=== PATIENT | male | born 1950 | race Caucasian/White ===

== ENCOUNTER → 2016-11-13 | Outpatient (CLI) | payer MEDICARE ==
--- NOTE | 2016-11-13 10:33 | XR ---
EXAMINATION TYPE: XR chest 2V DATE OF EXAM: 11/13/2016 COMPARISON: Chest x-ray 10/30/2015 HISTORY: Hodgkin's lymphoma TECHNIQUE: Frontal and lateral views of the chest are obtained. FINDINGS: There is no focal air space opacity, pleural effusion, or pneumothorax seen. The cardiac silhouette size is within normal limits. The patient is rotated. The osseous structures are intact. IMPRESSION: No acute cardiopulmonary process.
== END | disposition home or self-care (01) ==
LOC: RADXRMAIN 09:42
PROVIDERS: ATTEND Family Medicine
DX: Z08 Encounter for follow-up examination after completed treatment for malignant neoplasm (principal); Z85.71 Personal history of Hodgkin lymphoma
CPT/HCPCS: 71020

== ENCOUNTER → 2017-11-18 | Outpatient (CLI) | payer MEDICARE ==
--- NOTE | 2017-11-18 13:32 | XR ---
EXAMINATION TYPE: XR chest 2V DATE OF EXAM: 11/18/2017 COMPARISON: Prior chest 11/13/2016 HISTORY: Lymphoma TECHNIQUE: Frontal and lateral views of the chest are obtained. FINDINGS: There is no focal air space opacity, pleural effusion, or pneumothorax seen. The cardiac silhouette size is stable. Biapical pleural thickening is stable. The osseous structures are intact. IMPRESSION: No acute cardiopulmonary process.
== END ==
LOC: RADXRMAIN 11:53
PROVIDERS: ATTEND Family Medicine
DX: Z08 Encounter for follow-up examination after completed treatment for malignant neoplasm (principal); Z85.71 Personal history of Hodgkin lymphoma
CPT/HCPCS: 71046

== ENCOUNTER → 2018-02-10 | Outpatient (CLI) | payer MEDICARE ==
--- NOTE | 2018-02-10 12:43 | XR ---
EXAMINATION TYPE: XR cervical spine limited DATE OF EXAM: 02/10/2018 COMPARISON: NONE HISTORY: Pain TECHNIQUE: Three views are submitted. FINDINGS: The odontoid is intact. There are no compression deformities. The prevertebral soft tissue structur es are within normal limits. There is extensive calcification the soft tissue the neck likely relate d atherosclerotic change of the carotid arteries. There is facet arthropathy at all levels with degenerative disc particularly noted at C5-6 and C6-7. Hypertrophic spurring noted. There is a slight anterolisthesis of C3 on C4 and C4 on C5. Lung apices are clear with atherosclerotic change aorta. IMPRESSION: 1. Multilevel degenerative disc disease with anterolisthesis of C3 on 4 and C4 on C5. Consider MRI fo llow-up. 2. Extensive atherosclerotic changes of the carotid arteries correlate clinically.
== END | disposition home or self-care (01) ==
LOC: RADXRMAIN 12:07
PROVIDERS: ATTEND Family Medicine
DX: M50.322 Other cervical disc degeneration at C5-C6 level (principal); M43.12 Spondylolisthesis, cervical region
CPT/HCPCS: 72040

== ENCOUNTER → 2018-10-19 | Outpatient (CLI) | payer MEDICARE ==
--- NOTE | 2018-10-19 11:33 | XR ---
EXAMINATION TYPE: XR chest 2V DATE OF EXAM: 10/19/2018 COMPARISON: 11/18/2017 HISTORY: 68 year-old male history of Hodgkin's lymphoma TECHNIQUE: Frontal and lateral views FINDINGS: Heart normal size. Atherosclerotic arch calcifications. Mild interstitial prominence has a chronic ap pearance. No consolidation or pleural effusion. IMPRESSION: Chronic changes without acute cardiopulmonary process.
== END | disposition home or self-care (01) ==
LOC: RADXRMAIN 09:44
PROVIDERS: ATTEND Family Medicine
DX: Z08 Encounter for follow-up examination after completed treatment for malignant neoplasm (principal); R91.8 Other nonspecific abnormal finding of lung field; Z85.71 Personal history of Hodgkin lymphoma
CPT/HCPCS: 71046

== ENCOUNTER → 2019-11-18 | Outpatient (CLI) | payer MEDICARE ==
--- NOTE | 2019-11-18 11:36 | XR ---
EXAMINATION TYPE: XR chest 2V DATE OF EXAM: 11/18/2019 COMPARISON: Prior chest 10/19/2018 HISTORY: Hodgkin's lymphoma TECHNIQUE: Frontal and lateral views of the chest are obtained. FINDINGS: There is no focal air space opacity, pleural effusion, or pneumothorax seen. Interstitium is increased in the left lung base which appears stable. The cardiac silhouette size is within torie l limits. The aorta is dense. The osseous structures are intact. IMPRESSION: No acute cardiopulmonary process. There may be some underlying interstitial lung disease .
== END | disposition home or self-care (01) ==
LOC: RADXRMAIN 08:10
PROVIDERS: ATTEND Family Medicine
DX: Z85.71 Personal history of Hodgkin lymphoma (principal)
CPT/HCPCS: 71046

== ENCOUNTER → 2020-05-01 | Outpatient (CLI) | payer MEDICARE | END | disposition home or self-care (01) | LOC: LABWHC1 12:51 | PROVIDERS: ATTEND Psychiatry & Neurology Neurology | DX: R53.1 Weakness (principal) | CPT/HCPCS: 36415; 82550; 82607 ==

== ENCOUNTER → 2020-05-09 | Outpatient (CLI) | payer MEDICARE ==
[2020-05-09 13:13] LABS: HCT 46.2 % (39.0-53.0); HGB 15.7 gm/dL (13.0-17.5); MCH 31.7 pg (25.0-35.0); MCHC 33.9 g/dL (31.0-37.0); MCV 93.7 fL (80.0-100.0); Mean Platelet Volume 7.8; Platelet Count 313 k/uL (150-450); RBC 4.94 m/uL (4.30-5.90); RDW 14.2 % (11.5-15.5); WBC 11.5 k/uL (3.8-10.6)
[2020-05-09 13:17] LABS: Potassium 4.9 mmol/L (3.5-5.1)
== END | disposition home or self-care (01) ==
LOC: LABPAT 11:51
PROVIDERS: ATTEND Internal Medicine Interventional Cardiology
DX: Z01.818 Encounter for other preprocedural examination (principal); R94.39 Abnormal result of other cardiovascular function study
CPT/HCPCS: 36415; 80051; 82565; 84520; 85027

== ENCOUNTER 2020-05-11 06:28 | Day surgery (SDC) | payer MEDICARE ==
[2020-05-09 10:22] VITALS: BMI 30.8
[~2020-05-11 06:28] MED LIST: ALPRAZolam 0.25 MG TAB PO PRN; ALPRAZolam 0.5 MG TAB PO PRN; ASPIRIN 325 MG TAB PO STA; ATORVASTATIN 80 MG TAB PO STA; NITROGLYCERIN SL TABS 0.4 MG TAB SUBLINGUAL PRN; SODIUM CHLORIDE 0.9% 1,000 ML in EMPTY BAG 1 BAG IV ONE
[2020-05-11] MEDS ORDERED: SODIUM CHLORIDE 0.9% 1,000 ML IV ONE (07:05)
[2020-05-11 07:11] VITALS: RESP 16; TEMP 98.7
[2020-05-11 07:21] LABS: Basophils # (A) 0.2 k/uL (0-0.2); Basophils % (A) 1 %; Eosinophils # (A) 0.4 k/uL (0-0.7); Eosinophils % (A) 3 %; HGB 15.2 gm/dL (13.0-17.5); Lymphocytes # (A) 2.4 k/uL (1.0-4.8); Lymphocytes % (A) 18 %; MCH 31.9 pg (25.0-35.0); MCHC 34.6 g/dL (31.0-37.0); Monocytes # (A) 1.4 k/uL (0-1.0); Monocytes % (A) 11 %; Neutrophils # (A) 8.8 k/uL (1.3-7.7); Neutrophils % (A) 65 %; Platelet Count 298 k/uL (150-450); RBC 4.79 m/uL (4.30-5.90); RDW 14.1 % (11.5-15.5); WBC 13.6 k/uL (3.8-10.6)
[2020-05-11 07:32] LABS: Calcium 8.8 mg/dL (8.4-10.2)
[2020-05-11 07:37] LABS: Potassium 4.4 mmol/L (3.5-5.1)
[2020-05-11] MEDS ORDERED: VERAPAMIL 2.5 MG/ML 2 ML AMP ONE (08:56)
[2020-05-11] MEDS ORDERED: HEPARIN SODIUM 1,000 UN/ML (10ML VL) ONE (08:56)
[2020-05-11] MEDS ORDERED: LIDOCAINE 1% INJ 10MG/ML (20 ML MDV) ONE (08:56)
[2020-05-11] MEDS ORDERED: LIDOCAINE 1% INJ 10MG/ML (20 ML MDV) SQ ONE (09:13)
[2020-05-11] MEDS ORDERED: MIDAZOLAM 2 MG/2 ML VIAL IVP ONE (09:13)
[2020-05-11] MEDS ORDERED: VERAPAMIL SYRINGE (5 MG/10 ML) INTRAARTER ONE (09:17)
[2020-05-11] MEDS ORDERED: HEPARIN SODIUM 1,000 UN/ML (10ML VL) IV ONE (09:19)
[2020-05-11] MEDS ORDERED: IOPAMIDOL-370 125ML BTL INJ ONE (09:25)
[2020-05-11] MEDS ORDERED: RX INFO: IV CONTRAST WAS GIVEN 1 EACH MISC MISCELLANE PRN (09:31)
[2020-05-11] MEDS ORDERED: SODIUM CHLORIDE 0.9% 1,000 ML IV SCH (09:45)
--- NOTE | 2020-05-11 09:59 | CC ---
CARDIAC CATHETERIZATION REPORT DATE OF SERVICE: 05/11/2020 PERFORMING PHYSICIAN: Ayaz Sherman MD. PROCEDURE PERFORMED: 1. Selective right and left coronary angiogram. 2. Left heart catheterization. 3. Gradient measurement across the right subclavian. 4. Right subclavian angiogram. INDICATION: This is a 70-year-old gentleman with paroxysmal atrial fibrillation as well as hypertension and dyslipidemia, was experiencing symptoms of shortness of breath with exertion and underwent myocardial perfusion imaging stress test and that revealed reversible inferior defect. Because of that, he was brought today to undergo an intervention. APPROACH: Right radial artery. COMPLICATION: None. LEVEL OF SEDATION: Moderate with sedation length of 13 minutes. PROCEDURE DESCRIPTION: After obtaining AN informed consent, the patient was brought to the cardiac laboratory engineer. The right radial artery was cannulated using micropuncture technique, the micropuncture wire passed easily, then I placed a 6-Scottish sheath at the right radial artery. After that, I advanced a 0.035 wire, but the wire stuck in the distal right subclavian. I was able to cross that using a glidewire. After that, I did selective right and left coronary angiogram with JR4 and JL3.5 catheters. Left heart catheterization was performed using the JR4 catheter which crossed the aortic valve, then I did pullback across the valve. The procedure was completed without any complication. SELECTIVE CORONARY ANGIOGRAM: 1. The right coronary artery is a large caliber vessel, it is a dominant vessel. The RCA has mild disease only. Distally bifurcates into PDA and PLV branches, both appeared to be angiographically. 2. The left main is angiographically normal, it bifurcates into LCX and LAD. 3. The LCX is a large caliber vessel, it is a nondominant vessel. The LCX is angiographically normal in the midportion, gives rise into a large OM branch which appeared to be angiographically normal and the circumflex continues after that as a small-caliber vessel in the AV groove. 4. The LAD is a large caliber vessel and appeared to be angiographically normal in the midportion, gives rise into a large diagonal branch which seems to be angiographically normal. 5. HEMODYNAMICS: The LVEDP was 12 mmHg without significant gradient across the aortic valve. 6. Gradient across the right subclavian. The gradient across the right subclavian was measured using JR4 catheter. The gradient was non-significant. Then a right subclavian angiogram was performed and that revealed mild to moderate lesion in the right subclavian, appeared to be calcified. CONCLUSION: 1. Mild nonobstructive coronary artery disease. 2. Intermediate lesion involving the right subclavian artery. POSTPROCEDURE MANAGEMENT: 1. Medical treatment. 2. Aggressive cholesterol control. 3. Follow up with the patient. MMKEITH / NICHON: [id number] /
[2020-05-11 11:08] VITALS: BP 104/62; PULSE 81
== END 2020-05-11 12:37 | disposition home or self-care (01) ==
LOC: CATHCVL 06:28
PROVIDERS: ATTEND Internal Medicine Interventional Cardiology
DX: I25.110 Atherosclerotic heart disease of native coronary artery with unstable angina pectoris (principal); I77.89 Other specified disorders of arteries and arterioles; R06.02 Shortness of breath; R94.39 Abnormal result of other cardiovascular function study; R00.2 Palpitations; I48.0 Paroxysmal atrial fibrillation; I10 Essential (primary) hypertension; E78.5 Hyperlipidemia, unspecified; E78.00 Pure hypercholesterolemia, unspecified; G89.29 Other chronic pain; M79.10 Myalgia, unspecified site; R53.1 Weakness; I49.3 Ventricular premature depolarization; E66.3 Overweight; Z87.891 Personal history of nicotine dependence; Z79.899 Other long term (current) drug therapy; Z79.01 Long term (current) use of anticoagulants; Z79.891 Long term (current) use of opiate analgesic; Z68.30 Body mass index [BMI] 30.0-30.9, adult
CPT/HCPCS: 93458; 75710; 80048; 85025; C1769; J2250; J2001; J1644; Q9967

== ENCOUNTER → 2020-05-22 | Outpatient (CLI) | payer MEDICARE | END | disposition home or self-care (01) | LOC: CPPFTMAIN 14:02 | PROVIDERS: ATTEND Family Medicine | DX: J44.9 Chronic obstructive pulmonary disease, unspecified (principal); R94.2 Abnormal results of pulmonary function studies | CPT/HCPCS: 94060; 94726; 94729 ==

== ENCOUNTER 2020-06-09 19:27 | Inpatient (IN) | payer MEDICARE ==
--- NOTE | 2020-06-09 20:04 | ED ---
General Adult HPI - General Chief complaint: Extremity Problem,Nontraumatic Stated complaint: Swelling Time Seen by Provider: 06/09/20 19:43 Source: patient, RN notes reviewed, old records reviewed Mode of arrival: ambulatory Limitations: no limitations - History of Present Illness Initial comments: 70-year-old male presenting with pain and swelling in the left hand and forearm. Patient had surgery on his left thumb on May 25. He's had progressive pain and swelling in the left hand and forearm. He states he has pain with range of motion of any of his fingers. He denies fever. He has history of splenectomy, he is on chronic steroids for inflammatory condition. He was seen by orthopedics on June 03 and for evaluation of these symptoms. He states that he was given a steroid injection on the in his left wrist. He denies fever or constitutional symptoms. - Related Data Home Medications Medication Instructions Recorded Confirmed Atorvastatin [Lipitor] 40 mg PO PC-SUPPER 01/11/15 05/09/20 lisinopriL 40 mg PO PC-SUPPER 01/11/15 05/11/20 HYDROcodone/APAP 7.5-325MG [[place] 1 tab PO BID PRN 03/14/15 05/11/20 7.5-325] Metoprolol Succinate [Toprol XL] 25 mg PO PC-SUPPER 05/09/20 05/11/20 Tamsulosin [Flomax] 0.4 mg PO PC-SUPPER 05/09/20 05/11/20 amLODIPine [Norvasc] 5 mg PO DAILY 05/09/20 05/11/20 Allergies Allergy/AdvReac Type Severity Reaction Status Date / Time No Known Allergies Allergy Verified 06/09/20 21:11 Review of Systems ROS Statement: Those systems with pertinent positive or pertinent negative responses have been documented in the HPI. ROS Other: All systems not noted in ROS Statement are negative. 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 cluster migraines, eczema, History of Any Multi-Drug Resistant Organisms: None Reported Past Surgical History: Back Surgery, Heart Catheterization, Orthopedic Surgery Additional Past Surgical History / Comment(s): lumbar laminectomy with decompression L2-3. lumbar surgery x2, left carpal tunnel, spleenectomy, gunnar cataracts, left thumb trigger finger Past Anesthesia/Blood Transfusion Reactions: No Reported Reaction Past Psychological History: No Psychological Hx Reported Smoking Status: Former smoker Past Alcohol Use History: None Reported Past Drug Use History: None Reported - Past Family History Brother(s) Family Medical History: Cancer Additional Family Medical History / Comment(s): colon Sister(s) Family Medical History: Cancer Additional Family Medical History / Comment(s): uterine General Exam Limitations: no limitations General appearance: alert, in no apparent distress Head exam: Present: atraumatic, normocephalic Eye exam: Present: normal appearance, PERRL ENT exam: Present: normal exam Neck exam: Present: normal inspection. Absent: tenderness, meningismus Respiratory exam: Present: normal lung sounds bilaterally. Absent: respiratory distress Cardiovascular Exam: Present: regular rate, normal rhythm GI/Abdominal exam: Present: soft. Absent: distended, tenderness, guarding, rebound Extremities exam: Present: other (Left hand and forearm:, There is soft tissue swelling throughout the hand to the elbow. There is no warmth, minimal erythema. There is no fluctuance or induration. Normal cap refill. He has significant pain with both active and passive range of motion of all digits. Both on flexion and extensio) Course Vital Signs 06/09/20 19:33 Temperature 98.6 F Pulse Rate 110 H Respiratory 18 Rate Blood Pressure 154/91 O2 Sat by Pulse 96 Oximetry Medical Decision Making - Medical Decision Making 70-year-old male with pain and swelling in the left forearm, recent trigger release first digit. Surgical incision is clean dry and intact, no erythema, no purulent drainage. Patient is in a flexed posture of the digits with pain with range of motion. There is soft tissue swelling throughout the hand and forearm and tenderness on the palmar surface of the wrist. There is minimal erythema, no induration or fluctuance. I do have a high suspicion for deep space infect ion including a flexor tenosynovitis. Patient has history of chronic daily steroid use, 10 mg of prednisone as well as surgical history of splenectomy. Patient is afebrile and otherwise well-appearing. He has no leukocytosis white blood cell count of 20, and elevated CRP. I did discuss case with Dr. Molina covering for [facility]. He does recommend initiating antibiotics, patient is initiated on Unasyn and vancomycin. He will be admitted to orthopedics with internal medicine on consult. NPO after midnight. - Lab Data Result diagrams: 06/09/20 20:05 06/09/20 20:05 Lab Results 06/09/20 06/09/20 06/09/20 Range/Units 20:05 20:05 20:05 WBC 19.9 H (3.8-10.6) k/uL RBC 4.72 (4.30-5.90) m/uL Hgb 14.8 (13.0-17.5) gm/dL Hct 43.8 (39.0-53.0) % MCV 92.7 (80.0-100.0) fL MCH 31.3 (25.0-35.0) pg MCHC 33.8 (31.0-37.0) g/dL RDW 14.1 (11.5-15.5) % Plt Count 326 (150-450) k/uL MPV 7.5 Neutrophils % 79 % Lymphocytes % 7 % Monocytes % 9 % Eosinophils % 2 % Basophils % 2 % Neutrophils # 15.7 H (1.3-7.7) k/uL Lymphocytes # 1.4 (1.0-4.8) k/uL Monocytes # 1.7 H (0-1.0) k/uL Eosinophils # 0.4 (0-0.7) k/uL Basophils # 0.4 H (0-0.2) k/uL Sodium 136 L (137-145) mmol/L Potassium 4.4 (3.5-5.1) mmol/L Chloride 106 (98-107) mmol/L Carbon Dioxide 23 (22-30) mmol/L Anion Gap 7 mmol/L BUN 31 H (9-20) mg/dL Creatinine 1.09 (0.66-1.25) mg/dL Est GFR (CKD-EPI)AfAm 80 (>60 ml/min/1.73 sqM) Est GFR (CKD-EPI)NonAf 69 (>60 ml/min/1.73 sqM) Glucose 118 H (74-99) mg/dL Plasma Lactic Acid Artur 1.8 (0.7-2.0) mmol/L Calcium 9.0 (8.4-10.2) mg/dL Magnesium 2.2 (1.6-2.3) mg/dL Total Bilirubin 0.3 (0.2-1.3) mg/dL AST 24 (17-59) U/L ALT 32 (4-49) U/L Alkaline Phosphatase 59 (38-126) U/L C-Reactive Protein 56.6 H (<10.0) mg/L Total Protein 6.7 (6.3-8.2) g/dL Albumin 3.9 (3.5-5.0) g/dL Disposition Clinical Impression: Suppurative tenosynovitis of flexor tendon Disposition: ADMITTED IP TO THIS [facility] Condition: Stable Is patient prescribed a controlled substance at d/c from ED?: No Referrals: Prashant Baez DO [Primary Care Provider] - 1-2 days Decision to Admit Reason: Admit from EC Decision Date: 06/09/20 Decision Time: 21:11
[2020-06-09 20:22] LABS: Basophils # (A) 0.4 k/uL (0-0.2); Basophils % (A) 2 %; Eosinophils # (A) 0.4 k/uL (0-0.7); Eosinophils % (A) 2 %; HCT 43.8 % (39.0-53.0); HGB 14.8 gm/dL (13.0-17.5); Lymphocytes # (A) 1.4 k/uL (1.0-4.8); Lymphocytes % (A) 7 %; MCH 31.3 pg (25.0-35.0); MCHC 33.8 g/dL (31.0-37.0); MCV 92.7 fL (80.0-100.0); Mean Platelet Volume 7.5; Monocytes # (A) 1.7 k/uL (0-1.0); Monocytes % (A) 9 %; Neutrophils # (A) 15.7 k/uL (1.3-7.7); Neutrophils % (A) 79 %; Platelet Count 326 k/uL (150-450); RBC 4.72 m/uL (4.30-5.90); RDW 14.1 % (11.5-15.5); WBC 19.9 k/uL (3.8-10.6)
[2020-06-09 20:34] LABS: Albumin 3.9 g/dL (3.5-5.0); C Reactive Protein 56.6 mg/L (<10.0); Magnesium 2.2 mg/dL (1.6-2.3); Potassium 4.4 mmol/L (3.5-5.1); Total Bilirubin 0.3 mg/dL (0.2-1.3); Total Protein 6.7 g/dL (6.3-8.2)
[2020-06-09] MEDS ORDERED: AMPICILLIN-SULBACTAM 3 GM in SODIUM CHLORIDE 0.9% 100 ML IVPB STA (20:49)
[2020-06-09] MEDS ORDERED: VANCOMYCIN IV PER PHARMACY 1 EACH MISC MISCELLANE PRN (20:50)
--- NOTE | 2020-06-09 20:55 | US ---
EXAMINATION TYPE: US venous doppler duplex UE LT DATE OF EXAM: 06/09/2020 COMPARISON: NONE CLINICAL HISTORY: dvt. Recent trigger finger surgery. pain and redness left wrist SIDE PERFORMED: Left Left Arm: Negative for DVT There is patency of the jugular subclavian axillary brachial veins. There is patency of the ulna and radial veins. There is normal augmentation. IMPRESSION: There is no evidence of deep vein thrombosis in the left arm.
[2020-06-09] MEDS ORDERED: VANCOMYCIN 1,500 MG in SODIUM CHLORIDE 0.9% 250 ML IVPB STA (20:57)
--- NOTE | 2020-06-09 20:57 | US ---
EXAMINATION TYPE: US extremity nonvasc mass LT DATE OF EXAM: 06/09/2020 COMPARISON: NONE CLINICAL HISTORY: Abscess, fluid collection, palmar left forearm. recent trigger finger surgery. lef t wrist lump, redness, swelling No sonographic abnormality visualized IMPRESSION: No discrete solid or cystic mass identified in the area of concern with the soft tissue s welling.
[2020-06-09] MEDS ORDERED: MORPHINE SULFATE 4 MG/ML SYRINGE IVP STA (21:01)
[2020-06-09] MEDS ORDERED: MORPHINE SULFATE 4 MG/ML SYRINGE IV PRN (21:02)
[2020-06-09] MEDS ORDERED: NALOXONE 0.4 MG/ML 1 ML VIAL IV PRN (21:02)
[2020-06-09] MEDS ORDERED: ACETAMINOPHEN TAB 325 MG TAB PO PRN (21:02)
[2020-06-09] MEDS: SODIUM CHLORIDE 0.9% 1,000 ML IV SCH (21:40)
[2020-06-09] MEDS ORDERED: HYDROmorphone 0.2 MG/1 ML SYRINGE IVP PRN (22:46)
[2020-06-09] MEDS: HYDROmorphone 0.5 MG/0.5 ML SYRINGE IVP PRN (23:08)
[2020-06-10] MEDS: AMPICILLIN-SULBACTAM 3 GM in SODIUM CHLORIDE 0.9% 100 ML IVPB SCH ×3 (01:10→18:55)
[2020-06-10] MEDS: HYDROmorphone 0.5 MG/0.5 ML SYRINGE IVP PRN ×3 (01:54→08:11)
[2020-06-10] MEDS ORDERED: HYDROmorphone 1 MG/ML 1 ML SYRINGE IVP STA (02:38)
[2020-06-10 07:04] LABS: Basophils # (A) 0.3 k/uL (0-0.2); Basophils % (A) 2 %; Eosinophils # (A) 0.2 k/uL (0-0.7); Eosinophils % (A) 2 %; HCT 44.4 % (39.0-53.0); HGB 15.2 gm/dL (13.0-17.5); Lymphocytes # (A) 2.1 k/uL (1.0-4.8); Lymphocytes % (A) 13 %; MCH 32.1 pg (25.0-35.0); MCHC 34.1 g/dL (31.0-37.0); MCV 94.1 fL (80.0-100.0); Mean Platelet Volume 7.6; Monocytes # (A) 1.7 k/uL (0-1.0); Monocytes % (A) 11 %; Neutrophils % (A) 71 %; Platelet Count 322 k/uL (150-450); RBC 4.72 m/uL (4.30-5.90); RDW 14.4 % (11.5-15.5); WBC 15.6 k/uL (3.8-10.6)
[2020-06-10 07:12] LABS: Albumin 3.8 g/dL (3.5-5.0); Calcium 8.9 mg/dL (8.4-10.2); Magnesium 2.3 mg/dL (1.6-2.3); Potassium 4.5 mmol/L (3.5-5.1); Total Bilirubin 0.5 mg/dL (0.2-1.3); Total Protein 6.7 g/dL (6.3-8.2)
[2020-06-10] MEDS: VANCOMYCIN 1,500 MG in SODIUM CHLORIDE 0.9% 250 ML IVPB SCH ×2 (08:11→21:07)
[2020-06-10] MEDS: amLODIPine 5 MG TAB PO SCH (08:11)
[2020-06-10] MEDS: HYDROcodone/APAP 7.5-325MG 1 EACH TAB PO PRN ×3 (08:59→19:58)
--- NOTE | 2020-06-10 10:04 | P.HPOR ---
History of Present Illness H&P Date: 06/10/20 This is a 70-year-old was admitted for left hand infection. Patient is known to [facility]. Patient states that he had surgery for trigger thumb on May 25. Patient states that he was seen on the and 05 of June for swelling in the left hand. Patient states that he was also given an injection in the left wrist on 06/05/2020. Patient states that last night the swelling started spreading to his left forearm and he has pain with any motion of the fingers of the left hand. Patient states that he takes steroids daily. Patient denies any shortness breath, chest pain, abdominal pain or any fever/chills. Patient's past medical history significant for atrial fibrillation , splenectomy, fibromyalgia, COPD, hyperlipidemia, hypertension, history of non- Hodgkin's lymphoma, eczema and history of lumbar laminectomy and decompression. Review of Systems See HPI. 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 cluster migraines, eczema, History of Any Multi-Drug Resistant Organisms: None Reported Past Surgical History: Back Surgery, Heart Catheterization, Orthopedic Surgery Additional Past Surgical History / Comment(s): lumbar laminectomy with decompression L2-3. lumbar surgery x2, left carpal tunnel, spleenectomy, gunnar cataracts, left thumb trigger finger Past Anesthesia/Blood Transfusion Reactions: No Reported Reaction Past Psychological History: No Psychological Hx Reported Additional Psychological History / Comment(s): . Smoking Status: Former smoker Past Alcohol Use History: None Reported Additional Past Alcohol Use History / Comment(s): Pt started smoking in 1968 and quit in 2007, 1 PPD Past Drug Use History: None Reported - Past Family History Brother(s) Family Medical History: Cancer Additional Family Medical History / Comment(s): colon Sister(s) Family Medical History: Cancer Additional Family Medical History / Comment(s): uterine Medications and Allergies Home Medications Medication Instructions Recorded Confirmed Type lisinopriL 40 mg PO PC-SUPPER 01/11/15 06/09/20 History HYDROcodone/APAP 7.5-325MG [[place] 1 tab PO BID PRN 03/14/15 06/09/20 History 7.5-325] Metoprolol Succinate [Toprol XL] 25 mg PO PC-SUPPER 05/09/20 06/09/20 History Tamsulosin [Flomax] 0.4 mg PO PC-SUPPER 05/09/20 06/09/20 History Ammonium Lactate Cream [Lac-Hydrin 1 applic TOPICAL BID PRN 06/09/20 06/09/20 History 12% Cream] Ascorbic Acid [Vitamin C] 1,000 mg PO DAILY 06/09/20 06/09/20 History Atorvastatin Calcium [Lipitor] 40 mg PO PC-SUPPER 06/09/20 06/09/20 History Cyclobenzaprine [Flexeril] 10 mg PO TID PRN 06/09/20 06/09/20 History Lidocaine 4% Cream [Lmx 4] 1 applic TOPICAL DAILY 06/09/20 06/09/20 History Tiotropium Br/Olodaterol HCl 2 spray INHALATION RT-DAILY 06/09/20 06/09/20 History [Stiolto Respimat Inhal [place]] amLODIPine [Norvasc] 10 mg PO DAILY 06/09/20 06/09/20 History diphenhydrAMINE [Benadryl] 50 mg PO DAILY PRN 06/09/20 06/09/20 History predniSONE 10 mg PO DAILY 06/09/20 06/09/20 History Allergies Allergy/AdvReac Type Severity Reaction Status Date / Time No Known Allergies Allergy Verified 06/09/20 21:11 Physical Examination Vital signs are stable. Patient is in no acute distress and is alert and oriented 3. There is swelling of the left hand. There is pain with passive range of motion of the fingers of the left hand. There is a healing incision over the volar aspect of the left thumb. There is no drainage. There is swelling over the volar aspect of the left wrist and forearm. Compartments are soft. There is mild erythema over the palmar aspect of the left hand. There is erythema with the volar aspect of the left wrist. Patient has pain with range of motion of the left wrist. Sensation is intact. The left upper extremity is warm and well perfused. Neurovascular status and circulatory status are intact. Exams of the head, neck, right upper extremity and bilateral lower extremities are within normal limits. Results A venous Doppler ultrasound of the left upper extremity is negative for DVT. An ultrasound of the left upper extremity shows: No discrete solid or cystic mass identified in the area of concern with the soft tissue swelling. - Labs Labs: Abnormal Lab Results - Last 24 Hours (Table) 06/09/20 06/09/20 06/10/20 Range/Units 20:05 20:05 06:37 WBC 19.9 H 15.6 H (3.8-10.6) k/uL Neutrophils # 15.7 H 11.0 H (1.3-7.7) k/uL Monocytes # 1.7 H 1.7 H (0-1.0) k/uL Basophils # 0.4 H 0.3 H (0-0.2) k/uL Sodium 136 L (137-145) mmol/L BUN 31 H (9-20) mg/dL Glucose 118 H (74-99) mg/dL C-Reactive Protein 56.6 H (<10.0) mg/L 06/10/20 Range/Units 06:37 WBC (3.8-10.6) k/uL Neutrophils # (1.3-7.7) k/uL Monocytes # (0-1.0) k/uL Basophils # (0-0.2) k/uL Sodium 136 L (137-145) mmol/L BUN 33 H (9-20) mg/dL Glucose 110 H (74-99) mg/dL C-Reactive Protein (<10.0) mg/L H & H 06/09/20 06/10/20 Range/Units 20:05 06:37 Hgb 14.8 15.2 (13.0-17.5) gm/dL Hct 43.8 44.4 (39.0-53.0) % Result Diagrams: 06/10/20 06:37 06/10/20 06:37 Assessment and Plan (1) Flexor tenosynovitis of thumb Current Visit: Yes Status: Acute Code(s): M65.9 - SYNOVITIS AND TENOSYNOVITIS, UNSPECIFIED SNOMED Code(s): 672111447 (2) Infection of left hand Current Visit: Yes Status: Acute Code(s): L08.9 - LOCAL INFECTION OF THE SKIN AND SUBCUTANEOUS TISSUE, UNSP SNOMED Code(s): 835801433 (3) Status post trigger finger release Current Visit: Yes Status: Acute Code(s): Z98.890 - OTHER SPECIFIED POSTPROCEDURAL STATES SNOMED Code(s): 585215014 Plan: 1. Patient is to be NPO. 2. Continue pain control. 3. Rest and elevate the left arm. 4. Patient is afebrile. White blood cell count is trending down from 19.9 to 15.6 today. 5. Appreciate input from medicine. 6. Planning for I&D of the left hand and wrist by Dr Otf Mckenzie later today pending patient consent.
[2020-06-10] MEDS ORDERED: HYDROmorphone 0.2 MG/1 ML SYRINGE IVP PRN (10:07)
[2020-06-10] MEDS ORDERED: HYDROmorphone 0.5 MG/0.5 ML SYRINGE IVP PRN (10:07)
[2020-06-10] MEDS: HYDROmorphone 1 MG/ML 1 ML SYRINGE IVP PRN ×3 (11:08→21:20)
--- NOTE | 2020-06-10 14:21 | P.CNPUL ---
History of Present Illness Consult date: 06/10/20 Reason for consult: other Chief complaint: Infected left hand History of present illness: This is a 70-year-old male came into the hospital with the pain and stiffness of the left hand and forearm, patient had the prior surgery back in 05/25/2020 on the left common, pain has been progressive with limited range of movement also has been swelling and erythematous and edema, patient does have a history of splenectomy have been on steroids for chronic inflammatory condition, patient was given a steroid shot back on May 27 in the left wrist without any significant relief, past medical history significant for dyslipidemia hypertension hypertensive cardiovascular disease, arthritis, paroxysmal atrial fibrillation and COPD non-Hodgkin's lymphoma Review of Systems All systems: negative Past Medical History Past Medical History: Atrial Fibrillation, Cancer, COPD, Fibromyalgia, Hyperlipidemia, Hypertension, Osteoarthritis (OA), Skin Disorder Additional Past Medical History / Comment(s): 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 cluster migraines, eczema, History of Any Multi-Drug Resistant Organisms: None Reported Past Surgical History: Back Surgery, Heart Catheterization, Orthopedic Surgery Additional Past Surgical History / Comment(s): lumbar laminectomy with decompression L2-3. lumbar surgery x2, left carpal tunnel, spleenectomy, gunnar cataracts, left thumb trigger finger Past Anesthesia/Blood Transfusion Reactions: No Reported Reaction Past Psychological History: No Psychological Hx Reported Additional Psychological History / Comment(s): . Smoking Status: Former smoker Past Alcohol Use History: None Reported Additional Past Alcohol Use History / Comment(s): Pt started smoking in 1968 and quit in 2007, 1 PPD Past Drug Use History: None Reported - Past Family History Brother(s) Family Medical History: Cancer Additional Family Medical History / Comment(s): colon Sister(s) Family Medical History: Cancer Additional Family Medical History / Comment(s): uterine Medications and Allergies Home Medications Medication Instructions Recorded Confirmed Type lisinopriL 40 mg PO PC-SUPPER 01/11/15 06/09/20 History HYDROcodone/APAP 7.5-325MG [Novi 1 tab PO BID PRN 03/14/15 06/09/20 History 7.5-325] Metoprolol Succinate [Toprol XL] 25 mg PO PC-SUPPER 05/09/20 06/09/20 History Tamsulosin [Flomax] 0.4 mg PO PC-SUPPER 05/09/20 06/09/20 History Ammonium Lactate Cream [Lac-Hydrin 1 applic TOPICAL BID PRN 06/09/20 06/09/20 History 12% Cream] Ascorbic Acid [Vitamin C] 1,000 mg PO DAILY 06/09/20 06/09/20 History Atorvastatin Calcium [Lipitor] 40 mg PO PC-SUPPER 06/09/20 06/09/20 History Cyclobenzaprine [Flexeril] 10 mg PO TID PRN 06/09/20 06/09/20 History Lidocaine 4% Cream [Lmx 4] 1 applic TOPICAL DAILY 06/09/20 06/09/20 History Tiotropium Br/Olodaterol HCl 2 spray INHALATION RT-DAILY 06/09/20 06/09/20 History [Stiolto Respimat Inhal [place]] amLODIPine [Norvasc] 10 mg PO DAILY 06/09/20 06/09/20 History diphenhydrAMINE [Benadryl] 50 mg PO DAILY PRN 06/09/20 06/09/20 History predniSONE 10 mg PO DAILY 06/09/20 06/09/20 History Allergies Allergy/AdvReac Type Severity Reaction Status Date / Time No Known Allergies Allergy Verified 06/09/20 21:11 Physical Exam Vitals: Vital Signs Temp Pulse Pulse Resp BP BP Pulse Ox 06/10/20 09:21 14 06/10/20 08:04 97.4 F L 85 14 125/75 96 06/10/20 03:00 97.8 F 87 18 92/65 94 L 06/09/20 21:42 98.8 F 110 H 18 156/106 96 06/09/20 21:32 97 F L 104 H 18 138/78 06/09/20 19:33 98.6 F 110 H 18 154/91 96 Intake and Output 06/09/20 06/10/20 06/10/20 22:59 06:59 14:59 Other: Voiding Method Toilet # Voids 1 1 Weight 97.522 kg - Constitutional General appearance: average body habitus, cooperative, disheveled - EENT Eyes: PERRLA Ears: bilateral: normal - Neck Neck: normal ROM Carotids: bilateral: upstroke normal Thyroid: bilateral: normal size - Respiratory Respiratory: bilateral: CTA - Cardiovascular Rhythm: regular Heart sounds: normal: S1, S2 - Gastrointestinal General gastrointestinal: decreased bowel sounds, soft - Integumentary Left hand and forearm swelling with a right hematoma edema Results - Laboratory Findings CBC and BMP: 06/10/20 06:37 06/10/20 06:37 Abnormal lab findings: Abnormal Labs 06/09/20 06/09/20 06/10/20 20:05 20:05 06:37 WBC 19.9 H 15.6 H Neutrophils # 15.7 H 11.0 H Monocytes # 1.7 H 1.7 H Basophils # 0.4 H 0.3 H Sodium 136 L BUN 31 H Glucose 118 H C-Reactive Protein 56.6 H 06/10/20 06:37 WBC Neutrophils # Monocytes # Basophils # Sodium 136 L BUN 33 H Glucose 110 H C-Reactive Protein - Diagnostic Findings Additional studies: X-ray of the hand ultrasound no DVT is seen, Assessment and Plan Assessment: Cellulitis left hand Sepsis Hypertension hypertensive cardiovascular disease Dyslipidemia History of lymphoma Immunosuppressed status due to long-term prednisone use as well as in splenectomy Plan: Agree with IV vancomycin and Unasyn Recommend infectious disease evaluation Time with Patient: Greater than 30
[2020-06-10] MEDS ORDERED: fentaNYL (PF) 50 MCG/ML 2 ML AMP IVP ONE (17:08)
[2020-06-10] MEDS ORDERED: PROPOFOL 10 MG/ML 20 ML VIAL IV ONE (17:22)
[2020-06-10] MEDS ORDERED: BUPIVACAINE (PF) 0.25% 30 ML VIAL SQ ONE ×2 (17:22)
[2020-06-10] MEDS ORDERED: fentaNYL (PF) 50 MCG/ML 2 ML AMP ONE (17:22)
[2020-06-10] MEDS ORDERED: LIDOCAINE 1% INJ 10MG/ML (20 ML MDV) ONE (17:22)
[2020-06-10] MEDS ORDERED: MIDAZOLAM 2 MG/2 ML VIAL ONE (17:22)
[2020-06-10] MEDS ORDERED: PHENYLEPHRINE 10 MG/ML VIAL ONE (17:22)
[2020-06-10] MEDS ORDERED: SODIUM CHLORIDE 0.9% 1,000 ML IV ONE (17:22)
--- NOTE | 2020-06-10 18:08 | P.OP ---
Date of Procedure: 06/10/20 Preoperative Diagnosis: Postoperative infection left hand Postoperative Diagnosis: Postoperative infection left hand Procedure(s) Performed: Incision and drainage of the left hand Anesthesia: JOHN Surgeon: Otf Mckenzie Estimated Blood Loss (ml): 10 Pathology: other (Aerobic and anaerobic culture) Condition: stable Disposition: PACU Indications for Procedure: This is a 70-year-old gentleman has recently had a trigger thumb release of his left hand. He presented with pain and swelling recently in the office an injection was performed of the wrist. He continued to have significant pain and swelling in his left hand and forearm and presented to the hospital. Patient was admitted, seen and examined and I have recommended an incision and drainage of the left hand due to the significant possibility of a deep space infection. Informed consent was obtained. Operative Findings: The operative findings are consistent with a postoperative infection of the left trigger finger around the flexor tendon of the left thumb. No evidence of any infection at the volar wrist or dorsum of the hand. Description of Procedure: The patient was seen in the preoperative area. The operative site was marked after reviewing the consent. Patient was then brought to the operating room and given a general anesthetic by the anesthesia department. Tourniquet was placed on left upper arm the left upper extremities prepped and draped in the usual sterile fashion. A universal timeout was then performed which confirmed the patient's name, surgical site, ALLERGIES, and consent. The left upper extremity was then exsanguinated, and the tourniquet was inflated to 250 mmHg. The hand wrist and forearm was then examined there was no significant erythema there is large amount of swelling in the palmar aspect of the left hand and the digits of the left hand there is also some moderate swelling on the dorsum of the hand and extending into the forearm. Next, the prior trigger finger release incision site was opened and extended both proximally and distally. Upon entry into this area a large amount of purulent material was encountered. This was cultured. The purulent material was evacuated and the tendon sheath opened both proximally and distally. The tendon was found to be intact. There area was then irrigated with antibiotic solution. Next a volar incision was made in the area of the carpal tunnel with the skin and subcu tissue sharply incised. The carpal tunnel was then opened and examined there is no evidence of any purulent material there. Next another incision was made on the dorsum of the hand, which only clear edematous liquid was encountered. There was no purulent material on the dorsum of the hand. Next all 3 incision sites were then irrigated with antibiotic solution. A second look was then made at the trigger finger site to ensure all the purulent material was evacuated. The wounds were then closed with 4-0 nylon. 30 mL of quarter percent plain Marcaine were injected about the surgical sites. Sterile dressings were applied, the tourniquet was released, and the patient was transferred recovery room in stable condition.
[2020-06-10] MEDS ORDERED: LACTATED RINGERS 1,000 ML IV ONE (18:12)
[2020-06-10] MEDS ORDERED: SENNOSIDES-DOCUSATE SODIUM 1 EACH TAB PO PRN (18:17)
[2020-06-10] MEDS ORDERED: ONDANSETRON 4 MG/2 ML VIAL IVP PRN (18:17)
[2020-06-10] MEDS: SODIUM CHLORIDE 0.9% 1,000 ML IV SCH ×2 (19:00→19:36)
[2020-06-10] MEDS: ATORVASTATIN 40 MG TAB PO SCH (19:05)
[2020-06-10] MEDS: lisinopriL 20 MG TAB PO SCH (19:05)
[2020-06-10] MEDS: METOPROLOL SUCCINATE (ER) 25 MG TAB.ER.24H PO SCH (19:59)
--- NOTE | 2020-06-10 23:41 | CONS ---
CONSULTATION DATE OF SERVICE: 06/10/2020. REASON FOR CONSULTATION: Left hand abscess and bacteremia. HISTORY OF PRESENT ILLNESS: The patient is a 70-year-old male who is status post left trigger thumb release on May 25, 2020. The patient subsequently started having more pain and swelling and redness to the left hand area for which the patient has been evaluated by [facility] on June 04 and June 05. This patient also received an injection to the left wrist on June 05. The patient mentioned last night the swelling started to spread to left forearm and some more pain on motion of the fingers in the left hand. The patient described the pain to be throbbing. Intensity was almost 10 out of 10 in severity with associated swelling and redness. The patient denies high-grade fever. With these symptoms, the patient was advised to go to the [facility] ER. On arrival to the ER, the patient was afebrile. He was tachycardic and did have white count of 19.9. Did have ultrasound that was negative for DVT and did not show any systemic fluid collection. Patient subsequently has been taken to the OR this evening and the patient is status post drainage of the left hand abscess which was noticed to be around the flexor tendon of the left thumb. The patient also have blood cultures drawn which is currently positive with gram-positive cocci. The patient is currently empirically on Unasyn and vancomycin. Infectious Disease was consulted for further management of antibiotic therapy. REVIEW OF SYSTEMS: Positive points have been mentioned in HPI. Rest of the systems are negative. PAST MEDICAL HISTORY: Non-Hodgkin's lymphoma, eczema, chronic back pain, COPD, hyperlipidemia, atrial fibrillation, fibromyalgia. PAST SURGICAL HISTORY: Splenectomy, lumbar laminectomy and decompression, bilateral cataract surgery, left thumb trigger finger release. SOCIAL HISTORY: Remote history of smoking, quit back in 2007. No drinking or drug use. FAMILY HISTORY: Mother history of colon cancer. Sister with a history of uterine cancer. ALLERGIES: No known drug allergies. MEDICATIONS: The patient is currently on Tylenol, Moira, Norvasc, Unasyn 3 g q.8h. he is on Lipitor, Dilaudid, Zestril, Toprol-XL, Narcan, Zofran, Senokot, and vancomycin pharmacy to dose. PHYSICAL EXAMINATION: Blood pressure 133/79 with a pulse of 125, temperature of 98. He is 94% on room air. General description: The patient is an elderly male up in the chair in no distress. No tachypnea or accessory muscles respiration use. HEENT: Examination shows no pallor or scleral icterus. Oral mucous membranes dry. Neck trachea central. No thyromegaly. LUNGS: Unlabored breathing. Clear to auscultation anteriorly. No wheeze or crackles. Heart S1-S2 regular rate and rhythm. ABDOMEN: Soft, no tenderness. No guarding. No rigidity. EXTREMITIES: No edema of the feet. Examination of the left hand swelling and redness which is tender to touch especially on movement. No open wound or any drainage. Neurological: Patient is awake, alert, oriented. Mood and affect normal. LABS: Hemoglobin 15.2, white count 15.6 with a left shift. BUN of 33, creatinine 1.06. Blood culture positive with gram-positive cocci. DIAGNOSTIC IMPRESSION AND PLAN: Patient admitted to the hospital with sepsis secondary to left hand abscess in this patient who did have recent left thumb trigger finger release, status post drainage of the abscess with evidence of gram-positive bacteremia. We will need to cover for MRSA which is the likely pathogen versus other gram-positive pathogen. PLAN: 1. Blood cultures will be repeated to document clearance of bacteremia. 2. Vancomycin pharmacy to dose target of 15 while watching his kidney function and Vanco trough closely. 3. The patient will likely need a PICC line for outpatient IV antibiotic therapy. 4. We will follow on his clinical condition and further adjust medication if needed. Thank you for this consultation. We will follow this patient along with you. MMODL / IJN: [id number] /
[2020-06-11] MEDS: HYDROcodone/APAP 7.5-325MG 1 EACH TAB PO PRN ×4 (00:36→20:18)
[2020-06-11] MEDS: AMPICILLIN-SULBACTAM 3 GM in SODIUM CHLORIDE 0.9% 100 ML IVPB SCH ×4 (00:37→23:39)
[2020-06-11] MEDS: SODIUM CHLORIDE 0.9% 1,000 ML IV SCH ×4 (00:38→23:37)
[2020-06-11] MEDS: HYDROmorphone 1 MG/ML 1 ML SYRINGE IVP PRN ×5 (02:34→21:25)
[2020-06-11] MEDS: amLODIPine 5 MG TAB PO SCH (08:23)
[2020-06-11] MEDS: KETOROLAC 15 MG/ML 1 ML VIAL IVP PRN ×3 (08:24→21:24)
[2020-06-11 09:04] LABS: African American GFR (CKD) >90 (>60 ml/min/1.73 sqM); Non-African American GFR(CKD) 81 (>60 ml/min/1.73 sqM)
[2020-06-11 09:23] LABS: C Reactive Protein 150.1 mg/L (<10.0)
[2020-06-11] MEDS: VANCOMYCIN 1,500 MG in SODIUM CHLORIDE 0.9% 250 ML IVPB SCH ×2 (09:36→21:23)
--- NOTE | 2020-06-11 10:59 | P.PN ---
Subjective Progress Note Date: 06/11/20 This patient is a 70- year old male with a past medical history of atrial fibrillation, fibromyalgia, COPD, hyperlipidemia, hypertension, history of non- Hodgkin's lymphoma, eczema and history of lumbar laminectomy and decompression, who is immunosuppressed due to long-term prednisone use as well as being status- post splenectomy, who is admitted for a left hand infection. The patient had surgery for trigger thumb on May 25. Patient states that he was seen on the and 05 of June for swelling in the left hand. Patient states that he was also given an injection in the left wrist on 06/05/2020. Patient experienced swelling started spreading to his left forearm and pain with any motion of the fingers of the left hand, therefore he presented to [facility] ER for evaluation. Patient was admitted under the care of Dr. Otf Mckenzie for a left hand infection. He was taken to the operating room last evening, and is status-post incision and drainage of the left hand. Today is post-operative day #1. Patient is seen and examined bedside. He states he is experiencing pain in the left hand, although it has improved slightly compared to yesterday. He is able to move his fingers today without significant pain. He is tolerating his diet well. Patient is voiding without issues. He states overall he feels well, he denies fevers, chills, nausea, vomiting. Vital signs stable. Objective - Vital Signs Vital signs: Vital Signs Temp 98 F 06/11/20 09:08 Pulse 88 06/11/20 09:08 Resp 18 06/11/20 09:08 BP 127/81 06/11/20 09:08 Pulse Ox 95 06/11/20 09:08 Intake & Output 06/10/20 06/11/20 06/11/20 18:59 06:59 18:59 Intake Total 500 360 Output Total 10 700 Balance 490 -700 360 Weight 97.522 kg Intake: IV 500 Oral 360 Output: Urine 700 Estimated Blood Loss 10 Other: Voiding Method Toilet Toilet Toilet # Voids 1 2 - Exam On examination, the patient is sitting up in bed in no apparent distress. He is alert and orientated x3. On inspection of the left hand, there is a clean, dry, intact surgical dressing in place. There is no bleeding or drainage through the dressing. The visible p ortion of the fingers are warm and well perfused with brisk capillary refill. Patient is able to flex and extend his fingers actively, without significant discomfort today. Mild pain with PROM of the fingers. No pain with PROM of the elbow. Subjective decreased sensation to light touch of the index and middle fingers. Otherwise sensation is intact. Motor function intact. - Labs CBC & Chem 7: 06/10/20 06:37 06/11/20 06:33 Labs: Abnormal Lab Results - Last 24 Hours (Table) 06/11/20 06/11/20 Range/Units 06:33 06:33 ESR 50 H (0-15) mm/hr C-Reactive Protein 150.1 H (<10.0) mg/L Microbiology - Last 24 Hours (Table) 06/10/20 17:37 Gram Stain - Preliminary Finger - Left First Wound Culture - Preliminary 06/09/20 20:05 Blood Culture Gram Stain - Preliminary Blood 06/10/20 17:37 Anaerobic Culture - Preliminary Finger - Left First 06/09/20 20:07 Blood Culture - Preliminary Blood No Growth after 24 hours 06/09/20 20:05 Blood Culture - Final Blood Assessment and Plan Assessment: Status-post left hand incision and drainage. Post-operative day #1. Plan: - We will leave current surgical dressing in place until tomorrow. He may perform gentle, active ROM of the fingers as tolerated. - Cultures pending. Antibiotic management per infectious disease. - Keep left hand elevated for swelling control. - Pain management as needed. - Appreciate internal medicine input. - We will follow patient closely and make recommendations as needed.
[2020-06-11] MEDS ORDERED: VANCOMYCIN TROUGH DUE 1 EACH MISC MISCELLANE ONE (20:00)
[2020-06-11] MEDS: lisinopriL 20 MG TAB PO SCH (20:18)
[2020-06-11] MEDS: METOPROLOL SUCCINATE (ER) 25 MG TAB.ER.24H PO SCH (20:18)
[2020-06-11] MEDS: ATORVASTATIN 40 MG TAB PO SCH (20:18)
--- NOTE | 2020-06-11 22:55 | PN ---
PROGRESS NOTE DATE OF SERVICE: 06/11/2020 REASON FOR FOLLOWUP: Left hand abscess cellulitis and bacteremia. INTERVAL HISTORY: Patient is currently afebrile. The patient is status post drainage of the abscess left hand. Patient's pain is slightly decreased. Denies having any chest pain or shortness of breath, cough. No nausea. No vomiting. No abdominal pain. No diarrhea. PHYSICAL EXAMINATION: Blood pressure is 127/81, pulse of 80, temperature 98. He is 97% on room air. General description: The patient is an elderly male up in the chair in no distress. Respiratory system: Unlabored breathing, clear to auscultation anteriorly. HEART: S1, S2. Regular rate and rhythm. ABDOMEN: Soft. No tenderness. Left hand currently dressed up. No obvious draining on the dressing. LABS: Blood culture with Staph aureus, sensitivities pending. Local wound culture with Staph aureus and gram-negative bacilli. DIAGNOSTIC IMPRESSION AND PLAN: Patient with left hand abscess status post surgical drainage in this patient with recent trigger finger release. Status post drainage of this abscess. The patient is currently covered with vancomycin to continue while waiting for the culture to finalize. He will need a PICC line once blood culture negative. Continue supportive care. MMODL / IJN: [id number] /
--- NOTE | 2020-06-11 23:45 | P.PN ---
Progress Note - Text Progress Note Date: 06/11/20 Presenting complaint: This is a patient with surgery on his left thumb on May 25. He is at progressive pain and swelling in the left hand and forearm. Some limitation of range of motion of the fingers. He had then followed up with orthopedics on June 03 and . He received a steroid injection on the . Doppler ultrasound was negative for DVT. Ultrasound also negative for any solid or cystic mass. On June 10 patient was taken to the operating room and was found to have postoperative infection of the left trigger finger around the flexor tendon of the left thumb. Today-sitting up in bed. Dressing in the left arm. Able to move his fingers some no fever no chills. Tolerating his diet Review of systems: Was done for constitutional, cardiovascular, GI, pulmonary. relevant finding as above Active Medications Acetaminophen (Acetaminophen Tab 325 Mg Tab) 650 mg PO Q6HR PRN PRN Reason: Mild Pain or Fever > 100.5 Hydrocodone Bitart/Acetaminophen (Hydrocodone/Apap 7.5-325mg 1 Each Tab) 1 each PO Q4HR PRN PRN Reason: Moderate Pain Last Admin: 06/11/20 20:18 Dose: 1 each Documented by: Amlodipine Besylate (Amlodipine 5 Mg Tab) 5 mg PO DAILY [facility] Last Admin: 06/11/20 08:23 Dose: 5 mg Documented by: Atorvastatin Calcium (Atorvastatin 40 Mg Tab) 40 mg PO PC-SUPPER [facility] Last Admin: 06/11/20 20:18 Dose: 40 mg Documented by: Hydromorphone HCl (Hydromorphone 1 Mg/Ml 1 Ml Syringe) 1 mg IVP Q3HR PRN PRN Reason: Pain Scale 7 to 10 Last Admin: 06/11/20 21:25 Dose: 1 mg Documented by: Hydromorphone HCl (Hydromorphone 0.5 Mg/0.5 Ml Syringe) 0.5 mg IVP Q3HR PRN PRN Reason: Pain Scale 4 to 6 Last Admin: 06/11/20 08:23 Dose: 0.5 mg Documented by: Hydromorphone HCl (Hydromorphone 0.2 Mg/1 Ml Syringe) 0.2 mg IVP Q3HR PRN PRN Reason: Pain Scale 1 to 3 Ampicillin Sodium/Sulbactam (Sodium 3 gm/ Sodium Chloride) 100 mls @ 200 mls/hr IVPB Q8HR [facility] Last Admin: 06/11/20 14:57 Dose: 200 mls/hr Documented by: Vancomycin HCl 1,500 mg/ (Sodium Chloride) 250 mls @ 125 mls/hr IVPB Q12HR [facility] Stop: 06/12/20 01:00 Last Admin: 06/11/20 21:23 Dose: 125 mls/hr Documented by: Sodium Chloride (Saline 0.9%) 1,000 mls @ 75 mls/hr IV .[id number] [facility] Last Admin: 06/11/20 14:16 Dose: 75 mls/hr Documented by: Sodium Chloride (Saline 0.9%) 1,000 mls @ 70 mls/hr IV .[id number] [facility] Last Admin: 06/11/20 19:25 Dose: Not Given Documented by: Vancomycin HCl 1,750 mg/ (Sodium Chloride) 500 mls @ 167 mls/hr IVPB Q12H [facility] Ketorolac Tromethamine (Ketorolac 15 Mg/Ml 1 Ml Vial) 15 mg IVP Q6HR PRN PRN Reason: Pain Stop: 06/14/20 07:39 Last Admin: 06/11/20 21:24 Dose: 15 mg Documented by: [facility]inop[facility] ([facility] 20 Mg Tab) [facility] Last Admin: 06/11/20 20:18 Dose: 40 mg Documented by: Metoprolol Succinate (Metoprolol Succinate (Er) 25 Mg Tab.Er.24h) [facility] Last Admin: 06/11/20 20:18 Dose: 25 mg Documented by: Naloxone HCl (Naloxone 0.4 Mg/Ml 1 Ml Vial) 0.2 mg IV Q2M PRN PRN Reason: Opioid Reversal Ondansetron HCl (Ondansetron 4 Mg/2 Ml Vial) 4 mg IVP Q8H PRN PRN Reason: Nausea And Vomiting Senna/Docusate Sodium (Sennosides-Docusate Sodium 1 Each Tab) 2 each PO HS PRN PRN Reason: Constipation On examination: VITAL SIGNS: 98, 88, 18, 127/81, 95% room air GENERAL APPEARANCE: BMI 30.8, sitting up in bed, comfortable. HEENT: Normal external appearance of nose and ear. Oral cavity normal EYES: Pupils equal. Conjunctiva normal. NECK: JVD not raised. Mass not palpable. RESPIRATORY: Respiratory effort normal. Lungs clear to auscultation. CARDIOVASCULAR: First and second sounds normal. No edema. EXTREMITY: Left forearm and hand in a dressing. Patient has good capillary refill of the fingers and has good sensation. Some limitation of movement. ABDOMEN: Soft. Liver and spleen not palpable. No tenderness. No mass palpable. PSYCHIATRY: Alert and oriented x3. Mood and affect normal. INVESTIGATIONS, reviewed in the clinical context: White count 15.6 hemoglobin 15.2 potassium 4.5 creatinine 1.06 ESR 50 Blood cultures-presumptive staph aureus -Wound Gram stain-presumptive staph aureus and gram-negative bacilli Assessment: --Acute infection postoperative off the left trigger finger around the flexor tendon of the left thumb, with sepsis with blood cultures and wound cultures growing staph aureus -COPD -Fibromyalgia -Essential hypertension -Hyperlipidemia -COPD in an ex-smoker Plan: Patient's currently and IV Unasyn and medication for pain control. IV fluids. IV vancomycin. Care was discussed with the patient. Spoke to the showcase maker. Antibodies per Dr. Castillo from ID. We will add naproxen finding inflammatory affect.
[2020-06-12] MEDS: NAPROXEN 250 MG TAB PO SCH ×4 (00:05→21:51)
[2020-06-12] MEDS: HYDROcodone/APAP 7.5-325MG 1 EACH TAB PO PRN ×4 (00:10→15:02)
[2020-06-12] MEDS: HYDROmorphone 1 MG/ML 1 ML SYRINGE IVP PRN ×6 (02:57→21:53)
[2020-06-12] MEDS: SODIUM CHLORIDE 0.9% 1,000 ML IV SCH ×3 (02:58→15:02)
[2020-06-12] MEDS: VANCOMYCIN 1,750 MG in SODIUM CHLORIDE 0.9% 500 ML 500 ML IVPB SCH ×2 (07:56→20:09)
[2020-06-12] MEDS: KETOROLAC 15 MG/ML 1 ML VIAL IVP PRN ×2 (07:56→14:42)
[2020-06-12 08:25] LABS: HCT 39.7 % (39.0-53.0); HGB 13.3 gm/dL (13.0-17.5); MCH 31.6 pg (25.0-35.0); MCHC 33.5 g/dL (31.0-37.0); MCV 94.3 fL (80.0-100.0); Mean Platelet Volume 6.8; Platelet Count 329 k/uL (150-450); RBC 4.22 m/uL (4.30-5.90); RDW 14.2 % (11.5-15.5); WBC 12.8 k/uL (3.8-10.6)
[2020-06-12 08:32] LABS: African American GFR (CKD) >90 (>60 ml/min/1.73 sqM); Non-African American GFR(CKD) 81 (>60 ml/min/1.73 sqM)
[2020-06-12] MEDS: amLODIPine 5 MG TAB PO SCH (08:56)
[2020-06-12] MEDS ORDERED: AMMONIUM LACTATE 12% CREAM 140 GM TUBE TOPICAL PRN (10:40)
[2020-06-12] MEDS ORDERED: CYCLOBENZAPRINE 10 MG TAB PO PRN (10:40)
[2020-06-12] MEDS: APIXABAN 5 MG TAB PO SCH ×2 (11:10→21:51)
--- NOTE | 2020-06-12 11:10 | P.PN ---
Subjective Progress Note Date: 06/12/20 This is a 70 year-old male who is status post incision and drainage of the left hand. This is postoperative day #2 and patient is seen and evaluated at bedside today. Patient reports soreness in the left hand today, but states that the swelling is improving. Patient denies any new complaints. Objective - Vital Signs Vital signs: Vital Signs Temp 97.6 F 06/12/20 02:50 Pulse 100 06/12/20 02:50 Resp 16 06/11/20 15:01 BP 165/92 06/12/20 02:50 Pulse Ox 94 L 06/12/20 02:50 Intake & Output 06/11/20 06/12/20 06/12/20 18:59 06:59 18:59 Intake Total 1320 925 Balance 1320 925 Intake: Intake, IV Titration 560 825 Amount Sodium Chloride 0.9% 1, 560 000 ml @ 70 mls/hr IV . [id number] [facility] Rx#:[id number] Sodium Chloride 0.9% 1, 825 000 ml @ 75 mls/hr IV . [id number] [facility] Rx#:[id number] Oral 760 100 Other: Voiding Method Toilet Toilet # Voids 3 2 - Exam On exam patient is resting comfortably in bed in no acute distress. Patient is well-appearing and alert and oriented x3. Surgical dressing is removed. Sutures are intact. There is mild-moderate swelling of the left hand. No active drainage. There is tenderness to palpation over the palmar aspect of the left hand. The left upper extremity is warm and well perfused. Sensation intact. Neurovascular status and circulatory status are intact. - Labs CBC & Chem 7: 06/12/20 07:51 06/12/20 07:51 Labs: Abnormal Lab Results - Last 24 Hours (Table) 06/12/20 Range/Units 07:51 WBC 12.8 H (3.8-10.6) k/uL RBC 4.22 L (4.30-5.90) m/uL Microbiology - Last 24 Hours (Table) 06/11/20 06:33 Blood Culture - Preliminary Blood No Growth after 24 hours 06/09/20 20:07 Blood Culture - Preliminary Blood No Growth after 48 hours 06/10/20 17:37 Gram Stain - Preliminary Finger - Left First Wound Culture - Preliminary Presumptive Staph aureus Gram Neg Bacilli 06/09/20 20:05 Blood Culture Gram Stain - Preliminary Blood Blood Culture - Preliminary Presumptive Staph aureus Assessment and Plan (1) Flexor tenosynovitis of thumb Current Visit: Yes Status: Acute Code(s): M65.9 - SYNOVITIS AND TENOSYNOVITIS, UNSPECIFIED SNOMED Code(s): 533307692 (2) Infection of left hand Current Visit: Yes Status: Acute Code(s): L08.9 - LOCAL INFECTION OF THE SK IN AND SUBCUTANEOUS TISSUE, UNSP SNOMED Code(s): 637952970 (3) Status post trigger finger release Current Visit: Yes Status: Acute Code(s): Z98.890 - OTHER SPECIFIED POSTPROCEDURAL STATES SNOMED Code(s): 889772297 Plan: 1. Continue routine postoperative care and pain control. 2. Rest and elevate the left hand. 3. Daily dressing changes. 4. Cultures are pending. Continue IV antibiotics and wound care per infectious d isease. 5. Appreciate input from internal medicine and infectious disease. 6. Patient will need PICC line placement before discharge. Anticipate discharge home in the next 24-48 hours.
[2020-06-12] MEDS: AMPICILLIN-SULBACTAM 3 GM in SODIUM CHLORIDE 0.9% 100 ML IVPB SCH ×2 (12:47→18:13)
[2020-06-12] MEDS: ATORVASTATIN 40 MG TAB PO SCH (18:12)
[2020-06-12] MEDS: METOPROLOL SUCCINATE (ER) 25 MG TAB.ER.24H PO SCH (18:12)
[2020-06-12] MEDS: lisinopriL 20 MG TAB PO SCH (18:12)
[2020-06-12] MEDS: TAMSULOSIN 0.4 MG CAP.ER.24H PO SCH (18:12)
--- NOTE | 2020-06-12 22:45 | PN ---
PROGRESS NOTE DATE OF SERVICE: 06/12/2020 REASON FOR FOLLOWUP: Left hand abscess with MSSA bacteremia. INTERVAL HISTORY: The patient is currently afebrile. The patient is breathing comfortably. The patient's pain to the left hand has slightly decreased. He denies having any chest pain or shortness of breath or cough. No abdominal pain or diarrhea. PHYSICAL EXAMINATION: Blood pressure is 165/92 with a pulse of 100, temperature 97.6. He is 94% on room air. General description is an elderly male up in the chair in no distress. No tachypnea or accessory muscle of respiration use. RESPIRATORY SYSTEM: Unlabored breathing. Clear to auscultation anteriorly. HEART: S1, S2. Regular rate and rhythm. ABDOMEN: Soft. No tenderness. Left foot is currently dressed. No obvious drainage on the dressing. LABS: Culture has now been finalized with MSSA and Klebsiella Cefazolin. White count down to 12.8. DIAGNOSTIC IMPRESSION AND PLAN: Patient with left hand abscess with secondary cellulitis. Culture has been positive for MSSA and Klebsiella with MSSA bacteremia likely the main pathogen. Antibiotic will be adjusted to cefazolin 2 grams q.8 hours. The patient will need it for at least depending upon the clinical response. Once antibiotic is arranged, he should be able to go home and will monitor his clinical course closely. MMODL / IJN: [id number] /
--- NOTE | 2020-06-12 23:28 | P.PN ---
Progress Note - Text Progress Note Date: 06/12/20 Presenting complaint: This is a patient with surgery on his left thumb on May 25. He is at progressive pain and swelling in the left hand and forearm. Some limitation of range of motion of the fingers. He had then followed up with orthopedics on June 03 and . He received a steroid injection on the . Doppler ultrasound was negative for DVT. Ultrasound also negative for any solid or cystic mass. On June 10 patient was taken to the operating room and was found to have postoperative infection of the left trigger finger around the flexor tendon of the left thumb. Today-dressing and left arm. Pain control. No fever no chills. Oral intake is good. Review of systems: Was done for constitutional, cardiovascular, GI, pulmonary. relevant finding as above Active Medications Acetaminophen (Acetaminophen Tab 325 Mg Tab) 650 mg PO Q6HR PRN PRN Reason: Mild Pain or Fever > 100.5 Hydrocodone Bitart/Acetaminophen (Hydrocodone/Apap 7.5-325mg 1 Each Tab) 1 each PO Q4HR PRN PRN Reason: Moderate Pain Last Admin: 06/12/20 15:02 Dose: 1 each Documented by: Amlodipine Besylate (Amlodipine 5 Mg Tab) 5 mg PO DAILY [facility] Last Admin: 06/12/20 08:56 Dose: 5 mg Documented by: Apixaban (Apixaban 5 Mg Tab) 5 mg PO BID [facility] Last Admin: 06/12/20 21:51 Dose: 5 mg Documented by: Ascorbic Acid (Ascorbic Acid 500 Mg Tab) 1,000 mg PO DAILY [facility] Atorvastatin Calcium (Atorvastatin 40 Mg Tab) 40 mg PO PC-SUPPER [facility] Last Admin: 06/12/20 18:12 Dose: 40 mg Documented by: Cyclobenzaprine HCl (Cyclobenzaprine 10 Mg Tab) 10 mg PO TID PRN PRN Reason: Muscle Spasm Hydromorphone HCl (Hydromorphone 1 Mg/Ml 1 Ml Syringe) 1 mg IVP Q3HR PRN PRN Reason: Pain Scale 7 to 10 Last Admin: 06/12/20 21:53 Dose: 1 mg Documented by: Hydromorphone HCl (Hydromorphone 0.5 Mg/0.5 Ml Syringe) 0.5 mg IVP Q3HR PRN PRN Reason: Pain Scale 4 to 6 Last Admin: 06/11/20 08:23 Dose: 0.5 mg Documented by: Hydromorphone HCl (Hydromorphone 0.2 Mg/1 Ml Syringe) 0.2 mg IVP Q3HR PRN PRN Reason: Pain Scale 1 to 3 Sodium Chloride (Saline 0.9%) 1,000 mls @ 75 mls/hr IV .[id number] [facility] Last Admin: 06/12/20 12:50 Dose: Not Given Documented by: Sodium Chloride (Saline 0.9%) 1,000 mls @ 70 mls/hr IV .[id number] [facility] Last Admin: 06/12/20 15:02 Dose: Not Given Documented by: Cefazolin Sodium 2 gm/ Sodium (Chloride) 50 mls @ 100 mls/hr IVPB Q8HR [facility] Ketorolac Tromethamine (Ketorolac 15 Mg/Ml 1 Ml Vial) 15 mg IVP Q6HR PRN PRN Reason: Pain Stop: 06/14/20 07:39 Last Admin: 06/12/20 14:42 Dose: 15 mg Documented by: Lactic Acid (Ammonium Lactate 12% Cream 140 Gm Tube) 1 applic TOPICAL BID PRN PRN Reason: Dry Skin Lisinopril (Lisinopril 20 Mg Tab) 40 mg PO -SUPPER [facility] Last Admin: 06/12/20 18:12 Dose: 40 mg Documented by: Metoprolol Succinate (Metoprolol Succinate (Er) 25 Mg Tab.Er.24h) 25 mg PO - SUPPER [facility] Last Admin: 06/12/20 18:12 Dose: 25 mg Documented by: Naloxone HCl (Naloxone 0.4 Mg/Ml 1 Ml Vial) 0.2 mg IV Q2M PRN PRN Reason: Opioid Reversal Naproxen (Naproxen 250 Mg Tab) 250 mg PO TID [facility] Last Admin: 06/12/20 21:51 Dose: 250 mg Documented by: Ondansetron HCl (Ondansetron 4 Mg/2 Ml Vial) 4 mg IVP Q8H PRN PRN Reason: Nausea And Vomiting Senna/Docusate Sodium (Sennosides-Docusate Sodium 1 Each Tab) 2 each PO HS PRN PRN Reason: Constipation Tamsulosin HCl (Tamsulosin 0.4 Mg Cap.Er.24h) 0.4 mg PO -SUPPER [facility] Last Admin: 06/12/20 18:12 Dose: 0.4 mg Documented by: On examination: VITAL SIGNS: Afebrile, 100, 1 65/92, 94% room air GENERAL APPEARANCE: Laying in bed, comfortable HEENT: Normal external appearance of nose and ear. Oral cavity normal EYES: Pupils equal. Conjunctiva normal. NECK: JVD not raised. Mass not palpable. RESPIRATORY: Respiratory effort normal. Lungs clear to auscultation. CARDIOVASCULAR: First and second sounds normal. No edema. EXTREMITY: Left forearm and hand in a dressing. Patient has good capillary refill of the fingers and has good sensation. Some limitation of movement. ABDOMEN: Soft. Liver and spleen not palpable. No tenderness. No mass palpable. PSYCHIATRY: Alert and oriented x3. Mood and affect normal. INVESTIGATIONS, reviewed in the clinical context: GEN refill: White count 12.8 hemoglobin 13.3 White count 15.6 hemoglobin 15.2 potassium 4.5 creatinine 1.06 ESR 50 Blood cultures: MSSA -Wound Gram stain-MSSA and Klebsiella oxytoca Assessment: --Acute infection postoperative off the left trigger finger around the flexor tendon of the left thumb, with sepsis with blood cultures and wound cultures MSSA and Klebsiella oxytoca -COPD -Fibromyalgia -Essential hypertension -Hyperlipidemia -COPD in an ex-smoker Plan: I did medical history IV Ancef. Other medications to continue. Discussed with the patient. Antibiotics per ID and transplant case manager coordinating discharge.
[2020-06-13] MEDS: HYDROcodone/APAP 7.5-325MG 1 EACH TAB PO PRN ×5 (00:01→22:07)
[2020-06-13] MEDS: HYDROmorphone 1 MG/ML 1 ML SYRINGE IVP PRN ×2 (01:11→05:39)
[2020-06-13] MEDS: SODIUM CHLORIDE 0.9% 1,000 ML IV SCH ×3 (04:37→16:38)
[2020-06-13] MEDS: KETOROLAC 15 MG/ML 1 ML VIAL IVP PRN ×2 (04:37→20:06)
[2020-06-13 07:45] LABS: African American GFR (CKD) >90 (>60 ml/min/1.73 sqM); Non-African American GFR(CKD) 84 (>60 ml/min/1.73 sqM)
--- NOTE | 2020-06-13 08:27 | P.PN ---
Subjective Progress Note Date: 06/13/20 This is a 70 year-old male who is status post incision and drainage of the left hand. This is postoperative day #3 and patient is seen and evaluated at bedside today. Patient states his pain and swelling are improving. Patient denies any new complaints today. Objective - Vital Signs Vital signs: Vital Signs Temp 97.5 F L 06/13/20 04:30 Pulse 72 06/13/20 04:30 Resp 17 06/13/20 04:30 BP 140/83 06/13/20 04:30 Pulse Ox 96 06/13/20 04:30 Intake & Output 06/12/20 06/13/20 06/13/20 18:59 06:59 18:59 Intake Total 1160 Balance 1160 Intake: Intake, IV Titration 1160 Amount Ampicillin-Sulbactam 3 gm 100 In Sodium Chloride 0.9% 100 ml @ 200 mls/hr IVPB Q8HR [facility] Rx#:[id number] Sodium Chloride 0.9% 1, 560 000 ml @ 70 mls/hr IV . [id number] [facility] Rx#:[id number] Vancomycin 1,750 mg In 500 Sodium Chloride 0.9% 500 ml 500 ml @ 167 mls/hr IVPB Q12H [facility] Rx#: [id number] Other: Voiding Method Toilet # Voids 4 2 # Bowel Movements 1 - Exam On exam patient is resting comfortably in bed in no acute distress. Patient is well-appearing and alert and oriented x3. Surgical dressing is removed. Sutures are intact. There is mild swelling of the left hand. No active drainage. Patient has improvement in range of motion of the fingers of the left hand. The left upper extremity is warm and well perfused. Sensation intact. Neurovascular status and circulatory status are intact. - Labs CBC & Chem 7: 06/12/20 07:51 06/13/20 07:23 Labs: Abnormal Lab Results - Last 24 Hours (Table) 06/12/20 Range/Units 07:51 WBC 12.8 H (3.8-10.6) k/uL RBC 4.22 L (4.30-5.90) m/uL Microbiology - Last 24 Hours (Table) 06/09/20 20:07 Blood Culture - Preliminary Blood No Growth after 72 hours 06/10/20 17:37 Anaerobic Culture - Preliminary Finger - Left First 06/10/20 17:37 Gram Stain - Final Finger - Left First Wound Culture - Final Staphylococcus aureus Klebsiella oxytoca 06/09/20 20:05 Blood Culture Gram Stain - Final Blood Blood Culture - Final Staphylococcus aureus 06/11/20 06:33 Blood Culture - Preliminary Blood No Growth after 24 hours Assessment and Plan (1) Flexor tenosynovitis of thumb Current Visit: Yes Status: Acute Code(s): M65.9 - SYNOVITIS AND TE NOSYNOVITIS, UNSPECIFIED SNOMED Code(s): 373554371 (2) Infection of left hand Current Visit: Yes Status: Acute Code(s): L08.9 - LOCAL INFECTION OF THE SKIN AND SUBCUTANEOUS TISSUE, UNSP SNOMED Code(s): 547841630 (3) Status post trigger finger release Current Visit: Yes Status: Acute Code(s): Z98.890 - OTHER SPECIFIED POSTPROCEDURAL STATES SNOMED Code(s): 001912552 Plan: 1. Continue routine postoperative care and pain control. 2. Rest and elevate the left hand. 3. Daily dressing changes. 4. Cultures are final for MSSA and Klebsiella oxytoca. Continue IV antibiotics and wound care per infectious disease. 5. Appreciate input from internal medicine and infectious disease. 6. Patient will need PICC line placement before discharge. Anticipate discharge after PICC line is placed and in-home IV antibiotics are arranged.
[2020-06-13] MEDS: ASCORBIC ACID 500 MG TAB PO SCH (08:45)
[2020-06-13] MEDS: APIXABAN 5 MG TAB PO SCH (08:45)
[2020-06-13] MEDS: NAPROXEN 250 MG TAB PO SCH ×3 (08:45→22:06)
[2020-06-13] MEDS: amLODIPine 5 MG TAB PO SCH (11:57)
[2020-06-13] MEDS: ATORVASTATIN 40 MG TAB PO SCH (17:09)
[2020-06-13] MEDS: TAMSULOSIN 0.4 MG CAP.ER.24H PO SCH (17:09)
[2020-06-13] MEDS: METOPROLOL SUCCINATE (ER) 25 MG TAB.ER.24H PO SCH (17:09)
[2020-06-13] MEDS: lisinopriL 20 MG TAB PO SCH (17:09)
--- NOTE | 2020-06-13 21:50 | PN ---
PROGRESS NOTE DATE OF SERVICE: 06/13/2020 REASON FOR FOLLOWUP: Left hand abscess and MSSA bacteremia. INTERVAL HISTORY: The patient is currently afebrile. The patient is breathing comfortably. The patient denies having any chest pain or shortness of breath or cough. No nausea, no vomiting. No abdominal pain. Pain to the left hand is currently controlled. PHYSICAL EXAMINATION: Blood pressure 143/87 with a pulse of 93, temperature 98.3. He is 95% on room air. General description is an elderly male lying in bed in no distress. RESPIRATORY SYSTEM: Unlabored breathing. Clear to auscultation anteriorly. HEART: S1, S2. Regular rate and rhythm. ABDOMEN: Soft. No tenderness. Left hand is currently dressed. No obvious drainage on the dressing. LABS: Sed rate 50 with CRP of 150.1. Culture finalized with MSSA and Klebsiella. Blood culture with MSSA only. DIAGNOSTIC IMPRESSION AND PLAN: Patient with left hand abscess with secondary bacteremia. The patient has cleared his bacteremia. Antibiotic in the form of cefazolin 2 grams q.24 for 3-4 weeks. Waiting for insurance authorization before discharge. PICC line will be placed. Continue with supportive care. MMODL / IJN: [id number] /
--- NOTE | 2020-06-13 23:52 | P.PN ---
Progress Note - Text Progress Note Date: 06/13/20 Presenting complaint: This is a patient with surgery on his left thumb on May 25. He is at progressive pain and swelling in the left hand and forearm. Some limitation of range of motion of the fingers. He had then followed up with orthopedics on June 03 and . He received a steroid injection on the . Doppler ultrasound was negative for DVT. Ultrasound also negative for any solid or cystic mass. On June 10 patient was taken to the operating room and was found to have postoperative infection of the left trigger finger around the flexor tendon of the left thumb. Today-pain control. Could not get PICC line because patientreceived eliquis.diet coat Review of systems: Was done for constitutional, cardiovascular, GI, pulmonary. relevant finding as above Active Medications Acetaminophen (Acetaminophen Tab 325 Mg Tab) 650 mg PO Q6HR PRN PRN Reason: Mild Pain or Fever > 100.5 Hydrocodone Bitart/Acetaminophen (Hydrocodone/Apap 7.5-325mg 1 Each Tab) 1 each PO Q4HR PRN PRN Reason: Moderate Pain Last Admin: 06/13/20 22:07 Dose: 1 each Documented by: Amlodipine Besylate (Amlodipine 5 Mg Tab) 5 mg PO DAILY [facility] Last Admin: 06/13/20 11:57 Dose: 5 mg Documented by: Ascorbic Acid (Ascorbic Acid 500 Mg Tab) 1,000 mg PO DAILY [facility] Last Admin: 06/13/20 08:45 Dose: 1,000 mg Documented by: Atorvastatin Calcium (Atorvastatin 40 Mg Tab) 40 mg PO PC-SUPPER [facility] Last Admin: 06/13/20 17:09 Dose: 40 mg Documented by: Cyclobenzaprine HCl (Cyclobenzaprine 10 Mg Tab) 10 mg PO TID PRN PRN Reason: Muscle Spasm Hydromorphone HCl (Hydromorphone 1 Mg/Ml 1 Ml Syringe) 1 mg IVP Q3HR PRN PRN Reason: Pain Scale 7 to 10 Last Admin: 06/13/20 05:39 Dose: 1 mg Documented by: Hydromorphone HCl (Hydromorphone 0.5 Mg/0.5 Ml Syringe) 0.5 mg IVP Q3HR PRN PRN Reason: Pain Scale 4 to 6 Last Admin: 06/11/20 08:23 Dose: 0.5 mg Documented by: Hydromorphone HCl (Hydromorphone 0.2 Mg/1 Ml Syringe) 0.2 mg IVP Q3HR PRN PRN Reason: Pain Scale 1 to 3 Sodium Chloride (Saline 0.9%) 1,000 mls @ 70 mls/hr IV .[id number] [facility] Last Admin: 06/13/20 16:38 Dose: 70 mls/hr Documented by: Cefazolin Sodium 2 gm/ Sodium (Chloride) 50 mls @ 100 mls/hr IVPB Q8HR [facility] Last Admin: 06/13/20 23:15 Dose: 100 mls/hr Documented by: Ketorolac Tromethamine (Ketorolac 15 Mg/Ml 1 Ml Vial) 15 mg IVP Q6HR PRN PRN Reason: Pain Stop: 06/14/20 07:39 Last Admin: 06/13/20 20:06 Dose: 15 mg Documented by: Lactic Acid (Ammonium Lactate 12% Cream 140 Gm Tube) 1 applic TOPICAL BID PRN PRN Reason: Dry Skin [facility] Admin: 06/13/20 17:09 Dose: 40 mg Documented by: Metoprolol Succinate (Metoprolol Succinate (Er) 25 Mg Tab.Er.24h) [facility] Last Admin: 06/13/20 17:09 Dose: 25 mg Documented by: Naloxone HCl (Naloxone 0.4 Mg/Ml 1 Ml Vial) 0.2 mg IV Q2M PRN PRN Reason: Opioid Reversal Naproxen (Naproxen 250 Mg Tab) 250 mg PO TID [facility] Last Admin: 06/13/20 22:06 Dose: 250 mg Documented by: Ondansetron HCl (Ondansetron 4 Mg/2 Ml Vial) 4 mg IVP Q8H PRN PRN Reason: Nausea And Vomiting Senna/Docusate Sodium (Sennosides-Docusate Sodium 1 Each Tab) 2 each PO HS PRN PRN Reason: Constipation Tamsulosin HCl (Tamsulosin 0.4 Mg Cap.Er.24h) 0.4 mg PO -SUPPER [facility] Last Admin: 06/13/20 17:09 Dose: 0.4 mg Documented by: On examination: VITAL SIGNS: 98.3, 93, 20, 143 with 87, 95% room air GENERAL APPEARANCE: sitting up, comfortable HEENT: Normal external appearance of nose and ear. Oral cavity normal EYES: Pupils equal. Conjunctiva normal. NECK: JVD not raised. Mass not palpable. RESPIRATORY: Respiratory effort normal. Lungs clear to auscultation. CARDIOVASCULAR: First and second sounds normal. No edema. EXTREMITY: Left forearm and hand in a dressing. Patient has good capillary refill of the fingers and has good sensation. Some limitation of movement. ABDOMEN: Soft. Liver and spleen not palpable. No tenderness. No mass palpable. PSYCHIATRY: Alert and oriented x3. Mood and affect normal. INVESTIGATIONS, reviewed in the clinical context: White count 12.8 hemoglobin 13.3 White count 15.6 hemoglobin 15.2 potassium 4.5 creatinine 1.06 ESR 50 Blood cultures: MSSA -Wound Gram stain-MSSA and Klebsiella oxytoca Assessment: --Acute infection postoperative off the left trigger finger around the flexor tendon of the left thumb, with sepsis with blood cultures and wound cultures MSSA and Klebsiella oxytoca -COPD -Fibromyalgia -Essential hypertension -Hyperlipidemia -COPD in an ex-smoker Plan: IV Ancef. Other medications to continue. Discussed with the patient. pending PICC line to be done tomorrow
[2020-06-14] MEDS: HYDROcodone/APAP 7.5-325MG 1 EACH TAB PO PRN ×5 (02:05→23:17)
[2020-06-14] MEDS: NAPROXEN 250 MG TAB PO SCH ×3 (08:00→21:04)
[2020-06-14] MEDS: ASCORBIC ACID 500 MG TAB PO SCH (08:01)
[2020-06-14] MEDS: amLODIPine 5 MG TAB PO SCH (08:01)
--- NOTE | 2020-06-14 09:53 | P.PN ---
Subjective Progress Note Date: 06/14/20 This is a 70 year-old male who is status post incision and drainage of the left hand. This is postoperative day #4 and patient is seen and evaluated at bedside today. Patient states that his pain and swelling continue to improve. Patient denies any new complaints today. Objective - Vital Signs Vital signs: Vital Signs Temp 98.0 F 06/14/20 08:11 Pulse 91 06/14/20 08:11 Resp 18 06/14/20 08:11 BP 141/80 06/14/20 08:11 Pulse Ox 96 06/14/20 08:11 Intake & Output 06/13/20 06/14/20 06/14/20 18:59 06:59 18:59 Intake Total 1290 Balance 1290 Intake: IV 610 Sodium Chloride 0.9% 1, 560 000 ml @ 70 mls/hr IV . [id number] [facility] Rx#:[id number] ceFAZolin 2 gm In Sodium 50 Chloride 0.9% 50 ml @ 100 mls/hr IVPB Q8HR [facility] Rx# :[id number] Oral 680 Other: Voiding Method Toilet Toilet # Voids 3 - Exam On exam patient is resting comfortably in bed in no acute distress. Patient is well-appearing and alert and oriented x3. Surgical dressing is removed. Sutures are intact. There is mild swelling of the left hand. No active drainage. Patient has improvement in range of motion of the fingers of the left hand. The left upper extremity is warm and well perfused. Sensation intact. Neurovascular status and circulatory status are intact. - Labs CBC & Chem 7: 06/12/20 07:51 06/13/20 07:23 Labs: Microbiology - Last 24 Hours (Table) 06/11/20 06:33 Blood Culture - Preliminary Blood No Growth after 72 hours 06/09/20 20:07 Blood Culture - Preliminary Blood No Growth after 96 hours Assessment and Plan (1) Flexor tenosynovitis of thumb Current Visit: Yes Status: Acute Code(s): M65.9 - SYNOVITIS AND TENOSYNOVITIS, UNSPECIFIED SNOMED Code(s): 562438654 (2) Infection of left hand Current Visit: Yes Status: Acute Code(s): L08.9 - LOCAL INFECTION OF THE SKIN AND SUBCUTANEOUS TISSUE, UNSP SNOMED Code(s): 580483763 (3) Status post trigger finger release Current Visit: Yes Status: Acute Code(s): Z98.890 - OTHER SPECIFIED POST PROCEDURAL STATES SNOMED Code(s): 961781908 Plan: 1. Continue routine postoperative care and pain control. 2. Rest and elevate the left hand. 3. Daily dressing changes. 4. Cultures are final for MSSA and Klebsiella oxytoca. Continue IV antibiotics and wound care per infectious disease. 5. Appreciate input from internal medicine and infectious disease. 6. Patient will need PICC line placement before discharge. Anticipate discharge after PICC line is placed and in-home IV antibiotics are arranged.
[2020-06-14] MEDS ORDERED: LIDOCAINE 1% INJ 10MG/ML (20 ML MDV) ONE (14:54)
--- NOTE | 2020-06-14 15:08 | PN ---
PROGRESS NOTE DATE OF SERVICE: 06/14/2020 REASON FOR FOLLOWUP: Left hand abscess with MSSA bacteremia. INTERVAL HISTORY: The patient is currently afebrile. Patient is breathing comfortably. Overall pain and discomfort to the left hand is currently controlled. No chest pain, shortness of breath or cough. No abdominal pain or diarrhea. Currently waiting for the PICC line placement and outpatient IV antibiotic arrangement. PHYSICAL EXAMINATION: Blood pressure 141/80 with a pulse of 91, temperature 98. He is 96% on room air. General description is an elderly male up in the chair in no distress. RESPIRATORY SYSTEM: Unlabored breathing, clear to auscultation anteriorly. HEART: S1, S2. Regular rate and rhythm. ABDOMEN: Soft, no tenderness. Left hand is currently dressed. No obvious drainage on the dressing. LABS: Followup blood culture has been negative. DIAGNOSTIC IMPRESSION AND PLAN: Patient with left hand abscess secondary to MSSA with secondary bacteremia. Currently waiting for the outpatient antibiotic arrangement. Plan is for cefazolin 2 grams q.8 hours for total of 2-3 weeks and close outpatient followup. MMODL / IJN: [id number] /
[2020-06-14] MEDS ORDERED: LIDOCAINE 1% INJ 10MG/ML (20 ML MDV) SQ ONE (15:11)
--- NOTE | 2020-06-14 15:37 | IR ---
PICC LINE PLACEMENT: HISTORY: Infection requiring long-term antibiotic therapy PROCEDURE: Ultrasound and fluoroscopic guidance of PICC line placement. COMPLICATIONS: None ANESTHESIA: 1. 1% Lidocaine locally. FINDINGS/TECHNIQUE: The procedure was explained to the patient. The risks, complications, benefits and alternatives were discussed and any questions were answered. Informed consent was obtained. The patient was placed supine on the fluoroscopic table and prepped and draped in the usual sterile fash ion. Utilizing a 21 gauge needle and sonographic and fluoroscopic guidance, access in the right cep halic vein was achieved and there is placement of a 0.018 guidewire. The vein is patent. A 4-F duque th was placed over the guidewire. The guidewire and dilator were removed and a 4-F. PICC line was pl aced through the sheath with the tip at the level of the SVC. The sheath was removed, the catheter w as flushed and sutured into position. The patient was stable throughout the procedure and remained s table upon discharge from the Department of Radiology. The vein puncture was patent under ultrasound. A avilez scale image was obtained to document patency of the vein punctured. All elements of the maximal barrier technique were utilized. FLUOROSCOPY TIME: 0.4 minutes and 1 images submitted IMPRESSION: Successful PICC line placement under ultrasound and fluoroscopic guidance.
--- NOTE | 2020-06-14 15:40 | P.DS ---
Providers Date of admission: 06/11/20 11:17 Expected date of discharge: 06/14/20 Attending physician: Sreekanth Whitehead Consults: 06/09/20 21:04 Consult Physician Routine Consulting Provider: Zachary Lopez Consult Reason/Comments: Left hand and forearm infection, medical management Do you want consulting provider notified?: Yes 06/10/20 16:20 Consult Physician Routine Consulting Provider: Judie Casas Consult Reason/Comments: left hand cellulitis Do you want consulting provider notified?: Already Contacted 06/10/20 18:17 Consult Physician Routine Consulting Provider: Judie Casas Consult Reason/Comments: infection left hand, s/p trigger finger release Do you want consulting provider notified?: Yes Primary care physician: Prashant Baez - Discharge Diagnosis(es) (1) Flexor tenosynovitis of thumb Current Visit: Yes Status: Acute (2) Infection of left hand Current Visit: Yes Status: Acute (3) Status post trigger finger release Current Visit: Yes Status: Acute Hospital Course: This is a 70-year-old male who was admitted on 06/09/2019 for infection of the left hand status post trigger thumb release on 05/25/2020. Patient underwent incision and drainage of the left hand on 06/10/2019. Cultures are final for MSSA and Klebsiella oxytoca. IV antibiotics are being managed by infectious disease. Patient received a PICC line before discharge. On day of discharge labs and vital signs are stable. White blood cell count continues to trend down. Patient is afebrile. On exam patient is resting comfortably in bed in no acute distress. Patient is well-appearing and alert and oriented x3. Surgical dressing is removed. Sutures are intact. There is mild swelling of the left hand. No active drainage. Patient has improvement in range of motion of the fingers of the left hand. The left upper extremity is warm and well perfused. Sensation intact. Neurovascular status and circulatory status are intact. Patient is in good condition for discharge home. Please see med rec for an accurate list of home medications. Patient Condition at Discharge: Stable Plan - Discharge Summary Discharge Rx Participant: No New Discharge Prescriptions: New Atorvastatin [Lipitor] 40 mg PO PC-SUPPER #30 tab Naproxen [Naprosyn] 250 mg PO TID #21 tab amLODIPine [Norvasc] 5 mg PO DAILY #30 tab Continue lisinopriL 40 mg PO PC-SUPPER Tamsulosin [Flomax] 0.4 mg PO PC-SUPPER Metoprolol Succinate [Toprol XL] 25 mg PO PC-SUPPER Tiotropium Br/Olodaterol HCl [Stiolto Respimat Inhal [place]] 2 spray INHALATION RT-DAILY Lidocaine 4% Cream [Lmx 4] 1 applic TOPICAL DAILY Cyclobenzaprine [Flexeril] 10 mg PO TID PRN PRN Reason: Muscle Spasm Ascorbic Acid [Vitamin C] 1,000 mg PO DAILY Ammonium Lactate Cream [Lac-Hydrin 12% Cream] 1 applic TOPICAL BID PRN PRN Reason: Dry Skin predniSONE 10 mg PO DAILY Apixaban [Eliquis] 5 mg PO BID Discontinued diphenhydrAMINE [Benadryl] 50 mg PO DAILY PRN PRN Reason: Itching Atorvastatin Calcium [Lipitor] 40 mg PO PC-SUPPER amLODIPine [Norvasc] 10 mg PO DAILY No Action HYDROcodone/APAP 7.5-325MG [[place] 7.5-325] 1 tab PO BID PRN PRN Reason: Pain Discharge Medication List lisinopriL 40 mg PO PC-SUPPER 01/11/15 [History] HYDROcodone/APAP 7.5-325MG [[place] 7.5-325] 1 tab PO BID PRN 03/14/15 [History] Metoprolol Succinate [Toprol XL] 25 mg PO PC-SUPPER 05/09/20 [History] Tamsulosin [Flomax] 0.4 mg PO PC-SUPPER 05/09/20 [History] Ammonium Lactate Cream [Lac-Hydrin 12% Cream] 1 applic TOPICAL BID PRN 06/09/20 [History] Ascorbic Acid [Vitamin C] 1,000 mg PO DAILY 06/09/20 [History] Cyclobenzaprine [Flexeril] 10 mg PO TID PRN 06/09/20 [History] Lidocaine 4% Cream [Lmx 4] 1 applic TOPICAL DAILY 06/09/20 [History] Tiotropium Br/Olodaterol HCl [Stiolto Respimat Inhal [place]] 2 spray INHALATION RT-DAILY 06/09/20 [History] predniSONE 10 mg PO DAILY 06/09/20 [History] Apixaban [Eliquis] 5 mg PO BID 06/12/20 [History] Atorvastatin [Lipitor] 40 mg PO PC-SUPPER #30 tab 06/14/20 [Rx] Naproxen [Naprosyn] 250 mg PO TID #21 tab 06/14/20 [Rx] amLODIPine [Norvasc] 5 mg PO DAILY #30 tab 06/14/20 [Rx] Follow up Appointment(s)/Referral(s): [facility], [NON-STAFF] - Prashant Baez DO [Primary Care Provider] - 1-2 days Christian Mckenzie DO [Doctor of Osteopathic Medicine] - 1 Week Judie Casas MD [STAFF PHYSICIAN] - 2 Weeks Patient Instructions/Handouts: Peripherally Inserted Central Catheters and Midline Catheters (DC) Activity/Diet/Wound Care/Special Instructions: Maintain a clean and dry bandage. Do not soak the left hand. Keep the hand dry and covered when showering. Rest and elevate for swelling. Please follow up with [facility] and call with any questions or concerns, . cbc/bmp - 7 days Discharge Disposition: HOME WITH HOME HEALTH SERVICES
[2020-06-14] MEDS: ATORVASTATIN 40 MG TAB PO SCH (18:35)
[2020-06-14] MEDS: METOPROLOL SUCCINATE (ER) 25 MG TAB.ER.24H PO SCH (18:35)
[2020-06-14] MEDS: TAMSULOSIN 0.4 MG CAP.ER.24H PO SCH (18:35)
[2020-06-14] MEDS: lisinopriL 20 MG TAB PO SCH (18:35)
--- NOTE | 2020-06-14 22:18 | P.PN ---
Progress Note - Text Progress Note Date: 06/14/20 Presenting complaint: This is a patient with surgery on his left thumb on May 25. He is at progressive pain and swelling in the left hand and forearm. Some limitation of range of motion of the fingers. He had then followed up with orthopedics on June 03 and . He received a steroid injection on the . Doppler ultrasound was negative for DVT. Ultrasound also negative for any solid or cystic mass. On June 10 patient was taken to the operating room and was found to have postoperative infection of the left trigger finger around the flexor tendon of the left thumb. Today-stable. Getting a PICC line this afternoon. No new issues. Review of systems: Was done for constitutional, cardiovascular, GI, pulmonary. relevant finding as above Active Medications Acetaminophen (Acetaminophen Tab 325 Mg Tab) 650 mg PO Q6HR PRN PRN Reason: Mild Pain or Fever > 100.5 Hydrocodone Bitart/Acetaminophen (Hydrocodone/Apap 7.5-325mg 1 Each Tab) 1 each PO Q4HR PRN PRN Reason: Moderate Pain Last Admin: 06/14/20 18:35 Dose: 1 each Documented by: Amlodipine Besylate (Amlodipine 5 Mg Tab) 5 mg PO DAILY [facility] Last Admin: 06/14/20 08:01 Dose: 5 mg Documented by: Ascorbic Acid (Ascorbic Acid 500 Mg Tab) 1,000 mg PO DAILY [facility] Last Admin: 06/14/20 08:01 Dose: 1,000 mg Documented by: Atorvastatin Calcium (Atorvastatin 40 Mg Tab) 40 mg PO PC-SUPPER [facility] Last Admin: 06/14/20 18:35 Dose: 40 mg Documented by: Cyclobenzaprine HCl (Cyclobenzaprine 10 Mg Tab) 10 mg PO TID PRN PRN Reason: Muscle Spasm Hydromorphone HCl (Hydromorphone 1 Mg/Ml 1 Ml Syringe) 1 mg IVP Q3HR PRN PRN Reason: Pain Scale 7 to 10 Last Admin: 06/13/20 05:39 Dose: 1 mg Documented by: Hydromorphone HCl (Hydromorphone 0.5 Mg/0.5 Ml Syringe) 0.5 mg IVP Q3HR PRN PRN Reason: Pain Scale 4 to 6 Last Admin: 06/11/20 08:23 Dose: 0.5 mg Documented by: Hydromorphone HCl (Hydromorphone 0.2 Mg/1 Ml Syringe) 0.2 mg IVP Q3HR PRN PRN Reason: Pain Scale 1 to 3 Cefazolin Sodium 2 gm/ Sodium (Chloride) 50 mls @ 100 mls/hr IVPB Q8HR [facility] Last Admin: 06/14/20 16:41 Dose: 100 mls/hr Documented by: Lactic Acid (Ammonium Lactate 12% Cream 140 Gm Tube) 1 applic TOPICAL BID PRN PRN Reason: Dry Skin [facility]inop[facility] ([facility] 20 Mg Tab) [facility] Last Admin: 06/14/20 18:35 Dose: 40 mg Documented by: Metoprolol Succinate (Metoprolol Succinate (Er) 25 Mg Tab.Er.24h) [facility] Last Admin: 06/14/20 18:35 Dose: 25 mg Documented by: Naloxone HCl (Naloxone 0.4 Mg/Ml 1 Ml Vial) 0.2 mg IV Q2M PRN PRN Reason: Opioid Reversal Naproxen (Naproxen 250 Mg Tab) 250 mg PO TID [facility] Last Admin: 06/14/20 21:04 Dose: 250 mg Documented by: Ondansetron HCl (Ondansetron 4 Mg/2 Ml Vial) 4 mg IVP Q8H PRN PRN Reason: Nausea And Vomiting Senna/Docusate Sodium (Sennosides-Docusate Sodium 1 Each Tab) 2 each PO HS PRN PRN Reason: Constipation Tamsulosin HCl (Tamsulosin 0.4 Mg Cap.Er.24h) [facility] Last Admin: 06/14/20 18:35 Dose: 0.4 mg Documented by: On examination: VITAL SIGNS: 98.1, 18, 91, 163/85, 96% room air GENERAL APPEARANCE: sitting up, comfortable HEENT: Normal external appearance of nose and ear. Oral cavity normal EYES: Pupils equal. Conjunctiva normal. NECK: JVD not raised. Mass not palpable. RESPIRATORY: Respiratory effort normal. Lungs clear to auscultation. CARDIOVASCULAR: First and second sounds normal. No edema. EXTREMITY: Left forearm and hand in a dressing. Patient has good capillary refill of the fingers and has good sensation. Some limitation of movement. ABDOMEN: Soft. Liver and spleen not palpable. No tenderness. No mass palpable. PSYCHIATRY: Alert and oriented x3. Mood and affect normal. INVESTIGATIONS, reviewed in the clinical context: White count 12.8 hemoglobin 13.3 White count 15.6 hemoglobin 15.2 potassium 4.5 creatinine 1.06 ESR 50 Blood cultures: MSSA -Wound Gram stain-MSSA and Klebsiella oxytoca Assessment: --Acute infection postoperative off the left trigger finger around the flexor tendon of the left thumb, with sepsis with blood cultures and wound cultures MSSA and Klebsiella oxytoca -COPD -Fibromyalgia -Essential hypertension -Hyperlipidemia -COPD in an ex-smoker Plan: IV Ancef. PICC line placed today. Other medications to continue.
[2020-06-15] MEDS: HYDROcodone/APAP 7.5-325MG 1 EACH TAB PO PRN (04:38)
[2020-06-15 08:12] VITALS: BP 112/74; PULSE 93; RESP 16; TEMP 98
[2020-06-15] MEDS: NAPROXEN 250 MG TAB PO SCH (08:48)
[2020-06-15] MEDS: ASCORBIC ACID 500 MG TAB PO SCH (08:49)
[2020-06-15] MEDS: amLODIPine 5 MG TAB PO SCH (08:51)
[2020-06-15] MEDS ORDERED: APIXABAN 5 MG TAB PO SCH (09:00)
== END 2020-06-15 10:45 | disposition home health service (06) | DRG 862 ==
LOC: EC 19:27 → 4SSUR 21:02 → 1SOBS 21:32 → OBSVTOIN 06-11 11:17
PROVIDERS: ADMIT Hospitalist; ATTEND Hospitalist
PROC: 0X9K0ZX Drainage of Left Hand, Open Approach, Diagnostic (ICD-10-PCS; principal; 2020-06-10 14:30)
PROC: 02HV33Z Insertion of Infusion Device into Superior Vena Cava, Percutaneous Approach (ICD-10-PCS; 2020-06-14)
DX: T81.40XA Infection following a procedure, unspecified, initial encounter (principal); A41.01 Sepsis due to Methicillin susceptible Staphylococcus aureus; A41.59 Other Gram-negative sepsis; L02.512 Cutaneous abscess of left hand; D84.9 Immunodeficiency, unspecified; L03.114 Cellulitis of left upper limb; E78.5 Hyperlipidemia, unspecified; I11.9 Hypertensive heart disease without heart failure; I48.0 Paroxysmal atrial fibrillation; J44.9 Chronic obstructive pulmonary disease, unspecified; M79.7 Fibromyalgia; Z90.81 Acquired absence of spleen; Z87.891 Personal history of nicotine dependence; Z85.72 Personal history of non-Hodgkin lymphomas; Z79.899 Other long term (current) drug therapy; Z79.52 Long term (current) use of systemic steroids; Z98.42 Cataract extraction status, left eye; Z98.41 Cataract extraction status, right eye; Z80.0 Family history of malignant neoplasm of digestive organs; Z80.49 Family history of malignant neoplasm of other genital organs; M19.90 Unspecified osteoarthritis, unspecified site; M65.142 Other infective (teno)synovitis, left hand; M54.9 Dorsalgia, unspecified; G89.29 Other chronic pain; Z92.21 Personal history of antineoplastic chemotherapy; Z92.3 Personal history of irradiation
CPT/HCPCS: 36415; 36573; 80053; 80202; 82565; 83605; 83735; 85025; 85027; 85652; 86140; 87040; 87070; 87075; 87077; 87186; 87205; 96374; 99285

== ENCOUNTER 2020-06-23 10:22 | Emergency (ER) | payer MEDICARE ==
[2020-06-23 10:29] VITALS: BP 145/79; PULSE 97; RESP 18; TEMP 99.2
[2020-06-23] MEDS ORDERED: FAMOTIDINE 20 MG/2 ML VIAL IV STA (10:39)
[2020-06-23] MEDS ORDERED: methylPREDNISolone SOD SUCCI 125 MG/2 ML VIAL IV STA (10:39)
[2020-06-23] MEDS ORDERED: SODIUM CHLORIDE 0.9% 500 ML 500 ML IV ONE (10:39)
[2020-06-23] MEDS ORDERED: diphenhydrAMINE 50 MG/ML 1 ML VIAL IVP STA (10:39)
[2020-06-23] MEDS ORDERED: SULFAMETH-TMP DS STARTER PACK 2 TAB BTL PO STA (10:43)
--- NOTE | 2020-06-23 10:46 | ED ---
Allergic Reaction HPI - General Chief complaint: Allergic Reaction Stated complaint: Allergic Reaction Time Seen by Provider: 06/23/20 10:32 Source: patient Mode of arrival: ambulatory Limitations: no limitations - History of Present Illness Initial Comments: 70yo male presenting today for cc of possible allergic reaction. Pt states he had surgery on his left hand secondary to a staph infection (on chart review cultures grew klebsiella and MSSA. Patient states he was in the hospital until the 09-10. He states he was discharged with picc line and home care. he was receiving IVBP of cefazolin q8 hours. He states the past day he began developing rash that began to worsen after infusion, itching located on the neck, chest, back, and arms/hands. pt states it is red, itches, there is one lesion that looks like blister near hand. he states other than this recent reaction, things were "going good". He states that he feels his hand is improving daily but still slightly swollen. denies increased swelling, drainage or new redness. patient denies fevers, oral lesions, nausea, vomiting, wheezing, cough, diarrhea, abdominal pain. pt denies difficulty breathing. on arrival patient appears well nontoxic in no acute distress. - Related Data Home Medications Medication Instructions Recorded Confirmed lisinopriL 40 mg PO PC-SUPPER 01/11/15 06/09/20 HYDROcodone/APAP 7.5-325MG [[place] 1 tab PO BID PRN 03/14/15 06/09/20 7.5-325] Metoprolol Succinate [Toprol XL] 25 mg PO PC-SUPPER 05/09/20 06/09/20 Tamsulosin [Flomax] 0.4 mg PO PC-SUPPER 05/09/20 06/09/20 Ammonium Lactate Cream [Lac-Hydrin 1 applic TOPICAL BID PRN 06/09/20 06/09/20 12% Cream] Ascorbic Acid [Vitamin C] 1,000 mg PO DAILY 06/09/20 06/09/20 Cyclobenzaprine [Flexeril] 10 mg PO TID PRN 06/09/20 06/09/20 Lidocaine 4% Cream [Lmx 4] 1 applic TOPICAL DAILY 06/09/20 06/09/20 Tiotropium Br/Olodaterol HCl 2 spray INHALATION RT-DAILY 01/02/21 01/02/21 [Stiolto Respimat Inhal [place]] predniSONE 10 mg PO DAILY 06/09/20 06/09/20 Apixaban [Eliquis] 5 mg PO BID 06/12/20 06/12/20 Previous Rx's Medication Instructions Recorded Atorvastatin [Lipitor] 40 mg PO PC-SUPPER #30 tab 06/14/20 Naproxen [Naprosyn] 250 mg PO TID #21 tab 06/14/20 amLODIPine [Norvasc] 5 mg PO DAILY #30 tab 06/14/20 Sulfamethox-Tmp 800-160Mg [Bactrim 1 tab PO Q12HR 10 Days #20 tab 06/23/20 DS 800-160 mg] predniSONE 50 mg PO DAILY 3 Days #3 tab 06/23/20 Allergies Allergy/AdvReac Type Severity Reaction Status Date / Time cefazolin Allergy Rash/Hives Verified 06/23/20 10:29 Review of Systems ROS Statement: Those systems with pertinent positive or pertinent negative responses have been documented in the HPI. ROS Other: All systems not noted in ROS Statement are negative. 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 cluster migraines, eczema, History of Any Multi-Drug Resistant Organisms: None Reported Past Surgical History: Back Surgery, Heart Catheterization, Orthopedic Surgery Additional Past Surgical History / Comment(s): lumbar laminectomy with dec ompression L2-3. lumbar surgery x2, left carpal tunnel, spleenectomy, [place] cataracts, left thumb trigger finger Past Anesthesia/Blood Transfusion Reactions: No Reported Reaction Past Psychological History: No Psychological Hx Reported Smoking Status: Former smoker Past Alcohol Use History: Occasional Past Drug Use History: None Reported - Past Family History Brother(s) Family Medical History: Cancer Additional Family Medical History / Comment(s): colon Sister(s) Family Medical History: Cancer Additional Family Medical History / Comment(s): uterine General Exam - General Exam Comments Initial Comments: General: The patient is awake and alert, in no distress Eye: Pupils are equal, round and reactive to light, extra-ocular movements are intact. No nystagmus. There is normal conjunctiva bilaterally. No signs of icterus. Ears, nose, mouth and throat: There are moist mucous membranes and no oral lesions. No lip or tongue swelling. tolerating oral secretions. Neck: The neck is supple, there is no tenderness or JVD. Cardiovascular: There is a regular rate and rhythm. No murmur, rub or gallop is appreciated. Respiratory: Lungs are clear to auscultation, respirations are non-labored, breath sounds are equal. No wheezes, stridor, rales, or rhonchi. Gastrointestinal: Soft, non-distended, non-tender abdomen without masses or organomegaly noted. There is no rebound or guarding present. Musculoskeletal: Normal ROM, no tenderness. Strength 5/5. Sensation intact. Radial pulses equal bilaterally 2+. Neurological: A&O x 3. CN II-XII intact grossly, There are no obvious motor or sensory deficits. Coordination appears grossly intact. Speech is normal. Skin: Skin is warm and dry and no rashes. Slightly raised red lesions (that patient states itches) nonspecific pattern over neck, chest back, UE and hands. One small vesicular appearing lesion on left hand. no wound drainge/redness. no tenderness to touch. Psychiatric: Cooperative, appropriate mood & affect, normal judgment. Limitations: no limitations Course Vital Signs 06/23/20 10:27 Temperature 99.2 F Pulse Rate 97 Respiratory 18 Rate Blood Pressure 145/79 O2 Sat by Pulse 94 L Oximetry Medical Decision Making - Medical Decision Making CBC trending down. obtained per patient request because he is to have labs drawn thursday. pt denies increased wound site redness/pain/swelling. states he felt fine until this "allergic reaction" states that he has rash began yesterday but increased after this morning abx infusion, itching, no oral lesions. no wheezing, dyspnea. one possible lesion that appears vesicular otherwise wheels. pt appear in no distress. i discussed further infection care with attending we reviewed her cultures with sensitivities it appears that both bacteria were sen sitive to bactrim. pt will be discharged on bactrim q12h with close infectious disease follow-up and return for oral involvement-worsening rash, difficulty breathing, fevers, increased number of vesicular lesions. pt agreeable to this care plan as well as discharge. attending agreeable to this care plan. - Lab Data Result diagrams: 06/23/20 11:04 06/23/20 11:04 Lab Results 06/23/20 06/23/20 Range/Units 11:04 11:04 WBC 14.2 H (3.8-10.6) k/uL RBC 4.57 (4.30-5.90) m/uL Hgb 14.3 (13.0-17.5) gm/dL Hct 42.2 (39.0-53.0) % MCV 92.4 (80.0-100.0) fL MCH 31.3 (25.0-35.0) pg MCHC 33.9 (31.0-37.0) g/dL RDW 14.2 (11.5-15.5) % Plt Count 356 (150-450) k/uL MPV 7.3 Neutrophils % 77 % Lymphocytes % 5 % Monocytes % 8 % Eosinophils % 7 % Basophils % 2 % Neutrophils # 10.9 H (1.3-7.7) k/uL Lymphocytes # 0.7 L (1.0-4.8) k/uL Monocytes # 1.2 H (0-1.0) k/uL Eosinophils # 0.9 H (0-0.7) k/uL Basophils # 0.3 H (0-0.2) k/uL ESR Cancelled Sodium 139 (137-145) mmol/L Potassium 4.5 (3.5-5.1) mmol/L Chloride 106 (98-107) mmol/L Carbon Dioxide 25 (22-30) mmol/L Anion Gap 8 mmol/L BUN 39 H (9-20) mg/dL Creatinine 1.36 H (0.66-1.25) mg/dL Est GFR (CKD-EPI)AfAm 61 (>60 ml/min/1.73 sqM) Est GFR (CKD-EPI)NonAf 53 (>60 ml/min/1.73 sqM) Glucose 109 H (74-99) mg/dL Calcium 8.8 (8.4-10.2) mg/dL Total Bilirubin 0.3 (0.2-1.3) mg/dL AST 25 (17-59) U/L ALT 10 (4-49) U/L Alkaline Phosphatase 62 (38-126) U/L C-Reactive Protein 24.9 H (<10.0) mg/L Total Protein 6.4 (6.3-8.2) g/dL Albumin 3.6 (3.5-5.0) g/dL Disposition Clinical Impression: Drug reaction, Drug allergy, antibiotic, Rash Disposition: HOME SELF-CARE Condition: Good Instructions (If sedation given, give patient instructions): Anaphylaxis (ED), Antibiotic Medication Allergy (ED) Additional Instructions: Please use medication as discussed. Please follow-up with infectious disease next week, call Thursday to discuss todays visit and schedule appropriate follow- up. Please return to emergency room if the symptoms increase or worsen or for any other concerns. Prescriptions: Sulfamethox-Tmp 800-160Mg [Bactrim DS 800-160 mg] 1 tab PO Q12HR 10 Days #20 tab predniSONE 50 mg PO DAILY 3 Days #3 tab Is patient prescribed a controlled substance at d/c from ED?: No Referrals: Prashant Baez DO [Primary Care Provider] - 1-2 days Time of Disposition: 10:45
[2020-06-23 11:13] LABS: Basophils # (A) 0.3 k/uL (0-0.2); Basophils % (A) 2 %; Eosinophils # (A) 0.9 k/uL (0-0.7); Eosinophils % (A) 7 %; HCT 42.2 % (39.0-53.0); HGB 14.3 gm/dL (13.0-17.5); Lymphocytes # (A) 0.7 k/uL (1.0-4.8); Lymphocytes % (A) 5 %; MCH 31.3 pg (25.0-35.0); MCHC 33.9 g/dL (31.0-37.0); MCV 92.4 fL (80.0-100.0); Mean Platelet Volume 7.3; Monocytes # (A) 1.2 k/uL (0-1.0); Monocytes % (A) 8 %; Neutrophils # (A) 10.9 k/uL (1.3-7.7); Neutrophils % (A) 77 %; Platelet Count 356 k/uL (150-450); RBC 4.57 m/uL (4.30-5.90); RDW 14.2 % (11.5-15.5); WBC 14.2 k/uL (3.8-10.6)
[2020-06-23 11:25] LABS: Albumin 3.6 g/dL (3.5-5.0); C Reactive Protein 24.9 mg/L (<10.0); Calcium 8.8 mg/dL (8.4-10.2); Potassium 4.5 mmol/L (3.5-5.1); Total Bilirubin 0.3 mg/dL (0.2-1.3); Total Protein 6.4 g/dL (6.3-8.2)
== END 2020-06-23 11:40 | disposition home or self-care (01) ==
LOC: EC 10:22
DX: L27.1 Localized skin eruption due to drugs and medicaments taken internally (principal); T36.95XA Adverse effect of unspecified systemic antibiotic, initial encounter; J44.9 Chronic obstructive pulmonary disease, unspecified; I48.91 Unspecified atrial fibrillation; E78.5 Hyperlipidemia, unspecified; I10 Essential (primary) hypertension; Z79.01 Long term (current) use of anticoagulants; Z79.52 Long term (current) use of systemic steroids; Z79.51 Long term (current) use of inhaled steroids; Z79.899 Other long term (current) drug therapy; Z87.891 Personal history of nicotine dependence; Z95.5 Presence of coronary angioplasty implant and graft; Z98.42 Cataract extraction status, left eye; Z98.41 Cataract extraction status, right eye; Z90.81 Acquired absence of spleen; Z85.72 Personal history of non-Hodgkin lymphomas; Z92.21 Personal history of antineoplastic chemotherapy; Z92.3 Personal history of irradiation; Z88.1 Allergy status to other antibiotic agents; Z80.0 Family history of malignant neoplasm of digestive organs; Z80.49 Family history of malignant neoplasm of other genital organs
CPT/HCPCS: 36415; 80053; 85025; 86140; 99283; 96374; 96375 ×2; 96361; J1200; J2930

== ENCOUNTER → 2020-08-14 | Outpatient (CLI) | payer MEDICARE ==
--- NOTE | 2020-08-14 09:47 | CT ---
EXAMINATION TYPE: CT chest wo con DATE OF EXAM: 08/14/2020 COMPARISON: Chest x-ray 11/18/2019 HISTORY: Shortness of breath CT DLP: 982.0 mGycm. Automated Exposure Control for Dose Reduction was Utilized. TECHNIQUE: CT scan of the thorax is performed without IV contrast. Limited scanning was performed in the prone and supine positions. FINDINGS: LUNGS: The lungs are remarkable for interstitial lung disease, there are interlobular septal lines no christiane in the upper and lower lobes. There is some pleural thickening present bilaterally. There is no pleural effusion or pneumothorax seen. The tracheobronchial tree is patent. MEDIASTINUM: Lack of IV contrast is noted to limit evaluation for mediastinal and especially hilar ad enopathy. There are no definitive greater than 1 cm hilar or mediastinal lymph nodes. No cardiomega ly or pericardial effusion is seen. There are coronary artery calcifications which are moderate. OTHER: Ascending aorta measures 4 cm, there are atheromatous changes in the thoracic aorta. Surgical clips present along the anterior abdominal wall. At the dome of the liver there is a hypodense focus measuring 2.2 cm which is likely represents a cyst IMPRESSION: Findings may be due to pulmonary fibrosis. Ascending aortic aneurysm. Coronary artery dis ease.
== END ==
LOC: RADCTMAIN 08:02
PROVIDERS: ATTEND Internal Medicine Critical Care Medicine
DX: I71.2 Thoracic aortic aneurysm, without rupture (principal); I25.10 Atherosclerotic heart disease of native coronary artery without angina pectoris
CPT/HCPCS: 71250

== ENCOUNTER → 2020-10-22 | Outpatient (CLI) | payer MEDICARE ==
[2020-10-22 09:30] LABS: Basophils # (A) 0.1 k/uL (0-0.2); Basophils % (A) 1 %; Eosinophils # (A) 0.4 k/uL (0-0.7); Eosinophils % (A) 4 %; HCT 45.3 % (39.0-53.0); HGB 15.3 gm/dL (13.0-17.5); Lymphocytes # (A) 1.5 k/uL (1.0-4.8); Lymphocytes % (A) 14 %; MCH 31.7 pg (25.0-35.0); MCHC 33.8 g/dL (31.0-37.0); MCV 93.5 fL (80.0-100.0); Monocytes # (A) 1.3 k/uL (0-1.0); Monocytes % (A) 12 %; Neutrophils # (A) 7.1 k/uL (1.3-7.7); Neutrophils % (A) 67 %; Platelet Count 267 k/uL (150-450); RBC 4.84 m/uL (4.30-5.90); RDW 14.5 % (11.5-15.5); WBC 10.6 k/uL (3.8-10.6)
[2020-10-22 09:38] LABS: Potassium 4.7 mmol/L (3.5-5.1)
[2020-10-22 09:47] LABS: Partial Thromboplastin Time 25.1 sec (22.0-30.0); Prothrombin Time 10.4 sec (9.0-12.0)
== END | disposition home or self-care (01) ==
LOC: LABPAT 08:03
PROVIDERS: ATTEND Surgery
DX: Z01.812 Encounter for preprocedural laboratory examination (principal); R91.1 Solitary pulmonary nodule
CPT/HCPCS: 36415; 80051; 82565; 82947; 84520; 85025; 85610; 85730

== ENCOUNTER 2020-10-26 06:49 | Inpatient (IN) | payer MEDICARE ==
[2020-10-22 16:11] VITALS: BMI 30.8
[~2020-10-26 06:49] MED LIST changes: -ALPRAZolam 0.25 MG TAB PO PRN; -ALPRAZolam 0.5 MG TAB PO PRN; -ASPIRIN 325 MG TAB PO STA; -ATORVASTATIN 80 MG TAB PO STA; +CLINDAMYCIN 900 MG in DEXTROSE 5% IN WATER 50 ML IVPB PRN; +DEXAMETHASONE SOD PHOSPHATE 4 MG/ML 1 ML VIAL IV ONE; +LACTATED RINGERS 1,000 ML IV SCH; +MIDAZOLAM 2 MG/2 ML VIAL IV PRN; -NITROGLYCERIN SL TABS 0.4 MG TAB SUBLINGUAL PRN; +ONDANSETRON 4 MG/2 ML VIAL IVP ONE; -SODIUM CHLORIDE 0.9% 1,000 ML in EMPTY BAG 1 BAG IV ONE
[2020-10-26] MEDS ORDERED: MIDAZOLAM 2 MG/2 ML VIAL IV ONE ×2 (08:08→08:11)
[2020-10-26] MEDS ORDERED: PROPOFOL 10 MG/ML 20 ML VIAL IV ONE (08:35)
[2020-10-26] MEDS ORDERED: LIDOCAINE 1% INJ 10MG/ML (20 ML MDV) ONE (08:35)
[2020-10-26] MEDS ORDERED: GLYCOPYRROLATE 0.2 MG/ML 2 ML VIAL ONE (08:35)
[2020-10-26] MEDS ORDERED: PHENYLEPHRINE-0.9% NACL SYG 1,000 MCG/10 ML SYRINGE ONE (08:35)
[2020-10-26] MEDS ORDERED: SUCCINYLCHOLINE CHLORIDE 100 MG/5 ML SYR IV ONE (08:35)
[2020-10-26] MEDS ORDERED: ROPIVACAINE 5 MG/ML 30 ML VIAL ONE (08:35)
[2020-10-26] MEDS ORDERED: ROCURONIUM 10 MG/ML (5 ML VIAL) IV ONE (08:35)
[2020-10-26] MEDS ORDERED: HYDROmorphone (PF) 1 MG/ML ONE (08:35)
[2020-10-26] MEDS ORDERED: NEOSTIGMINE 1 MG/ML 10 ML VIAL ONE (08:35)
[2020-10-26] MEDS ORDERED: ePHEDrine SULFATE/0.9% NACL/PF 50 MG/5 ML SYRINGE IV ONE (08:35)
[2020-10-26] MEDS ORDERED: WATER FOR INJECTION, STERILE 10 ML VIAL IV ONE (08:35)
[2020-10-26] MEDS ORDERED: DEXAMETHASONE SOD PHOSPHATE 4 MG/ML 1 ML VIAL ONE (08:35)
[2020-10-26] MEDS ORDERED: fentaNYL (PF) 50 MCG/ML 2 ML AMP ONE (08:35)
[2020-10-26] MEDS ORDERED: VASOPRESSIN 20 UNIT/ML 1 ML VIAL ONE (08:35)
[2020-10-26] MEDS ORDERED: BUPIVACAINE (PF) 0.25% 30 ML VIAL SQ ONE ×2 (09:29)
[2020-10-26] MEDS ORDERED: LACTATED RINGERS 1,000 ML IV ONE (10:27)
--- NOTE | 2020-10-26 11:29 | P.ANPRN ---
Procedure Note - Anesthesia - Nerve Block Performed Right Erector Spinae Single Time Out Performed: Yes Date of Procedure: 10/26/20 Procedure Start Time: 08:07 Procedure Stop Time: 08:14 Location of Patient: PreOp Indication: Acute Post-Operative Pain, Requested by Surgeon Sedation Type: Sedate with meaningful contact maintained Preparation: Sterile Prep, Sterile Dressing Position: Prone Catheter: None Needle Types: On-Q Needle Gauge: 20 Ultrasound used to visualize needle placement: Yes Ultrasound used to observe medication spread: Yes Injectate: 0.5% Ropivacaine (see comment for volume) (30 ml + decadron 4 mg) Blood Aspirated: No Pain Paresthesia on Injection Noted: No Resistance on Injection: Normal Image Stored and Saved: Yes Events: Uneventful and Well Tolerated
--- NOTE | 2020-10-26 11:31 | P.ANPRN ---
Procedure Note - Anesthesia - Invasive Line Left Arterial Line Time Out Performed: Yes Date of Procedure: 10/26/20 Time of Procedure: 07:15 Location of Patient: PreOp Preparation: Sterile Prep, Sterile Dressing Arterial Line Location: Radial Ultrasound Used: Yes Purpose - Visualization and Identification of Vasculature: Yes Needle Guage: 20 Image Stored and Saved: No Narrative: Radial arterial line placement under u/s using Seldinger technique.
[2020-10-26] MEDS ORDERED: PHENYLEPHRINE-0.9% NACL SYG 1,000 MCG/10 ML SYRINGE IV ONE (11:44)
--- NOTE | 2020-10-26 11:52 | XR ---
EXAMINATION TYPE: XR chest 1V portable DATE OF EXAM: 10/26/2020 COMPARISON: Chest x-ray 11/18/2019 HISTORY: Postop right video-assisted thoroscopy lung biopsy TECHNIQUE: Single frontal view of the chest is obtained. FINDINGS: There is been interval placement of right-sided chest tube. No sizable pneumothorax. Lung volumes are low and the patient is rotated. Subcutaneous emphysema is present. Aorta is dense, cardia c mediastinal silhouette appears prominently possibly due to technique. There are overlying artifacts . Patchy basilar densities are present. IMPRESSION: Territory rotated exam. No evident complication status post chest tube placement.
[2020-10-26] MEDS: HYDROmorphone 0.5 MG/0.5 ML SYRINGE IVP PRN ×3 (12:10→14:10)
--- NOTE | 2020-10-26 14:00 | OP ---
OPERATIVE REPORT DATE OF THE SURGERY: 10/26/2020. SURGEON: Dr. Margarita Dow. PREOPERATIVE DIAGNOSIS: Rule out interstitial pulmonary fibrosis. POSTOPERATIVE DIAGNOSIS: Pending pathology. PROCEDURE: Fiberoptic bronchoscopy and right video thoracoscopic wedge biopsies of the right lung. INDICATION FOR SURGERY: Patient is a patient that was sent to [facility] as an outpatient with symptoms and radiological features suggestive of interstitial pulmonary fibrosis. We were asked to provide tissue diagnosis. The risks, benefits, and alternatives were discussed with him. He understood and agreed to proceed. DESCRIPTION OF PROCEDURE: The patient was brought into the operating room already with a left radial arterial line. General endotracheal anesthesia with a double-lumen tube was induced uneventfully. Sequential compression stockings were applied to both lower extremities. Initial tube position was confirmed by fiberoptic bronchoscopy. Subsequently, the patient was placed in the left lateral decubitus position and all pressure points were supported and axillary roll placed. The tube position again was confirmed with fiberoptic bronchoscopy. At this point, the right lung was deflated and access to the pleural cavity was initially obtained via the 7th intercostal space mid axillary line. A 10 mm 0 degree scope was inserted. There were minimal strands of adhesions between the lungs, mainly the left lower lobe and the chest wall. Another counter incision was made anteriorly at the level of the 5th intercostal space anterior axillary line, another one at the level of the posterior axillary line of the same space. With that triangulation, we proceeded with multiple finding of a non reinforced IGOR staplers to take a wedge biopsy from the right middle lobe, right lower lobe and right upper lobe that were sent to pathology. No culture required as discussed with the side boss. All staple lines were hemostatic. Subsequently, a 28-Khmer chest tube was placed in the initial camera port at the level of the 7th intercostal space and passed posteriorly to the apex after creating extra holes in it. The lung was inflated under vision after ensuring no bleeding from each incision. The chest tube was anchored to the skin with an Ethibond suture. The anterior and posterior counter incisions were closed in layers using Vicryl 2-0 for the fascia, Vicryl 2-0 for the subcutaneous tissue and Vicryl 4-0 for the skin. Skin glue was applied. The patient was extubated in the operating room and was in stable condition. MMODL / IJN: [id number] /
[2020-10-26 14:27] LABS: ABG PCO2 39 mmHg (35-45); ABG PH 7.35 (7.35-7.45)
[2020-10-26 14:29] LABS: ABG HCO3 22 mmol/L (21-25); ABG Oxygen Saturation 90.8 % (94-97); ABG PO2 59 mmHg (83-108); ABG TCO2 23 mmol/L (19-24)
[2020-10-26] MEDS: PHENYLEPHRINE 40 MG in SODIUM CHLORIDE 0.9% 250 ML IV SCH (15:35)
[2020-10-26] MEDS ORDERED: CYCLOBENZAPRINE 10 MG TAB PO PRN (15:40)
[2020-10-26] MEDS ORDERED: DEXTROSE 5%-0.45% NACL 1,000 ML IV SCH (15:40)
[2020-10-26] MEDS ORDERED: IPRATROPIUM-ALBUTEROL 3 ML NEB IH PRN (15:40)
[2020-10-26] MEDS ORDERED: METOCLOPRAMIDE 5 MG/ML 2 ML VIAL IVP PRN (15:40)
[2020-10-26] MEDS ORDERED: bisacodyL 10 MG SUPP RECTAL PRN (15:40)
[2020-10-26] MEDS ORDERED: ONDANSETRON 4 MG/2 ML VIAL IVP PRN (15:40)
[2020-10-26] MEDS: IPRATROPIUM-ALBUTEROL 3 ML NEB IH SCH ×3 (15:52→19:56)
[2020-10-26] MEDS: HYDROcodone/APAP 7.5-325MG 1 EACH TAB PO PRN ×2 (15:53→22:20)
[2020-10-26] MEDS ORDERED: HEPARIN SODIUM,PORCINE/PF 5,000 UNIT/0.5 ML SYRINGE SQ SCH (16:00)
[2020-10-26 16:07] LABS: Basophils % (A) 0 %; Eosinophils # (A) 0.1 k/uL (0-0.7); Eosinophils % (A) 1 %; HCT 38.5 % (39.0-53.0); Lymphocytes # (A) 0.5 k/uL (1.0-4.8); Lymphocytes % (A) 4 %; MCHC 33.8 g/dL (31.0-37.0); MCV 94.6 fL (80.0-100.0); Mean Platelet Volume 8.8; Monocytes # (A) 0.5 k/uL (0-1.0); Monocytes % (A) 4 %; Neutrophils # (A) 11.7 k/uL (1.3-7.7); Neutrophils % (A) 91 %; Platelet Count 227 k/uL (150-450); RBC 4.07 m/uL (4.30-5.90); RDW 14.9 % (11.5-15.5); WBC 12.8 k/uL (3.8-10.6)
[2020-10-26 16:15] LABS: African American GFR (CKD) >90 (>60 ml/min/1.73 sqM); Anion Gap 2 mmol/L; Blood Urea Nitrogen 23 mg/dL (9-20); Carbon Dioxide 14 mmol/L (22-30); Chloride 124 mmol/L (98-107); Glucose 101 mg/dL (74-99); Non-African American GFR(CKD) >90 (>60 ml/min/1.73 sqM); Sodium 140 mmol/L (137-145)
[2020-10-26 16:26] LABS: Calcium 5.2 mg/dL (8.4-10.2)
[2020-10-26] MEDS ORDERED: CALCIUM GLUCONATE 2 GM in SODIUM CHLORIDE 0.9% 100 ML IVPB ONE (16:32)
--- NOTE | 2020-10-26 16:44 | P.CONS ---
History of Present Illness - Reason for Consult Medical management, hypocalcemia. Hypertension - History of Present Illness The patient is a pleasant 70-year-old male admitted for the right-sided VATS procedure. Flexes underwent the procedure. Patient is clinically doing well does have a chest tube which is draining at this time. Patient underwent biopsy for diagnosis of interstitial fibrosis. Patient had history of Hodgkin's lymphoma in remission for many years did receive radiation therapy at that time it was believed patient may have radiation-induced pulmonary fibrosis. Patient denied any fever chills nausea vomiting abdominal pain patient blood pressures between the lower side patient is hypocalcemic and hyperchloremic. was complaining of chest pain with deep breathing secondary to chest tube Review of Systems REVIEW OF SYSTEMS: CONSTITUTIONAL: No fever, no malaise, no fatigue. HEENT: No recent visual problems or hearing problems. Denied any sore throat. CARDIOVASCULAR: No orthopnea, PND, no palpitations, no syncope. PULMONARY: No shortness of breath, no cough, no hemoptysis. GASTROINTESTINAL: No diarrhea, no nausea, no vomiting, no abdominal pain. NEUROLOGICAL: No headaches, no weakness, no numbness. HEMATOLOGICAL: Denies any bleeding or petechiae. GENITOURINARY: Denies any burning micturition, frequency, or urgency. MUSCULOSKELETAL/RHEUMATOLOGICAL: Denies any joint pain, swelling, or any muscle pain. ENDOCRINE: Denies any polyuria or polydipsia. The rest of the 14-point review of systems is negative. Past Medical History Past Medical History: Atrial Fibrillation, Cancer, COPD, Eye Disorder, Fibromyalgia, Hearing Disorder / Deafness, Hyperlipidemia, Hypertension, Osteoarthritis (OA), Prostate Disorder, Skin Disorder Additional Past Medical History / Comment(s): 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 Hx back prob w/ surgery x3, had neuropathy BLE. Poss early RA. Sl BPH. Lt thumb stitches R/T injury. Increased shortness of breath. History of Any Multi-Drug Resistant Organisms: None Reported Past Surgical History: Back Surgery, Heart Catheterization, Orthopedic Surgery Additional Past Surgical History / Comment(s): lumbar laminectomy with decompression L2-3; lumbar surgery x2; left carpal tunnel, spleenectomy, gunnar cataracts, left thumb trigger finger. Sinus surgery. Heart cath 05/2020. Past Anesthesia/Blood Transfusion Reactions: No Reported Reaction Smoking Status: Former smoker - Past Family History Brother(s) Family Medical History: Cancer Additional Family Medical History / Comment(s): colon Sister(s) Family Medical History: Cancer Additional Family Medical History / Comment(s): uterine Medications and Allergies Home Medications Medication Instructions Recorded Confirmed Type lisinopriL 40 mg PO PC-SUPPER 01/11/15 10/26/20 History HYDROcodone/APAP 7.5-325MG [[place] 1 tab PO BID PRN 03/14/15 10/26/20 History 7.5-325] Metoprolol Succinate [Toprol XL] 25 mg PO PC-SUPPER 05/09/20 10/26/20 History Tamsulosin [Flomax] 0.4 mg PO PC-SUPPER 05/09/20 10/26/20 History Ammonium Lactate Cream [Lac-Hydrin 1 applic TOPICAL BID PRN 06/09/20 10/26/20 History 12% Cream] Cyclobenzaprine [Flexeril] 10 mg PO TID PRN 06/09/20 10/26/20 History Tiotropium Br/Olodaterol HCl 2 spray INHALATION RT-DAILY 06/09/20 10/26/20 Hist ory [Stiolto Respimat Inhal [place]] Apixaban [Eliquis] 5 mg PO BID 06/12/20 10/26/20 History Atorvastatin [Lipitor] 40 mg PO PC-SUPPER #30 tab 06/14/20 10/26/20 Rx amLODIPine [Norvasc] 5 mg PO DAILY #30 tab 06/14/20 10/26/20 Rx Ibuprofen/Diphenhydramine HCl 2 each PO HS PRN 10/22/20 10/22/20 History [Advil Pm Liqui-Gels] Vit C/E/Zn/Coppr/Lutein/Zeaxan 1 each PO DAILY 10/22/20 10/22/20 History [Preservision Areds 2 Softgel] Allergies Allergy/AdvReac Type Severity Reaction Status Date / Time cefazolin Allergy Rash/Hives Verified 10/26/20 07:14 Physical Exam Vitals: Vital Signs Temp Pulse Pulse Pulse Resp BP BP 10/26/20 16:11 10/26/20 16:10 102 H 10/26/20 15:55 100 10/26/20 14:40 90 22 99/54 10/26/20 14:20 92 22 101/63 10/26/20 14:00 93 22 110/56 10/26/20 13:45 93 22 90/59 10/26/20 13:25 92 18 102/57 10/26/20 13:10 87 17 109/62 10/26/20 12:55 89 22 106/62 10/26/20 12:40 88 21 102/59 10/26/20 12:25 90 20 106/59 10/26/20 12:10 86 19 95/56 10/26/20 11:55 93 20 100/56 10/26/20 11:30 90 22 78/49 10/26/20 11:15 92 20 75/45 10/26/20 11:00 92 22 79/50 10/26/20 10:45 100 24 96/52 10/26/20 10:33 97.3 F L 108 H 28 H 106/66 10/26/20 08:38 76 16 90/50 10/26/20 07:31 98.3 F 81 16 122/64 BP Pulse Ox 10/26/20 16:11 92 L 10/26/20 16:10 10/26/20 15:55 10/26/20 14:40 90 L 10/26/20 14:20 90 L 10/26/20 14:00 90 L 10/26/20 13:45 92 L 10/26/20 13:25 95 10/26/20 13:10 98 10/26/20 12:55 97 10/26/20 12:40 96 10/26/20 12:25 97 10/26/20 12:10 88/58 96 10/26/20 11:55 88/60 95 10/26/20 11:30 80/40 95 10/26/20 11:15 75/51 93 L 10/26/20 11:00 80/50 91 L 10/26/20 10:45 91 L 10/26/20 10:33 90 L 10/26/20 08:38 95 10/26/20 07:31 96 Intake and Output 10/26/20 10/26/20 10/26/20 06:59 14:59 22:59 Intake Total 1156 Output Total 10 Balance 1146 Intake: IV 1156 Output: Estimated Blood Loss 10 Other: Weight 98.6 kg PHYSICAL EXAMINATION: GENERAL: The patient is alert and oriented x3, not in any acute distress. Well developed, well nourished. HEENT: Pupils are round and equally reacting to light. EOMI. No scleral icterus. No conjunctival pallor. Normocephalic, atraumatic. No pharyngeal erythema. No thyromegaly. CARDIOVASCULAR: S1 and S2 present. No murmurs, rubs, or gallops. PULMONARY: Bibasilar crackles on exam fairly good air entry into lung macdonald ABDOMEN: Soft, nontender, nondistended, normoactive bowel sounds. No palpable organomegaly. MUSCULOSKELETAL: No joint swelling or deformity. EXTREMITIES: No cyanosis, clubbing, or pedal edema. NEUROLOGICAL: Gross neurological examination did not reveal any focal deficits. SKIN: No rashes. Results CBC & Chem 7: 10/26/20 16:03 10/26/20 16:03 Labs: Abnormal Lab Results - Last 24 Hours (Table) 10/26/20 10/26/20 10/26/20 Range/Units 14:20 16:03 16:03 WBC 12.8 H (3.8-10.6) k/uL RBC 4.07 L (4.30-5.90) m/uL Hct 38.5 L (39.0-53.0) % Neutrophils # 11.7 H (1.3-7.7) k/uL Lymphocytes # 0.5 L (1.0-4.8) k/uL ABG pO2 59 L* (83-108) mmHg ABG O2 Saturation 90.8 L (94-97) % Potassium 3.0 L (3.5-5.1) mmol/L Chloride 124 H (98-107) mmol/L Carbon Dioxide 14 L (22-30) mmol/L BUN 23 H (9-20) mg/dL Glucose 101 H (74-99) mg/dL Calcium 5.2 L* (8.4-10.2) mg/dL Assessment and Plan Plan: -Hypotension: Perioperative hypotension expected will hold off on Norvasc as well as the TONYA inhibitor continue to monitor the blood pressure. -Atrial fibrillation presently rate controlled patient is on anticoagulation with apex of and which will be resumed at this time. -Hypocalcemia etiology not clear will obtain vitamin D3 levels and be secondary to IV hydration he may have received involved -Hyperchloremic metabolic acidosis: Probably secondary to IV fluids. -COPD and is a former smoker patient is not in COPD exacerbation -Possible pulmonary fibrosis next and-hyperlipidemia -Hypertension -Benign prostatic hypertrophy -History of Hodgkin's lymphoma and received chemotherapy and radiation therapy in 1973 and is in remission since then.
[2020-10-26] MEDS: CLINDAMYCIN 900 MG in DEXTROSE 5% IN WATER 50 ML IVPB SCH ×2 (16:54)
[2020-10-26] MEDS ORDERED: lisinopriL 20 MG TAB PO SCH (18:30)
[2020-10-26] MEDS ORDERED: Potassium Replacement Protocol 1 EACH MISC MISCELLANE PRN (20:00)
[2020-10-26] MEDS: TAMSULOSIN 0.4 MG CAP.ER.24H PO SCH (20:24)
[2020-10-26] MEDS: ATORVASTATIN 40 MG TAB PO SCH (20:24)
[2020-10-26] MEDS: CALCIUM CARBONATE 500 MG CHEWABLE PO SCH (20:25)
[2020-10-26] MEDS: POTASSIUM CHLORIDE ER 20 MEQ TAB.ER PO SCH ×2 (20:27→20:32)
[2020-10-26] MEDS: KETOROLAC 15 MG/ML 1 ML VIAL IVP SCH (20:29)
[2020-10-27] MEDS: CLINDAMYCIN 900 MG in DEXTROSE 5% IN WATER 50 ML IVPB SCH ×2 (00:56)
[2020-10-27] MEDS: METOPROLOL SUCCINATE (ER) 25 MG TAB.ER.24H PO SCH ×2 (00:57→16:06)
[2020-10-27] MEDS: KETOROLAC 15 MG/ML 1 ML VIAL IVP SCH ×2 (02:59→07:51)
[2020-10-27] MEDS: PHENYLEPHRINE 40 MG in SODIUM CHLORIDE 0.9% 250 ML IV SCH (05:24)
[2020-10-27] MEDS: HYDROcodone/APAP 7.5-325MG 1 EACH TAB PO PRN ×3 (05:26→17:54)
[2020-10-27] MEDS ORDERED: METOCLOPRAMIDE 5 MG/ML 2 ML VIAL IVP STA (07:31)
--- NOTE | 2020-10-27 07:41 | XR ---
EXAMINATION TYPE: XR chest 2V DATE OF EXAM: 10/27/2020 COMPARISON: Chest x-ray from yesterday. CT chest August 24, 2020 HISTORY: Postoperative VATs with lung biopsy. TECHNIQUE: Frontal and lateral views of the chest are obtained. FINDINGS: Background Chronic parenchymal changes redemonstrated. Diminished inspiration with right-s ided chest tube redemonstrated. No right-sided pneumothorax. Cardiomegaly with atherosclerotic aorta and moderate central vascular congestion. Osseous structures are intact. IMPRESSION: Cardiomegaly with moderate central vascular congestion and bibasilar atelectasis and/or infiltrate. Right-sided chest tube without pneumothorax. No significant change from one day earlier.
[2020-10-27] MEDS: CALCIUM CARBONATE 500 MG CHEWABLE PO SCH ×3 (07:51→20:04)
[2020-10-27 07:57] LABS: Basophils % (A) 0 %; Eosinophils % (A) 0 %; HCT 40.9 % (39.0-53.0); Lymphocytes # (A) 1.1 k/uL (1.0-4.8); Lymphocytes % (A) 6 %; MCH 32.8 pg (25.0-35.0); MCHC 34.3 g/dL (31.0-37.0); MCV 95.6 fL (80.0-100.0); Mean Platelet Volume 7.4; Monocytes % (A) 11 %; Neutrophils # (A) 14.7 k/uL (1.3-7.7); Neutrophils % (A) 81 %; Platelet Count 240 k/uL (150-450); RBC 4.28 m/uL (4.30-5.90); WBC 18.2 k/uL (3.8-10.6)
[2020-10-27 08:08] LABS: Potassium 4.8 mmol/L (3.5-5.1); Total Bilirubin 0.4 mg/dL (0.2-1.3); Total Protein 6.4 g/dL (6.3-8.2)
[2020-10-27] MEDS: IPRATROPIUM-ALBUTEROL 3 ML NEB IH SCH ×4 (08:11→20:09)
[2020-10-27] MEDS ORDERED: amLODIPine 5 MG TAB PO SCH (09:00)
--- NOTE | 2020-10-27 09:48 | P.PN ---
Subjective Progress Note Date: 10/27/20 Principal diagnosis: Rule out interstitial pulmonary fibrosis. Past medical history significant for paroxysmal atrial fibrillation on Eliquis for anticoagulation on an outpatient basis, hypertension, hyperlipidemia, chronic obstructive pulmonary disease, benign prostatic hypertrophy, Hodgkin's lymphoma remission, status post radiation and chemotherapy treatment in 1973, remote history of nicotine dependence, osteoarthritis and fibromyalgia. POD #1 fiberoptic bronchoscopy and right video-assisted thoracoscopic wedge biopsies of the right lung. The patient is seen today 10/27/2020 at his bedside on the cardiac stepdown unit. Currently he is lying in bed, is awake, alert and oriented 3 and is in no acute apparent distress. Oxygen saturations are 92% on 4 L nasal cannula and he is achieving 1000 mL on his incentive spirometry with encouragement. Right pleural chest tube remains in place to water seal. No air leak is present. Draining thin serosanguineous drainage with 120 mL output since surgery. The patient reports this morning he has had some urinary retention requiring him to be straight catheterized with 700 mL of urine drained. He also reports that he does not usually have an issue with urinary retention except after receiving anesthesia. He remains hemodynamically stable and is currently on no inotropic of pressure support. Remote telemetry showing sinus tachycardia heart rate 103 BPM. He has been afebrile in the last 24 hours. Chest x-ray report shows no sizable pneumothorax, cardiomegaly with moderate central vascular congestion and bibasilar atelectasis and/or infiltrate. Laboratory results this morning show a WBC count 18.2, hemoglobin 14.0, hematocrit 40.9, platelets 240, sodium 137, potassium 4.8, CO2 20, BUN 39, creatinine 1.20, AST 78 and ALT 62. Objective - Vital Signs Vital signs: Vital Signs Temp 97.9 F 10/27/20 07:47 Pulse 103 H 10/27/20 07:47 Resp 18 10/27/20 07:47 BP 107/67 10/27/20 07:47 Pulse Ox 91 L 10/27/20 07:47 Intake & Output 10/26/20 10/27/20 10/27/20 18:59 06:59 18:59 Intake Total 1274 1080 Output Total 10 1400 65 Balance 1264 -1400 1015 Weight 98.6 kg 97.9 kg Intake: IV 1156 Oral 118 1080 Output: Drainage 65 Right Lower Chest 65 Urine 1400 Straight 700 Estimated Blood Loss 10 - Exam CONSTITUTIONAL: Lying in bed with his head of the bed elevated on the cardiac stepdown unit, appears comfortable, cooperative, no apparent acute distress. HEENT: Neck is supple, no JVD, no lymphadenopathy. No scleral icterus. Mucous membranes are pink and moist. RESPIRATORY: Lungs sounds essentially with few scattered rhonchi throughout, diminished to his bilateral bases right greater than left. Respirations are symmetrical and nonlabored. Currently on 4 L nasal cannula with oxygen saturations 92%. Able to achieve 1000 mL on their incentive spirometry. Strong cough. CARDIOVASCULAR: Regular rhythm and rate. S1 and S2 present, negative for S3, gallop or murmur. Remote telemetry showing sinus tachycardia heart rate 103 BPM. Knee-high sequential compression devices in place to his bilateral lower extremities. GASTROINTESTINAL: Abdomen soft, nontender, nondistended. Active bowel sounds present 4 quadrants. Tolerating diet. Passing flatus. No guarding or rigidity. GENITOURINARY: Urinary retention with straight cath required. Output 700 mL in the last 8 hours with straight cath. INTEGUMENTARY: Skin is warm and dry with evidence of good perfusion. Right thoracoscopic chest incisions clean, dry and approximated. No drainage or redness is present. NEUROLOGIC: Cranial nerves II through XII intact. No focal deficits. MUSKULOSKELETAL: Able to move all extremities, strength equal bilaterally, generalized weakness. PSYCHIATRIC: Alert and oriented to person place and time, appropriate affect, intact judgment and insight. INVASIVE LINES AND TUBES: Right pleural chest tube in place to water seal. No air leak is present. Draining thin serosanguineous drainage with 120 mL output since surgery. - Labs CBC & Chem 7: 10/27/20 07:06 10/26/20 16:03 Labs: Abnormal Lab Results - Last 24 Hours (Table) 10/26/20 10/26/20 10/26/20 Range/Units 14:20 16:03 16:03 WBC 12.8 H (3.8-10.6) k/uL RBC 4.07 L (4.30-5.90) m/uL Hct 38.5 L (39.0-53.0) % Neutrophils # 11.7 H (1.3-7.7) k/uL Lymphocytes # 0.5 L (1.0-4.8) k/uL Monocytes # (0-1.0) k/uL ABG pO2 59 L* (83-108) mmHg ABG O2 Saturation 90.8 L (94-97) % Potassium 3.0 L (3.5-5.1) mmol/L Chloride 124 H (98-107) mmol/L Carbon Dioxide 14 L (22-30) mmol/L BUN 23 H (9-20) mg/dL Glucose 101 H (74-99) mg/dL Calcium 5.2 L* (8.4-10.2) mg/dL 10/27/20 Range/Units 07:06 WBC 18.2 H (3.8-10.6) k/uL RBC 4.28 L (4.30-5.90) m/uL Hct (39.0-53.0) % Neutrophils # 14.7 H (1.3-7.7) k/uL Lymphocytes # (1.0-4.8) k/uL Monocytes # 2.0 H (0-1.0) k/uL ABG pO2 (83-108) mmHg ABG O2 Saturation (94-97) % Potassium (3.5-5.1) mmol/L Chloride (98-107) mmol/L Carbon Dioxide (22-30) mmol/L BUN (9-20) mg/dL Glucose (74-99) mg/dL Calcium (8.4-10.2) mg/dL Assessment and Plan Assessment: 1. Rule out interstitial pulmonary fibrosis, status post fiberoptic bronchoscopy and right video-assisted thoracoscopic wedge biopsies of the right lung 2. Chronic obstructive pulmonary disease 3. Paroxysmal atrial fibrillation, Eliquis for anticoagulation 4. History of hypertension 5. Dyslipidemia 6. Benign prostatic hypertrophy 7. History of Hodgkin's lymphoma in remission, status post radiation and chemotherapy treatments in 1973 8. Remote history of nicotine dependence 9. Fibromyalgia 10. Osteoarthritis 11. Urinary retention, secondary to history of BPH 12. Elevated transaminases enzymes, possibly secondary to hypotension Plan: 1. Chest x-ray this morning shows no evidence of pneumothorax, chest tube without air leak. Right pleural chest tube removed without incident. 2. Encourage use of his incentive spirometry 10 times every hour while awake. 3. Wean oxygen as tolerated to maintain oxygen saturations greater than or equal to 92%. Bronchodilators and oxygen management per pulmonary/critical care medicine. 4. GI and DVT prophylaxis. 5. Increase activity as tolerated. Out of bed for all meals. 6. Pain control per current when necessary orders. Toradol was discontinued due to his elevated BUN. 7. Continue to monitor daily labs and chest x-rays. 8. More recommendations to follow based on patient's clinical course. Time with Patient: Greater than 30
[2020-10-27] MEDS ORDERED: FUROSEMIDE 10 MG/ML 4 ML VIAL IV STA (11:04)
[2020-10-27] MEDS ORDERED: FUROSEMIDE 10 MG/ML 4 ML VIAL ONE (11:08)
--- NOTE | 2020-10-27 12:14 | P.CNPUL ---
History of Present Illness Consult date: 10/27/20 Requesting physician: Margarita Dow Reason for consult: dyspnea, hypoxemia, pulmonary fibrosis, abnormal CXR/CT Chief complaint: Interstitial lung disease, shortness of breath. History of present illness: Pulmonary consult dated 10/27/2020. 70-year-old male that I sent to cardiothoracic surgery for lung biopsy. I suspect the patient has interstitial lung disease/pulmonary fibrosis. The jose luis ent had surgery on October 26. The chest tube was removed from the right side today. The patient has been seen by cardiothoracic surgery and the primary to discharge the patient tomorrow. The patient's chest x-ray showed in my opinion, fluid overload, we gave the patient 1 dose of Lasix, 40 mg. Currently, the patient is on 3 L nasal cannula. Temperature is 98.1, heart rate 84, respiratory rate 18, and blood pressure 162/84. Labs include a white count of 18.2, he will 14, hematocrit 40.9, and platelet count 340,000. A blood gas was done on room air yesterday which showed a PaO2 of 59, pCO2 39, pH is 7.35. His blood gas was consistent with hypoxemia and a mild metabolic acidosis. Sodium 1 37, potassium 4.8, chlorides 106, CO2 20, anion gap 11, BUN 39, creatinine 1.20. Chest x-ray shows cardiomegaly with moderate central vascular congestion and bibasilar atelectasis. There was a right chest tube, without pneumothorax. The right chest tube has subsequently been removed. Follow-up chest x-ray has not yet been done. Review of Systems REVIEW OF SYSTEMS: CONSTITUTIONAL: [Negative.] NEUROLOGIC: [ Negative.] HEENT: [ Negative.] CARDIAC: [Negative.] PULMONARY: Shortness of breath on exertion. GI: [Negative.] : [Negative.] RHEUMATOLOGIC: [ Negative.] IMMUNOLOGIC: [ Negative.] ENDOCRINE: [Negative. ] DERMATOLOGIC: [Negative.] Past Medical History Past Medical History: Atrial Fibrillation, Cancer, COPD, Eye Disorder, Fibromyalgia, Hearing Disorder / Deafness, Hyperlipidemia, Hypertension, Osteoarthritis (OA), Prostate Disorder, Skin Disorder Additional Past Medical History / Comment(s): 1973 non hodgkins lymphoma- chemo/radiation. 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 Hx back prob w/ surgery x3, had neuropathy BLE. Poss early RA. Sl BPH. Lt thumb stitches R/T injury. Increased shortness of breath. History of Any Multi-Drug Resistant Organisms: None Reported Past Surgical History: Back Surgery, Heart Catheterization, Orthopedic Surgery Additional Past Surgical History / Comment(s): lumbar laminectomy with decompression L2-3; lumbar surgery x2; left carpal tunnel, spleenectomy, gunnar cataracts, left thumb trigger finger. Sinus surgery. Heart cath 05/2020. Past Anesthesia/Blood Transfusion Reactions: No Reported Reaction Smoking Status: Former smoker - Past Family History Brother(s) Family Medical History: Cancer Additional Family Medical History / Comment(s): colon Sister(s) Family Medical History: Cancer Additional Family Medical History / Comment(s): uterine Medications and Allergies Home Medications Medication Instructions Recorded Confirmed Type lisinopriL 40 mg PO PC-SUPPER 01/11/15 10/26/20 History HYDROcodone/APAP 7.5-325MG [[place] 1 tab PO BID PRN 03/14/15 10/26/20 History 7.5-325] Metoprolol Succinate [Toprol XL] 25 mg PO PC-SUPPER 05/09/20 10/26/20 History Tamsulosin [Flomax] 0.4 mg PO PC-SUPPER 05/09/20 10/26/20 History Ammonium Lactate Cream [Lac-Hydrin 1 applic TOPICAL BID PRN 06/09/20 10/26/20 History 12% Cream] Cyclobenzaprine [Flexeril] 10 mg PO TID PRN 06/09/20 10/26/20 History Tiotropium Br/Olodaterol HCl 2 spray INHALATION RT-DAILY 06/09/20 10/26/20 H istory [Stiolto Respimat Inhal [place]] Apixaban [Eliquis] 5 mg PO BID 06/12/20 10/26/20 History Atorvastatin [Lipitor] 40 mg PO PC-SUPPER #30 tab 06/14/20 10/26/20 Rx amLODIPine [Norvasc] 5 mg PO DAILY #30 tab 06/14/20 10/26/20 Rx Ibuprofen/Diphenhydramine HCl 2 each PO HS PRN 10/22/20 10/22/20 History [Advil Pm Liqui-Gels] Vit C/E/Zn/Coppr/Lutein/Zeaxan 1 each PO DAILY 10/22/20 10/22/20 History [Preservision Areds 2 Softgel] Allergies Allergy/AdvReac Type Severity Reaction Status Date / Time cefazolin Allergy Rash/Hives Verified 10/26/20 07:14 Physical Exam Osteopathic Statement: *. No significant issues noted on an osteopathic structural exam other than those noted in the History and Physical/Consult. Vitals: Vital Signs Temp Pulse Pulse Pulse Resp BP BP 10/27/20 11:07 98.1 F 84 18 162/84 10/27/20 08:22 79 10/27/20 08:12 78 10/27/20 08:00 18 10/27/20 07:47 97.9 F 103 H 18 107/67 10/27/20 04:00 107 H 20 110/68 10/27/20 03:45 65 10/27/20 03:32 65 10/27/20 00:39 10/27/20 00:00 98.0 F 99 18 138/80 10/26/20 20:10 102 H 10/26/20 20:00 97.9 F 104 H 22 111/73 10/26/20 19:56 100 10/26/20 17:20 97 118/74 10/26/20 17:05 100 110/69 10/26/20 16:50 95 107/70 10/26/20 16:35 97 96/54 10/26/20 16:20 98 113/72 10/26/20 16:11 10/26/20 16:10 102 H 10/26/20 16:05 99 116/75 10/26/20 16:00 22 10/26/20 15:55 100 10/26/20 15:50 99 114/73 10/26/20 15:35 100 113/76 10/26/20 15:20 97.5 F L 99 22 129/78 10/26/20 14:40 90 22 99/54 10/26/20 14:20 92 22 101/63 10/26/20 14:00 93 22 110/56 10/26/20 13:45 93 22 90/59 10/26/20 13:25 92 18 102/57 10/26/20 13:10 87 17 109/62 10/26/20 12:55 89 22 106/62 10/26/20 12:40 88 21 102/59 10/26/20 12:25 90 20 106/59 10/26/20 12:10 86 19 95/56 BP Pulse Ox 10/27/20 11:07 94 L 10/27/20 08:22 10/27/20 08:12 91 L 10/27/20 08:00 10/27/20 07:47 91 L 10/27/20 04:00 93 L 10/27/20 03:45 10/27/20 03:32 10/27/20 00:39 94 L 10/27/20 00:00 93 L 10/26/20 20:10 10/26/20 20:00 91 L 10/26/20 19:56 10/26/20 17:20 92 L 10/26/20 17:05 93 L 10/26/20 16:50 92 L 10/26/20 16:35 91 L 10/26/20 16:20 92 L 10/26/20 16:11 92 L 10/26/20 16:10 10/26/20 16:05 90 L 10/26/20 16:00 10/26/20 15:55 10/26/20 15:50 90 L 10/26/20 15:35 90 L 10/26/20 15:20 92 L 10/26/20 14:40 90 L 10/26/20 14:20 90 L 10/26/20 14:00 90 L 10/26/20 13:45 92 L 10/26/20 13:25 95 10/26/20 13:10 98 10/26/20 12:55 97 10/26/20 12:40 96 10/26/20 12:25 97 10/26/20 12:10 88/58 96 Intake and Output 10/26/20 10/27/20 10/27/20 22:59 06:59 14:59 Intake Total 118 1080 Output Total 1400 65 Balance 118 -1400 1015 Intake: Oral 118 1080 Output: Drainage 65 Right Lower Chest 65 Urine 1400 Straight 700 Other: Weight 97.9 kg No acute distress, oriented 3. Nasal O2 in place at 3 L. Saturations are 94%. HEENT examination is grossly unremarkable. Neck supple. Full range of motion. No adenopathy thyromegaly or neck vein d istention. Cardiovascular examination reveals regular rhythm rate. S1-S2 normal. No S3 or S4. No discernible murmur noted. Heart rate 84 bpm. Lungs reveal diffuse scattered rhonchi and bilateral crackles. Breath sounds equal. No wheezes. Abdomen soft bowel sounds are heard. No masses or tenderness. Extremities are intact. No cyanosis clubbing or edema. Skin is without rash or lesion. Neurologic examination is brief but nonfocal. Results - Laboratory Findings CBC and BMP: 10/27/20 07:06 10/27/20 07:06 ABG ABG pH 7.35 (7.35-7.45) 10/26/20 14:20 ABG pCO2 39 mmHg (35-45) 10/26/20 14:20 ABG pO2 59 mmHg (83-108) L* 10/26/20 14:20 ABG O2 Saturation 90.8 % (94-97) L 10/26/20 14:20 Abnormal lab findings: Abnormal Labs 10/26/20 10/26/20 10/26/20 14:20 16:03 16:03 WBC 12.8 H RBC 4.07 L Hct 38.5 L Neutrophils # 11.7 H Lymphocytes # 0.5 L Monocytes # ABG pO2 59 L* ABG O2 Saturation 90.8 L Potassium 3.0 L Chloride 124 H Carbon Dioxide 14 L BUN 23 H Glucose 101 H Calcium 5.2 L* AST ALT 10/27/20 10/27/20 07:06 07:06 WBC 18.2 H RBC 4.28 L Hct Neutrophils # 14.7 H Lymphocytes # Monocytes # 2.0 H ABG pO2 ABG O2 Saturation Potassium Chloride Carbon Dioxide 20 L BUN 39 H Glucose 112 H Calcium AST 78 H ALT 62 H - Diagnostic Findings Chest x-ray: image reviewed Assessment and Plan Assessment: Postop day #1, status post video-assisted thoracoscopic lung biopsy, right lung, for interstitial lung disease. History of atrial fibrillation. History of hypertension. History of hyperlipidemia. History of deafness. History of non-Hodgkin's lymphoma. History of cluster headaches. History of macular degeneration. History of BPH. History of DJD. History of fibromyalgia. Plan: Plan dated 10/27/2020. The patient's right-sided chest tube was removed by cardiothoracic surgery. I'm sure the patient will have a follow-up chest x-ray. We did give the patient Lasix 40 mg IV push and based on the patient's chest x-ray appearance. The patient's on 3 L nasal cannula. I told the patient that the specimen who we initially evaluated here by our pathologist. After that, the patient's specimen will be sent to [facility] to be evaluated there. The patient will follow-up with me in the office. No additional recommendations are made. Prognosis is guarded. Time with Patient: Greater than 30
[2020-10-27] MEDS: ATORVASTATIN 40 MG TAB PO SCH (16:06)
[2020-10-27] MEDS: TAMSULOSIN 0.4 MG CAP.ER.24H PO SCH (16:06)
[2020-10-27] MEDS: APIXABAN 5 MG TAB PO SCH (20:04)
[2020-10-27] MEDS ORDERED: DILTIAZEM DRIP BOLUS FROM BAG 1 MG SOLN IV ONE (23:21)
[2020-10-27] MEDS: DILTIAZEM 125 MG in SODIUM CHLORIDE 0.9% 100 ML IV SCH (23:39)
[2020-10-28] MEDS: HYDROcodone/APAP 7.5-325MG 1 EACH TAB PO PRN ×3 (01:05→20:47)
--- NOTE | 2020-10-28 06:37 | XR ---
EXAMINATION TYPE: XR chest 2V DATE OF EXAM: 10/28/2020 COMPARISON: Chest CT August 14, 2020. Chest x-ray yesterday. HISTORY: Postoperative right lung biopsy TECHNIQUE: Frontal and lateral views of the chest are obtained. FINDINGS: Background Chronic parenchymal changes redemonstrated. Interval removal of right-sided pascual st tube. No visualized right-sided pneumothorax. Mild Cardiomegaly with atherosclerotic aorta and imp roving central vascular congestion. Osseous structures are intact. Elevated right hemidiaphragm with right basilar opacity. IMPRESSION: Interval removal of Right-sided chest tube without pneumothorax. Chronic parenchymal santa nges bilaterally with elevated right hemidiaphragm and small right pleural effusion with associated r ight basilar atelectasis and/or infiltrate.
[2020-10-28] MEDS: IPRATROPIUM-ALBUTEROL 3 ML NEB IH SCH ×4 (07:08→20:15)
[2020-10-28 07:40] LABS: Basophils # (A) 0.1 k/uL (0-0.2); Basophils % (A) 0 %; Eosinophils # (A) 0.3 k/uL (0-0.7); Eosinophils % (A) 2 %; HCT 41.7 % (39.0-53.0); HGB 14.3 gm/dL (13.0-17.5); Lymphocytes # (A) 1.7 k/uL (1.0-4.8); Lymphocytes % (A) 12 %; MCH 32.3 pg (25.0-35.0); MCHC 34.2 g/dL (31.0-37.0); MCV 94.2 fL (80.0-100.0); Mean Platelet Volume 7.4; Monocytes % (A) 14 %; Neutrophils # (A) 10.2 k/uL (1.3-7.7); Neutrophils % (A) 71 %; Platelet Count 247 k/uL (150-450); RBC 4.42 m/uL (4.30-5.90); RDW 15.1 % (11.5-15.5); WBC 14.4 k/uL (3.8-10.6)
[2020-10-28] MEDS: CALCIUM CARBONATE 500 MG CHEWABLE PO SCH ×4 (07:48→20:48)
[2020-10-28] MEDS: APIXABAN 5 MG TAB PO SCH ×2 (07:48→20:47)
[2020-10-28] MEDS: lisinopriL 20 MG TAB PO SCH (07:48)
[2020-10-28 07:56] LABS: Albumin 3.9 g/dL (3.5-5.0); Calcium 9.2 mg/dL (8.4-10.2); Potassium 4.8 mmol/L (3.5-5.1); Total Bilirubin 0.6 mg/dL (0.2-1.3); Total Protein 6.3 g/dL (6.3-8.2)
[2020-10-28] MEDS ORDERED: HYDROcodone/APAP 7.5-325MG 1 EACH TAB PO SCH ×2 (09:00→14:00)
--- NOTE | 2020-10-28 10:16 | P.PN ---
Subjective Progress Note Date: 10/28/20 Principal diagnosis: Rule out interstitial pulmonary fibrosis. Past medical history significant for paroxysmal atrial fibrillation on Eliquis for anticoagulation on an outpatient basis, hypertension, hyperlipidemia, chronic obstructive pulmonary disease, benign prostatic hypertrophy, Hodgkin's lymphoma remission, status post radiation and chemotherapy treatment in 1973, remote history of nicotine dependence, osteoarthritis and fibromyalgia. POD #2 fiberoptic bronchoscopy and right video-assisted thoracoscopic wedge biopsies of the right lung. The patient is seen today 10/28/2020 at his bedside on the cardiac stepdown unit. Currently he is lying in bed, is awake, alert and oriented 3 and is in no acute apparent distress. Oxygen saturations are 93% on room air. Achieving 1000 mL on his incentive spirometry. His bedside nurse from late shift reports the patient went into atrial fibrillation around 11 PM last evening. Currently he is on a Cardizem drip 5 mg per hour for rate control per cardiology recommendations. Remote telemetry showing atrial fibrillation heart rate 97 BPM. His right pleural chest tube was removed yesterday without incident and his follow-up chest x-ray today shows no evidence of pneumothorax. He was given Lasix 40 mg IV 1 yesterday per pulmonary medicine with good diuresis. No further complaints of urinary retention. The patient is anxious to be discharged home. He reports he has been up ambulating in his room with minimal assistance from nursing staff. The patient also reports he is not wanting to wear his sequential compression devices as it is bothering his neuropathy in his legs. He remains afebrile the last 24 hours. Denies any complaints of shortness of breath or surgical type pain at this time. Objective - Vital Signs Vital signs: Vital Signs Temp 98.7 F 10/28/20 00:00 Pulse 93 10/28/20 07:08 Resp 18 10/28/20 07:08 BP 107/68 10/28/20 04:00 Pulse Ox 93 L 10/28/20 07:08 Intake & Output 10/27/20 10/28/20 10/28/20 18:59 06:59 18:59 Intake Total 1330 Output Total 65 80 Balance 1265 -80 Weight 97.4 kg Intake: Oral 1330 Output: Drainage 65 Right Lower Chest 65 Urine 80 Other: # Voids 5 - Exam CONSTITUTIONAL: Lying in bed with his head of the bed elevated on the cardiac stepdown unit, appears comfortable, cooperative, no apparent acute distress. HEENT: Neck is supple, no JVD, no lymphadenopathy. No scleral icterus. Mucous membranes are pink and moist. RESPIRATORY: Lungs sounds essentially with few scattered crackles to his bilateral bases, diminished to his bilateral bases right greater than left. Respirations are symmetrical and nonlabored. Oxygen saturation are 93% on room air. Able to achieve 1000 mL on their incentive spirometry. Strong cough. CARDIOVASCULAR: Irregular rhythm and controlled rate. S1 and S2 present, negative for S3, gallop or murmur. Remote telemetry showing atrial fibrillation heart rate 97 BPM. +1 edema to his bilateral lower extremities. GASTROINTESTINAL: Abdomen soft, nontender, nondistended. Active bowel sounds present 4 quadrants. Tolerating diet. Passing flatus. No guarding or rigidity. GENITOURINARY: Continues to void. INTEGUMENTARY: Skin is warm and dry with evidence of good perfusion. Right thoracoscopic chest incisions clean, dry and approximated. No drainage or redness is present. Dressing is clean, dry and in place to his previous chest tube insertion site. NEUROLOGIC: Cranial nerves II through XII intact. No focal deficits. MUSKULOSKELETAL: Able to move all extremities, strength equal bilaterally, generalized weakness. PSYCHIATRIC: Alert and oriented to person place and time, appropriate affect, intact judgment and insight. INVASIVE LINES AND TUBES: Right pleural chest tube was removed yesterday 10/27/2020 without incident. - Labs CBC & Chem 7: 10/28/20 06:51 10/28/20 06:51 Labs: Abnormal Lab Results - Last 24 Hours (Table) 10/27/20 10/27/20 Range/Units 07:06 07:06 WBC 18.2 H (3.8-10.6) k/uL RBC 4.28 L (4.30-5.90) m/uL Neutrophils # 14.7 H (1.3-7.7) k/uL Monocytes # 2.0 H (0-1.0) k/uL Carbon Dioxide 20 L (22-30) mmol/L BUN 39 H (9-20) mg/dL Glucose 112 H (74-99) mg/dL AST 78 H (17-59) U/L ALT 62 H (4-49) U/L Vitamin D 25-Hydroxy 19.3 L (30.0-100.0) ng/mL Assessment and Plan Assessment: 1. Rule out interstitial pulmonary fibrosis, status post fiberoptic bronchoscopy and right video-assisted thoracoscopic wedge biopsies of the right lung 2. Chronic obstructive pulmonary disease 3. Paroxysmal atrial fibrillation, Eliquis for anticoagulation 4. History of hypertension 5. Dyslipidemia 6. Benign prostatic hypertrophy 7. History of Hodgkin's lymphoma in remission, status post radiation and pascual motherapy treatments in 1973 8. Remote history of nicotine dependence 9. Fibromyalgia 10. Osteoarthritis 11. Urinary retention, secondary to history of BPH 12. Elevated transaminases enzymes, possibly secondary to hypotension Plan: 1. Follow-up chest x-ray was completed this morning which shows no evidence of pneumothorax. 2. Encourage use of his incentive spirometry 10 times every hour while awake. 3. Bronchodilators and oxygen management per pulmonary/critical care medicine. 4. GI and DVT prophylaxis. 5. Increase activity as tolerated. Out of bed for all meals. 6. Pain control per current when necessary orders. His [place] was decreased to his home dose 7.5 mg/325 mg 1 by mouth twice a day. 7. Continue to monitor daily labs and chest x-rays. 8. Anticipate discharge home within the next 24 hours. 9. Cardiology has been consulted for atrial fibrillation management. Currently on Cardizem drip at 5 mg per hour. Eliquis 5 mg by mouth twice a day was restarted yesterday per his home dose. 10. More recommendations to follow based on patient's clinical course. Time with Patient: Less than 30
[2020-10-28] MEDS: METOPROLOL SUCCINATE (ER) 25 MG TAB.ER.24H PO SCH ×2 (11:09→20:47)
--- NOTE | 2020-10-28 12:10 | P.CRDCN ---
History of Present Illness Consult date: 10/28/20 History of present illness: HISTORY OF PRESENT ILLNESS: This is a 70-year-old male with a past medical history significant for paroxysmal atrial fibrillation on Eliquis, hypertension, hyperlipidemia, COPD, Hodgkin's lymphoma in remission, and former nicotine dependence. Patient follows in the office with Dr. Sherman. We have been asked to see the patient in consultation for ABrian cain with RVR. Patient is status post fiberoptic bronchoscopy and right video-assisted thoracoscopic wedge biopsies of the right lung with Dr. Dow. POD #2. Patient went into atrial fibrillation with RVR overnight and was started on a Cardizem drip. Patient examined at the bedside. Patient denies chest pain or pressure. He denies shortness of breath. Chest tubes were removed yesterday. Dressing to right chest is clean dry intact. Patient remains in atrial fibrillation with mildly uncontrolled ventricular rates. He is on a cardizem drip at 5mg/hr. Patient is complaining of discomfort in his legs due to neuropathy. He is wanting to go home today. EKG reveals atrial fibrillation with RVR Chest xray interval removal of right-sided chest tube without pneumothorax. Chronic parenchymal changes bilaterally with elevated right hemidiaphragm and small right pleural effusion with associated right basilar atelectasis and/or infiltrate. Laboratory data: WBC 14.4. Hemoglobin 14.3. Platelet count 247. Sodium 136. Potassium 4.8. BUN 30. Creatinine 1.01. Current home cardiac medications include lisinopril 40 mg daily, amlodipine 5 mg daily, metoprolol succinate 25 mg at night, Lipitor 40 mg daily, and Eliquis 5 mg twice a day Most recent echocardiogram obtained in February 2020 revealing ejection fraction 55-60%, mild mitral regurgitation, mild tricuspid regurgitation, and mild pulmonary hypertension. Cardiac catheterization history: May 2020 revealing mild nonobstructive coronary artery disease REVIEW OF SYSTEMS: At the time of my exam: CONSTITUTIONAL: Denies fever or chills. HEENT: Denies blurred vision, vision changes, or eye pain. Denies hemoptysis CARDIOVASCULAR: Denies chest pain. Denies orthopnea. Denies PND. Denies palpitations RESPIRATORY: Denies shortness of breath. GASTROINTESTINAL: Denies abdominal pain. Denies nausea or vomiting. HEMATOLOGIC: Denies bleeding disorders. GENITOURINARY: Denies any blood in urine. SKIN: Denies pruitis. Denies rash. PHYSICAL EXAM: VITAL SIGNS: Reviewed. GENERAL: Well-developed in no acute distress. HEENT: Head is normocephalic. Pupils are equal, round. Sclerae anicteric. Mucous membranes of the mouth are moist. Neck supple. No JVD or thyromegaly LUNGS: Respirations even and unlabored. Lungs diminished bilaterally. HEART: Tachycardic. Irregular rate and rhythm. S1 and S2 heard. ABDOMEN: Soft. Nondistended. Nontender. EXTREMITIES: Normal range of motion. No clubbing or cyanosis. Peripheral pulses intact. Trace bilateral lower extremity edema NEUROLOGIC: Awake and alert. Oriented x 3. ASSESSMENT: Shortness of breath, rule out interstitial pulmonary fibrosis,status post fiberoptic bronchoscopy and right video-assisted thoracoscopic wedge biopsies of the right lung COPD Paroxysmal atrial fibrillation with RVR, on anticoagulation with Eliquis Hypertension Hyperlipidemia History of Hodgkin's lymphoma Former nicotine dependence PLAN: Continue postoperative management per cardiothoracic surgery Increase metoprolol to 25 mg twice a day Begin Rythmol 150 mg 3 times a day Wean off Cardizem drip as tolerated Continue telemetry monitoring Continue anticoagulation with Eliquis Encourage use of incentive spirometer Further recommendations pending patient course Nurse practitioner note has been reviewed by physician. Signing provider agrees with the documented findings, assessment, and plan of care. Past Medical History Past Medical History: Atrial Fibrillation, Cancer, COPD, Eye Disorder, Fibromyalgia, Hearing Disorder / Deafness, Hyperlipidemia, Hypertension, Osteoarthritis (OA), Prostate Disorder, Skin Disorder Additional Past Medical History / Comment(s): 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 Hx back prob w/ surgery x3, had neuropathy BLE. Poss early RA. Sl BPH. Lt thumb stitches R/T injury. Increased shortness of breath. History of Any Multi-Drug Resistant Organisms: None Reported Past Surgical History: Back Surgery, Heart Catheterization, Orthopedic Surgery Additional Past Surgical History / Comment(s): lumbar laminectomy with decompression L2-3; lumbar surgery x2; left carpal tunnel, spleenectomy, [place] cataracts, left thumb trigger finger. Sinus surgery. Heart cath 05/2020. Past Anesthesia/Blood Transfusion Reactions: No Reported Reaction Smoking Status: Former smoker - Past Family History Brother(s) Family Medical History: Cancer Additional Family Medical History / Comment(s): colon Sister(s) Family Medical History: Cancer Additional Family Medical History / Comment(s): uterine Medications and Allergies Home Medications Medication Instructions Recorded Confirmed Type lisinopriL 40 mg PO PC-SUPPER 01/11/15 10/26/20 History HYDROcodone/APAP 7.5-325MG [[place] 1 tab PO BID PRN 03/14/15 10/26/20 History 7.5-325] Metoprolol Succinate [Toprol XL] 25 mg PO PC-SUPPER 05/09/20 10/26/20 History Tamsulosin [Flomax] 0.4 mg PO PC-SUPPER 05/09/20 10/26/20 History Ammonium Lactate Cream [Lac-Hydrin 1 applic TOPICAL BID PRN 06/09/20 10/26/20 History 12% Cream] Cyclobenzaprine [Flexeril] 10 mg PO TID PRN 06/09/20 10/26/20 History Tiotropium Br/Olodaterol HCl 2 spray INHALATION RT-DAILY 06/09/20 10/26/20 History [Stiolto Respimat Inhal [place]] Apixaban [Eliquis] 5 mg PO BID 06/12/20 10/26/20 History Atorvastatin [Lipitor] 40 mg PO PC-SUPPER #30 tab 06/14/20 10/26/20 Rx amLODIPine [Norvasc] 5 mg PO DAILY #30 tab 06/14/20 10/26/20 Rx Ibuprofen/Diphenhydramine HCl 2 each PO HS PRN 10/22/20 10/22/20 History [Advil Pm Liqui-Gels] Vit C/E/Zn/Coppr/Lutein/Zeaxan 1 each PO DAILY 10/22/20 10/22/20 History [Preservision Areds 2 Softgel] Allergies Allergy/AdvReac Type Severity Reaction Status Date / Time cefazolin Allergy Rash/Hives Verified 10/26/20 07:14 Physical Exam Vitals: Vital Signs Temp Pulse Pulse Resp BP BP Pulse Ox 10/28/20 11:12 97.7 F 100 18 112/69 94 L 10/28/20 10:54 102 H 18 10/28/20 10:42 102 H 18 10/28/20 07:52 18 10/28/20 07:45 97.8 F 121 H 18 142/77 92 L 10/28/20 07:18 105 H 18 10/28/20 07:08 93 18 93 L 10/28/20 04:00 77 18 107/68 94 L 10/28/20 00:00 98.7 F 117 H 18 127/84 93 L 10/27/20 22:40 98.9 F 128 H 18 151/109 159/100 93 L 10/27/20 20:23 100 10/27/20 20:15 93 L 10/27/20 20:10 100 10/27/20 20:00 98.5 F 100 20 136/77 93 L 10/27/20 16:32 72 10/27/20 16:25 68 10/27/20 16:00 98.1 F 102 H 18 141/94 94 L 10/27/20 14:00 18 Intake and Output 10/27/20 10/28/20 10/28/20 22:59 06:59 14:59 Intake Total 250 Output Total 80 Balance 170 Intake: Oral 250 Output: Urine 80 Other: # Voids 1 5 Weight 97.4 kg Results 10/28/20 06:51 10/28/20 06:51 Cardiac Enzymes 10/28/20 Range/Units 06:51 AST 56 (17-59) U/L CBC 10/28/20 Range/Units 06:51 WBC 14.4 H (3.8-10.6) k/uL RBC 4.42 (4.30-5.90) m/uL Hgb 14.3 (13.0-17.5) gm/dL Hct 41.7 (39.0-53.0) % Plt Count 247 (150-450) k/uL Comprehensive Metabolic Panel 10/28/20 Range/Units 06:51 Sodium 136 L (137-145) mmol/L Potassium 4.8 (3.5-5.1) mmol/L Chloride 103 (98-107) mmol/L Carbon Dioxide 27 (22-30) mmol/L BUN 30 H (9-20) mg/dL Creatinine 1.01 (0.66-1.25) mg/dL Glucose 98 (74-99) mg/dL Calcium 9.2 (8.4-10.2) mg/dL AST 56 (17-59) U/L ALT 53 H (4-49) U/L Alkaline Phosphatase 56 (38-126) U/L Total Protein 6.3 (6.3-8.2) g/dL Albumin 3.9 (3.5-5.0) g/dL Current Medications Generic Name Dose Route Start Last Admin Trade Name Freq PRN Reason Stop Dose Admin Hydrocodone Bitart/Acetaminophen 1 each 10/28/20 14:00 10/28/20 11:09 Hydrocodone/Apap 7.5-325mg 1 Each Tab PO 1 each Q6H REBECA Administration Albuterol/Ipratropium 3 ml 10/26/20 15:40 10/27/20 03:32 Ipratropium-Albuterol 3 Ml Neb IH 11/25/20 10:31 3 ml RT-Q1H PRN Administration Shortness Of Breath Or Wheezing Albuterol/Ipratropium 3 ml 10/26/20 15:40 10/28/20 10:42 Ipratropium-Albuterol 3 Ml Neb IH 11/25/20 12:01 3 ml RT-QID REBECA Administration Amlodipine Besylate 5 mg 10/28/20 17:30 Amlodipine 5 Mg Tab PO DAILY REBECA Apixaban 5 mg 10/27/20 21:00 10/28/20 07:48 Apixaban 5 Mg Tab PO 11/26/20 21:01 5 mg BID REBECA Administration Atorvastatin Calcium 40 mg 10/26/20 18:30 10/27/20 16:06 Atorvastatin 40 Mg Tab PO 11/25/20 18:31 40 mg PC-SUPPER REBECA Administration Bisacodyl 10 mg 10/26/20 15:40 Bisacodyl 10 Mg Supp RECTAL 11/25/20 10:31 DAILY PRN Constipation Calcium Carbonate/Glycine 1,000 mg 10/26/20 22:00 10/28/20 11:11 Calcium Carbonate 500 Mg Chewable PO Not Given TID REBECA Cyclobenzaprine HCl 10 mg 10/26/20 15:40 Cyclobenzaprine 10 Mg Tab PO 11/25/20 10:39 TID PRN Muscle Spasm Diltiazem HCl 125 mg/ Sodium 125 mls @ 5 mls/hr 10/27/20 23:30 10/27/20 23:39 Chloride IV 5 mg/hr .Q24H REBECA 5 mls/hr Administration 5 MG/HR Lisinopril 40 mg 10/28/20 09:00 10/28/20 07:48 Lisinopril 20 Mg Tab PO 40 mg DAILY REBECA Administration Metoprolol Succinate 25 mg 10/28/20 10:45 10/28/20 11:09 Metoprolol Succinate (Er) 25 Mg Tab.Er.24h PO 11/25/20 18:31 25 mg BID REBECA Administration Miscellaneous Information 1 each 10/26/20 20:00 Potassium Replacement Protocol 1 Each Misc MISCELLANE DAILY PRN Per Protocol Protocol Ondansetron HCl 4 mg 10/26/20 15:40 Ondansetron 4 Mg/2 Ml Vial IVP 11/25/20 10:31 Q8HR PRN Nausea And Vomiting Propafenone HCl 150 mg 10/28/20 11:45 Propafenone 150 Mg Tab PO TID REBECA Tamsulosin HCl 0.4 mg 10/26/20 18:30 10/27/20 16:06 Tamsulosin 0.4 Mg Cap.Er.24h PO 11/25/20 18:31 0.4 mg PC-SUPPER REBECA Administration Intake and Output 10/27/20 10/28/20 10/28/20 22:59 06:59 14:59 Intake Total 250 Output Total 80 Balance 170 Intake: Oral 250 Output: Urine 80 Other: # Voids 1 5 Weight 97.4 kg 10/28/20 06:51 10/28/20 06:51
[2020-10-28] MEDS: PROPAFENONE 150 MG TAB PO SCH ×2 (12:36→16:37)
--- NOTE | 2020-10-28 13:50 | P.PN ---
Subjective Progress Note Date: 10/28/20 Principal diagnosis: Right lung biopsy for interstitial lung disease 70-year-old male that I sent to cardiothoracic surgery for lung biopsy. I suspect the patient has interstitial lung disease/pulmonary fibrosis. The patient had surgery on October 26. The chest tube was removed from the right side today. The patient has been seen by cardiothoracic surgery and the primary to discharge the patient tomorrow. The patient's chest x-ray showed in my opinion, fluid overload, we gave the patient 1 dose of Lasix, 40 mg. Currently, the patient is on 3 L nasal cannula. Temperature is 98.1, heart rate 84, respiratory rate 18, and blood pressure 162/84. Labs include a white count of 18.2, he will 14, hematocrit 40.9, and platelet count 340,000. A blood gas was done on room air yesterday which showed a PaO2 of 59, pCO2 39, pH is 7.35. His blood gas was consistent with hypoxemia and a mild metabolic acidosis. Sodium 137, potassium 4.8, chlorides 106, CO2 20, anion gap 11, BUN 39, creatinine 1.20. Chest x-ray shows cardiomegaly with moderate central vascular congestion and bibasilar atelectasis. There was a right chest tube, without pneumothorax. The right chest tube has subsequently been removed. Follow-up chest x-ray has not yet been done. The patient is seen today 10/28/2020 in follow-up on the selective care unit. Right video-assisted thorascopic wedge biopsy of the right lung. Postoperative day #2. He is currently sitting up in a chair at the bedside. Awake and alert in no acute distress. He denies any worsening shortness of breath, cough or congestion. He is maintaining O2 saturation in the 90s on room air. Working well with the incentive spirometer and achieving approximately 1000 ML's. Chest x-ray shows interval removal of the right-sided chest tube without pneumothorax. There is some chronic parenchymal changes bilaterally with elevated right hemidiaphragm and small right pleural effusion with basilar atelectasis. White count 14.4. Hemoglobin 14.3. Sodium 136. Potassium 4.8. BUN 30. Creatinine 1.01. He was up and go home today however he developed atrial fibrillation last evening and was initiated on a Cardizem drip at 5 mg per hour. Anticoagulated with Eliquis. Cardiology consulted. Objective - Vital Signs Vital signs: Vital Signs Temp 97.7 F 10/28/20 11:12 Pulse 100 10/28/20 11:12 Resp 18 10/28/20 12:52 BP 112/69 10/28/20 11:12 Pulse Ox 94 L 10/28/20 11:12 Intake & Output 10/27/20 10/28/20 10/28/20 18:59 06:59 18:59 Intake Total 1330 Output Total 65 80 Balance 1265 -80 Weight 97.4 kg Intake: Oral 1330 Output: Drainage 65 Right Lower Chest 65 Urine 80 Other: # Voids 5 - Exam GENERAL EXAM: Alert, pleasant 70-year-old gentleman, on room air, comfortable in no apparent distress. HEAD: Normocephalic. EYES: Normal reaction of pupils, equal size. NOSE: Clear with pink turbinates. THROAT: No erythema or exudates. NECK: No masses, no JVD. CHEST: No chest wall deformity. Right chest incisions clean dry well approximat ed LUNGS: Equal air entry with crackles in the right base CVS: S1 and S2 normal with no audible murmur, irregular rhythm. ABDOMEN: No hepatosplenomegaly, normal bowel sounds, no guarding or rigidity. SPINE: No scoliosis or deformity SKIN: No rashes CENTRAL NERVOUS SYSTEM: No focal deficits, tone is normal in all 4 extremities. EXTREMITIES: There is no peripheral edema. No clubbing, no cyanosis. Peripheral pulses are intact. - Labs CBC & Chem 7: 10/28/20 06:51 10/28/20 06:51 Labs: Abnormal Lab Results - Last 24 Hours (Table) 10/28/20 10/28/20 Range/Units 06:51 06:51 WBC 14.4 H (3.8-10.6) k/uL Neutrophils # 10.2 H (1.3-7.7) k/uL Monocytes # 2.0 H (0-1.0) k/uL Sodium 136 L (137-145) mmol/L BUN 30 H (9-20) mg/dL ALT 53 H (4-49) U/L Assessment and Plan Assessment: 1 Postop day #2, status post video-assisted thoracoscopic lung biopsy, right lung, for interstitial lung disease. 2 History of atrial fibrillation with an episode of RVR on 10/27/2020, on Cardizem drip at 5 mg per hour. 3 History of hypertension. 4 History of hyperlipidemia. 5 History of deafness. 6 History of non-Hodgkin's lymphoma. 7 History of cluster headaches. 8 History of macular degeneration. 9 History of BPH. 10 History of DJD. 11 History of fibromyalgia. Plan: The patient was seen and evaluated by Dr. Govea Chest x-ray and labs reviewed Stable from the pulmonary standpoint, on room air Episode of A. fib with RVR currently on a Cardizem drip Anticoagulated with Eliquis Anti-arrhythmics per cardiology We'll continue to follow I, the cosigning physician, performed a history & physical examination of the patient. Lungs sounds with crackles in the right base. Maintaining good O2 saturations in the 90s on room air. I discussed the assessment and plan of care with my nurse practitioner, La Nena Lopez. I attest to the above note as dictated by her.
[2020-10-28] MEDS: TAMSULOSIN 0.4 MG CAP.ER.24H PO SCH (16:36)
[2020-10-28] MEDS: ATORVASTATIN 40 MG TAB PO SCH (16:36)
[2020-10-28] MEDS ORDERED: amLODIPine 5 MG TAB PO SCH (17:30)
[2020-10-29] MEDS: DILTIAZEM 125 MG in SODIUM CHLORIDE 0.9% 100 ML IV SCH (00:03)
[2020-10-29] MEDS: PROPAFENONE 150 MG TAB PO SCH ×2 (00:42→08:47)
[2020-10-29 07:57] LABS: HCT 42.3 % (39.0-53.0); HGB 13.7 gm/dL (13.0-17.5); MCH 30.5 pg (25.0-35.0); MCHC 32.4 g/dL (31.0-37.0); MCV 94.2 fL (80.0-100.0); Mean Platelet Volume 7.9; Platelet Count 265 k/uL (150-450); RBC 4.49 m/uL (4.30-5.90); RDW 15.3 % (11.5-15.5); WBC 14.2 k/uL (3.8-10.6)
[2020-10-29 08:06] LABS: Calcium 8.8 mg/dL (8.4-10.2); Potassium 4.4 mmol/L (3.5-5.1)
[2020-10-29] MEDS: lisinopriL 20 MG TAB PO SCH (08:46)
[2020-10-29] MEDS: APIXABAN 5 MG TAB PO SCH (08:46)
[2020-10-29] MEDS: HYDROcodone/APAP 7.5-325MG 1 EACH TAB PO PRN (08:46)
[2020-10-29] MEDS: METOPROLOL SUCCINATE (ER) 25 MG TAB.ER.24H PO SCH (08:47)
[2020-10-29] MEDS: CALCIUM CARBONATE 500 MG CHEWABLE PO SCH (08:48)
[2020-10-29] MEDS ORDERED: DILTIAZEM ORAL 30 MG TAB PO SCH ×2 (09:00→16:00)
[2020-10-29] MEDS: IPRATROPIUM-ALBUTEROL 3 ML NEB IH SCH ×2 (09:07→12:13)
--- NOTE | 2020-10-29 09:09 | P.PN ---
Subjective Progress Note Date: 10/29/20 Principal diagnosis: Rule out interstitial pulmonary fibrosis. Previous medical history of paroxysmal atrial fibrillation on Eliquis for anticoagulation, hypertension, hyperlipidemia, chronic obstructive pulmonary disease, benign prostatic hypertrophy, Hodgkin's lymphoma remission, status post radiation and chemotherapy treatment in 1973, remote history of nicotine dependence, osteoarthritis and fibromyalgia. POD #3 fiberoptic bronchoscopy and right video-assisted thoracoscopic wedge biopsies of the right lung. The patient is currently sitting up in bed in no acute distress. He just returned from ambulating, heart rate slightly elevated in the 110-120 range, remains in atrial fibrillation. Denies shortness of breath. Right-sided surgical incisions are well approximated without redness or drainage. Patient states pain is controlled on current medication regimen. Requesting to go home today. We will await cardiology recommendations for A. fib management and once they have cleared him we will send him home. No other further concerns. Objective - Vital Signs Vital signs: Vital Signs Temp 98.0 F 10/29/20 08:20 Pulse 125 H 10/29/20 08:20 Resp 18 10/29/20 08:20 BP 120/69 10/29/20 08:20 Pulse Ox 93 L 10/29/20 08:20 Intake & Output 10/28/20 10/29/20 10/29/20 18:59 06:59 18:59 Intake Total 180 121.917 Balance 180 121.917 Weight 98.2 kg Intake: Intake, IV Titration 121.917 Amount Diltiazem 125 mg In 121.917 Sodium Chloride 0.9% 100 ml @ 5 MG/HR 5 mls/hr IV .Q24H [facility] Rx#:[id number] Oral 180 Other: Voiding Method Toilet - Exam CONSTITUTIONAL: Appears comfortable, cooperative, no acute distress RESPIRATORY: Lungs sounds diminished bilaterally. Respirations even, nonlabored. Currently on room air with oxygen saturation 93%. Able to achieve 1804-7231 mL on incentive spirometry. Strong cough. CARDIOVASCULAR: S1, S2 present. Irregular rate and rhythm, atrial fibrillation on telemetry. Palpable peripheral pulses bilaterally. No edema present. No calf pain or tenderness noted. SCDs present. GASTROINTESTINAL: Abdomen soft, nontender, nondistended. Active bowel sounds present 4 quadrants. Tolerating diet. GENITOURINARY: Continues to void clear, yellow urine INTEGUMENTARY: Skin is warm and dry with evidence of good perfusion. Thoracic incision well approximated and covered with dry intact dressing. NEUROLOGIC: Cranial nerves II through XII intact MUSKULOSKELETAL: Able to move all extremities, strength equal bilaterally, gait normal PSYCHIATRIC: Alert and oriented to person place and time, appropriate affect, intact judgment and insight - Allied health notes Allied health notes reviewed: nursing - Labs CBC & Chem 7: 10/29/20 06:59 10/29/20 06:59 Labs: Abnormal Lab Results - Last 24 Hours (Table) 10/29/20 10/29/20 Range/Units 06:59 06:59 WBC 14.2 H (3.8-10.6) k/uL Sodium 135 L (137-145) mmol/L BUN 32 H (9-20) mg/dL - Imaging and Cardiology Chest x-ray: image reviewed Assessment and Plan Assessment: 1. Rule out interstitial pulmonary fibrosis, status post fiberoptic bronchoscopy and right video-assisted thoracoscopic wedge biopsies of the right lung 2. Chronic obstructive pulmonary disease 3. Paroxysmal atrial fibrillation, Eliquis for anticoagulation 4. History of hypertension 5. Dyslipidemia 6. Benign prostatic hypertrophy 7. History of Hodgkin's lymphoma in remission, status post radiation and chemotherapy treatments in 1973 8. Remote history of nicotine dependence 9. Fibromyalgia 10. Osteoarthritis 11. Urinary retention, secondary to history of BPH 12. Elevated transaminases enzymes, possibly secondary to hypotension Plan: 1. Continue Eliquis for anticoagulation. IV Cardizem and amlodipine discontinued, patient started on oral Cardizem. Appreciate cardiology recommendations for further A. fib management 2. Encourage use of his incentive spirometry 10 times every hour while awake. 3. Bronchodilators and oxygen management per pulmonary/critical care medicine. 4. GI and DVT prophylaxis. 5. Increase activity, ambulate as tolerated. Out of bed for all meals. 6. Pain control per medication regimen 7. Continue to monitor daily labs and chest x-rays. 8. Anticipate discharge home within the next 24 hours dependent on cardiology recommendations. 9. More recommendations to follow based on patient's clinical course. Time with Patient: Greater than 30
--- NOTE | 2020-10-29 09:36 | XR ---
EXAMINATION TYPE: XR chest 2V DATE OF EXAM: 10/29/2020 COMPARISON: Chest x-ray 10/28/2020 HISTORY: Status post lobectomy TECHNIQUE: Frontal and lateral views of the chest are obtained. FINDINGS: Volume loss in the right hemithorax is again noted. No evident pneumothorax. There is pers istent blunting of the right costophrenic angle, patchy basilar density on the right. Cardiac mediast inal silhouette is stable, aorta is dense. IMPRESSION: Postop changes. There may be minimal basilar effusion, associated atelectasis
[2020-10-29] MEDS ORDERED: CALCIUM CARBONATE 500 MG CHEWABLE PO PRN (10:32)
[2020-10-29 12:42] VITALS: BP 108/73; PULSE 85; RESP 16; TEMP 98.1
--- NOTE | 2020-10-29 12:44 | P.PN ---
Subjective Progress Note Date: 10/29/20 70-year-old male that I sent to cardiothoracic surgery for lung biopsy. I suspect the patient has interstitial lung disease/pulmonary fibrosis. The patient had surgery on October 26. The chest tube was removed from the right side today. The patient has been seen by cardiothoracic surgery and the primary to discharge the patient tomorrow. The patient's chest x-ray showed in my opinion, fluid overload, we gave the patient 1 dose of Lasix, 40 mg. Currently, the patient is on 3 L nasal cannula. Temperature is 98.1, heart rate 84, respiratory rate 18, and blood pressure 162/84. Labs include a white count of 18.2, he will 14, hematocrit 40.9, and platelet count 340,000. A blood gas was done on room air yesterday which showed a PaO2 of 59, pCO2 39, pH is 7.35. His blood gas was consistent with hypoxemia and a mild metabolic acidosis. Sodium 137, potassium 4.8, chlorides 106, CO2 20, anion gap 11, BUN 39, creatinine 1.20. Chest x-ray shows cardiomegaly with moderate central vascular congestion and bibasilar atelectasis. There was a right chest tube, without pneumothorax. The right chest tube has subsequently been removed. Follow-up chest x-ray has not yet been done. The patient is seen today 10/28/2020 in follow-up on the selective care unit. Right video-assisted thorascopic wedge biopsy of the right lung. Postoperative day #2. He is currently sitting up in a chair at the bedside. Awake and alert in no acute distress. He denies any worsening shortness of breath, cough or congestion. He is maintaining O2 saturation in the 90s on room air. Working well with the incentive spirometer and achieving approximately 1000 ML's. Chest x-ray shows interval removal of the right-sided chest tube without pneumothorax. There is some chronic parenchymal changes bilaterally with elevated right hemidiaphragm and small right pleural effusion with basilar atelectasis. White count 14.4. Hemoglobin 14.3. Sodium 136. Potassium 4.8. BUN 30. Creatinine 1.01. He was up and go home today however he developed atrial fibrillation last evening and was initiated on a Cardizem drip at 5 mg per hour. Anticoagulated with Eliquis. Cardiology consulted. 10/29/2020, the patient is postop day #3. Doing well. He is off the Cardizem drip. He is using incentive spirometer. He is pulling approximately 1500 on his incentive spirometer. He is on room air oxygen. Cardiac rhythm is still in atrial fibrillation. He is anticoagulated with Eliquis. No issues with pain. Surgical wound site is dry clean and intact and the plan is to send this patient home today. No other significant issues otherwise for now. Objective - Vital Signs Vital signs: Vital Signs Temp 98.0 F 10/29/20 08:20 Pulse 82 10/29/20 12:25 Resp 18 10/29/20 08:20 BP 120/69 10/29/20 08:20 Pulse Ox 93 L 10/29/20 08:20 Intake & Output 10/28/20 10/29/20 10/29/20 18:59 06:59 18:59 Intake Total 180 121.917 125 Balance 180 121.917 125 Weight 98.2 kg Intake: Intake, IV Titration 121.917 Amount Diltiazem 125 mg In 121.917 Sodium Chloride 0.9% 100 ml @ 5 MG/HR 5 mls/hr IV .Q24H [facility] Rx#:[id number] Oral 180 125 Other: Voiding Method Toilet - Exam GENERAL EXAM: Alert, pleasant 70-year-old gentleman, on room air, comfortable in no apparent distress. HEAD: Normocephalic. EYES: Normal reaction of pupils, equal size. NOSE: Clear with pink turbinates. THROAT: No erythema or exudates. NECK: No masses, no JVD. CHEST: No chest wall deformity. Right chest incisions clean dry well approximated LUNGS: Equal air entry with crackles in the right base CVS: S1 and S2 normal with no audible murmur, irregular rhythm. ABDOMEN: No hepatosplenomegaly, normal bowel sounds, no guarding or rigidity. SPINE: No scoliosis or deformity SKIN: No rashes CENTRAL NERVOUS SYSTEM: No focal deficits, tone is normal in all 4 extremities. EXTREMITIES: There is no peripheral edema. No clubbing, no cyanosis. Peripheral pulses are intact. - Labs CBC & Chem 7: 10/29/20 06:59 10/29/20 06:59 Labs: Abnormal Lab Results - Last 24 Hours (Table) 10/29/20 10/29/20 Range/Units 06:59 06:59 WBC 14.2 H (3.8-10.6) k/uL Sodium 135 L (137-145) mmol/L BUN 32 H (9-20) mg/dL Assessment and Plan Plan: 1 Postop day #3, status post video-assisted thoracoscopic lung biopsy, right lung, for interstitial lung disease. 2 History of atrial fibrillation with an episode of RVR on 10/27/2020, on long- term anticoagulation with Eliquis. Rate is controlled and the patient is off the Cardizem drip 3 History of hypertension. 4 History of hyperlipidemia. 5 History of deafness. 6 History of non-Hodgkin's lymphoma. 7 History of cluster headaches. 8 History of macular degeneration. 9 History of BPH. 10 History of DJD. 11 History of fibromyalgia. Plan: Chest x-ray and labs reviewed Patient is utilizing incentive spirometer and the patient is currently on room air oxygen Anticoagulated with Eliquis Anti-arrhythmics per cardiology We'll continue to follow Increase mobility and home today to be followed up in the office
--- NOTE | 2020-10-29 13:28 | P.DS ---
Providers Date of admission: 10/26/20 06:50 Expected date of discharge: 10/29/20 Attending physician: Margarita Dow Consults: 10/26/20 10:39 Consult Physician Routine Consulting Provider: Sreekanth Whitehead Consult Reason/Comments: Medical Management Do you want consulting provider notified?: Yes 10/26/20 15:40 Consult Physician Routine Consulting Provider: Wilmer Govea Consult Reason/Comments: Pulmonary management Do you want consulting provider notified?: Yes 10/27/20 23:19 Consult Physician Routine Consulting Provider: Jacob Stewart Consult Reason/Comments: afib rvr Do you want consulting provider notified?: Yes, Notify in am 10/29/20 08:30 Consult Physician Routine Consulting Provider: Ayaz Sherman Consult Reason/Comments: known to you Do you want consulting provider notified?: Already Contacted Primary care physician: Prashant Baez [facility] Course: FINAL DIAGNOSIS: 1. Suspected interstitial pulmonary fibrosis 2. Chronic obstructive pulmonary disease 3. Paroxysmal atrial fibrillation 4. Hypertension 5. Hyperlipidemia 6. BPH 7. History of Hodgkin's lymphoma, in remission, status post radiation and chemo in 1973 8. Previous tobacco dependence 9. Fibromyalgia 10. Osteoporosis 11. Urinary retention secondary to BPH PRINCIPAL PROCEDURE: 1. Fiberoptic bronchoscopy and right video-assisted thoracoscopic wedge biopsie s of the right lung HISTORY OF PRESENT ILLNESS: This is a 70-year-old gentleman who follows on an outpatient basis with Dr. Selam Baez. He presented with complaints of worsening shortness of breath over the previous 8-10 months. He was evaluated by both Dr. Sherman from cardiology and Dr. Govea from pulmonology. Cardiac workup included cardiac catheterization which ruled out any coronary artery disease, echocardiogram demonstrated normal ejection fraction with no significant valvular abnormalities. Pulmonary function test revealed minimal obstructive, mild to moderate restrictive disease as well as decreased diffusion capacity. High-resolution CT of the chest was completed demonstrating mildly dilated ascending aorta, no enlarged lymph nodes, and findings compatible with interstit ial lung disease with interlobar interlobular septal lines noted in the upper and lower lobe with pleural thickening present bilaterally. The patient was referred to Dr. Dow from cardiothoracic surgery. He was recommended to undergo video assisted thoracoscopy for wedge biopsy. The usual perioperative course was discussed in detail with the patient and his family, all risks and benefits were explained, all questions were answered, and consent was obtained to proceed with surgery. The patient was scheduled for surgery at the earliest possible date. HOSPITAL COURSE: The patient was brought to the hospital on 10/26/20, taken to the preoperative area, prepared in the usual fashion, and subsequently taken to the operating room where Dr. Dow performed a fiberoptic bronchoscopy and righ t VATS wedge biopsy of the right lung. Upon completion of surgery the patient was extubated and taken to the recovery room for further monitoring. Chest tube was discontinued when appropriate with follow-up chest x-ray stable. He did experience rapid atrial fibrillation which he had a history of and was initiated on new medication, he remained on Eliquis for anticoagulation. His oxygen was titrated down, he was tolerating oral diet, her pain was controlled, and he was ready to be discharged to home on postoperative day #3. He received written and verbal instruction regarding his medications, activity restrictions, signs and symptoms requiring physician notification, and follow-up appointments. COMPLICATIONS: The patient experienced no postoperative complications. Patient Condition at Discharge: Stable Plan - Discharge Summary Discharge Rx Participant: No New Discharge Prescriptions: New Diltiazem Oral [Cardizem*] 30 mg PO TID #90 tab Propafenone [Rythmol] 150 mg PO TID #90 tab Continue Tamsulosin [Flomax] 0.4 mg PO PC-SUPPER Tiotropium Br/Olodaterol HCl [Stiolto Respimat Inhal Herman] 2 spray INHALATION RT-DAILY Cyclobenzaprine [Flexeril] 10 mg PO TID PRN PRN Reason: Muscle Spasm Ammonium Lactate Cream [Lac-Hydrin 12% Cream] 1 applic TOPICAL BID PRN PRN Reason: Dry Skin Apixaban [Eliquis] 5 mg PO BID Atorvastatin [Lipitor] 40 mg PO PC-SUPPER #30 tab Vit C/E/Zn/Coppr/Lutein/Zeaxan [Preservision Areds 2 Softgel] 1 each PO DAILY Ibuprofen/Diphenhydramine HCl [Advil Pm Liqui-Gels] 2 each PO HS PRN PRN Reason: sleep Changed lisinopriL 20 mg PO PC-SUPPER #30 tab HYDROcodone/APAP 7.5-325MG [Hilliard 7.5-325] 1 tab PO QID #14 tab Discontinued Metoprolol Succinate [Toprol XL] 25 mg PO PC-SUPPER amLODIPine [Norvasc] 5 mg PO DAILY #30 tab Discharge Medication List Tamsulosin [Flomax] 0.4 mg PO PC-SUPPER 05/09/20 [History] Ammonium Lactate Cream [Lac-Hydrin 12% Cream] 1 applic TOPICAL BID PRN 06/09/20 [History] Cyclobenzaprine [Flexeril] 10 mg PO TID PRN 06/09/20 [History] Tiotropium Br/Olodaterol HCl [Stiolto Respimat Inhal Herman] 2 spray INHALATION RT-DAILY 06/09/20 [History] Apixaban [Eliquis] 5 mg PO BID 06/12/20 [History] Atorvastatin [Lipitor] 40 mg PO PC-SUPPER #30 tab 06/14/20 [Rx] Ibuprofen/Diphenhydramine HCl [Advil Pm Liqui-Gels] 2 each PO HS PRN 10/22/20 [History] Vit C/E/Zn/Coppr/Lutein/Zeaxan [Preservision Areds 2 Softgel] 1 each PO DAILY 10/22/20 [History] Diltiazem Oral [Cardizem*] 30 mg PO TID #90 tab 10/29/20 [Rx] HYDROcodone/APAP 7.5-325MG [Hilliard 7.5-325] 1 tab PO QID #14 tab 10/29/20 [Rx] Propafenone [Rythmol] 150 mg PO TID #90 tab 10/29/20 [Rx] lisinopriL 20 mg PO PC-SUPPER #30 tab 10/29/20 [Rx] Follow up Appointment(s)/Referral(s): Ayaz Sherman MD [STAFF PHYSICIAN] - 11/09/20 1:45 pm Margarita Dow MD [STAFF PHYSICIAN] - 11/14/20 2:30 pm Wilmer Govea DO [Doctor of Osteopathic Medicine] - 11/21/20 9:30 am Prashant Baez DO [Primary Care Provider] - As Needed Patient Instructions/Handouts: A-fib (Atrial Fibrillation) (DC), Thoracotomy (DC) Activity/Diet/Wound Care/Special Instructions: DISCHARGE INSTRUCTIONS: 1. No driving for 2 weeks, or until physician gives their ok. 2. No lifting, pushing, or pulling more than 10 pounds for 2 weeks. The physician will advise of any restriction changes. 3. Continue pain control per as needed orders. Alternate acetaminophen (Tylenol) and ibuprofen (Motrin/Advil) for pain. 4. Continue with incentive spirometry and splinting until otherwise directed by the physician. 5. Shower daily. May cover incisions if draining, otherwise leave open to air 6. Routine incision care. No powders, lotions, ointments on incisions. 7. Please call surgeon/RETAIL OPERATIONS SPECIALIST for temp greater than 101 F or purulent drainage from incisions. Discharge Disposition: HOME SELF-CARE
--- NOTE | 2020-10-29 13:48 | P.PN ---
Subjective Progress Note Date: 10/29/20 HISTORY OF PRESENT ILLNESS: This is a 70-year-old male with a past medical history significant for paroxysmal atrial fibrillation on Eliquis, hypertension, hyperlipidemia, COPD, Hodgkin's lymphoma in remission, and former nicotine dependence. Patient follows in the office with Dr. Sherman. We have been asked to see the patient in consultation for Emmy cain with RVR. Patient is status post fiberoptic bronchoscopy and right video-assisted thoracoscopic wedge biopsies of the right lung with Dr. Dow. POD #2. Patient went into atrial fibrillation with RVR overnight and was started on a Cardizem drip. Patient examined at the bedside. Patient denies chest pain or pressure. He denies shortness of breath. Chest tubes were removed yesterday. Dressing to right chest is clean dry intact. Patient remains in atrial fibrillation with mildly uncontrolled ventricular rates. He is on a card izem drip at 5mg/hr. Patient is complaining of discomfort in his legs due to neuropathy. He is wanting to go home today. EKG reveals atrial fibrillation with RVR Chest xray interval removal of right-sided chest tube without pneumothorax. Chronic parenchymal changes bilaterally with elevated right hemidiaphragm and small right pleural effusion with associated right basilar atelectasis and/or infiltrate. Laboratory data: WBC 14.4. Hemoglobin 14.3. Platelet count 247. Sodium 136. Potassium 4.8. BUN 30. Creatinine 1.01. Current home cardiac medications include lisinopril 40 mg daily, amlodipine 5 mg daily, metoprolol succinate 25 mg at night, Lipitor 40 mg daily, and Eliquis 5 mg twice a day Most recent echocardiogram obtained in February 2020 revealing ejection fraction 55-60%, mild mitral regurgitation, mild tricuspid regurgitation, and mild pulmonary hypertension. Cardiac catheterization history: May 2020 revealing mild nonobstructive coronary artery disease 10/29/2020 Patient examined this morning in the selective care unit. Patient is currently sitting up in the chair. He denies chest pain or pressure. He denies shortness of breath. He denies palpitations. Patient's Cardizem drip was weaned off yesterday. Patient did become hypotensive overnight. His blood pressure this morning has improved. He remains in atrial fibrillation with controlled ventricular rates. Patient is very anxious to be discharged home today. PHYSICAL EXAM: VITAL SIGNS: Reviewed. GENERAL: Well-developed in no acute distress. HEENT: Head is normocephalic. Pupils are equal, round. Sclerae anicteric. Mucous membranes of the mouth are moist. Neck supple. No JVD or thyromegaly LUNGS: Respirations even and unlabored. Lungs diminished bilaterally. HEART: Irregular rate and rhythm. S1 and S2 heard. ABDOMEN: Soft. Nondistended. Nontender. EXTREMITIES: Normal range of motion. No clubbing or cyanosis. Peripheral pulses intact. Trace bilateral lower extremity edema NEUROLOGIC: Awake and alert. Oriented x 3. ASSESSMENT: Shortness of breath, rule out interstitial pulmonary fibrosis,status post fiberoptic bronchoscopy and right video-assisted thoracoscopic wedge biopsies of the right lung COPD Paroxysmal atrial fibrillation with RVR, on anticoagulation with Eliquis Hypertension Hyperlipidemia History of Hodgkin's lymphoma Former nicotine dependence PLAN: Continue postoperative management per cardiothoracic surgery Discontinue metoprolol Continue Rythmol Change oral Cardizem to 60 mg 3 times a day Patient may be discharged home today from a cardiac standpoint Nurse practitioner note has been reviewed by physician. Signing provider agrees with the documented findings, assessment, and plan of care. Objective - Vital Signs Vital signs: Vital Signs Temp 98.1 F 10/29/20 11:50 Pulse 82 10/29/20 12:25 Resp 16 10/29/20 11:50 BP 108/73 10/29/20 11:50 Pulse Ox 95 10/29/20 11:50 Intake & Output 10/28/20 10/29/20 10/29/20 18:59 06:59 18:59 Intake Total 180 121.917 125 Balance 180 121.917 125 Weight 98.2 kg Intake: Intake, IV Titration 121.917 Amount Diltiazem 125 mg In 121.917 Sodium Chloride 0.9% 100 ml @ 5 MG/HR 5 mls/hr IV .Q24H [facility] Rx#:[id number] Oral 180 125 Other: Voiding Method Toilet - Labs CBC & Chem 7: 10/29/20 06:59 10/29/20 06:59 Labs: Abnormal Lab Results - Last 24 Hours (Table) 10/29/20 10/29/20 Range/Units 06:59 06:59 WBC 14.2 H (3.8-10.6) k/uL Sodium 135 L (137-145) mmol/L BUN 32 H (9-20) mg/dL
[2020-10-30] MEDS ORDERED: lisinopriL 20 MG TAB PO SCH (09:00)
== END 2020-10-29 14:10 | disposition home or self-care (01) | DRG 167 ==
LOC: OR 06:49 → 3SCARD 06:50 → EDSTATUS 08:30 → 3SCARD 10:09 → OR 10-29 07:23
PROVIDERS: ADMIT Surgery; ATTEND Surgery
PROC: 0BBC4ZX Excision of Right Upper Lung Lobe, Percutaneous Endoscopic Approach, Diagnostic (ICD-10-PCS; principal; 2020-10-26 08:30)
PROC: 0W9930Z Drainage of Right Pleural Cavity with Drainage Device, Percutaneous Approach (ICD-10-PCS; principal; 2020-10-26 08:30)
PROC: 0BBD4ZX Excision of Right Middle Lung Lobe, Percutaneous Endoscopic Approach, Diagnostic (ICD-10-PCS; principal; 2020-10-26 08:30)
PROC: 0BJ08ZZ Inspection of Tracheobronchial Tree, Via Natural or Artificial Opening Endoscopic (ICD-10-PCS; principal; 2020-10-26 08:30)
PROC: 0BBF4ZX Excision of Right Lower Lung Lobe, Percutaneous Endoscopic Approach, Diagnostic (ICD-10-PCS; principal; 2020-10-26 08:30)
DX: J84.10 Pulmonary fibrosis, unspecified (principal); J98.11 Atelectasis; E87.2 Acidosis; H91.90 Unspecified hearing loss, unspecified ear; I11.9 Hypertensive heart disease without heart failure; I48.0 Paroxysmal atrial fibrillation; I77.819 Aortic ectasia, unspecified site; J44.9 Chronic obstructive pulmonary disease, unspecified; M19.90 Unspecified osteoarthritis, unspecified site; M79.7 Fibromyalgia; M81.0 Age-related osteoporosis without current pathological fracture; N40.1 Benign prostatic hyperplasia with lower urinary tract symptoms; R33.8 Other retention of urine; R09.02 Hypoxemia; E78.5 Hyperlipidemia, unspecified; E83.51 Hypocalcemia; E87.70 Fluid overload, unspecified; G62.9 Polyneuropathy, unspecified; Z79.01 Long term (current) use of anticoagulants; I95.9 Hypotension, unspecified; Z79.899 Other long term (current) drug therapy; H35.30 Unspecified macular degeneration; Z85.71 Personal history of Hodgkin lymphoma; Z85.72 Personal history of non-Hodgkin lymphomas; Z87.891 Personal history of nicotine dependence; Z90.81 Acquired absence of spleen; Z92.21 Personal history of antineoplastic chemotherapy; Z92.3 Personal history of irradiation; I08.1 Rheumatic disorders of both mitral and tricuspid valves; Z97.4 Presence of external hearing-aid; Z88.1 Allergy status to other antibiotic agents
CPT/HCPCS: 64999; 71045; 71046; 76942; 80048; 80053; 82306; 82805; 83605; 85025; 85027; 86850; 86900; 86901; 88307; 94640; 94660; 94760

== ENCOUNTER → 2020-11-15 | Outpatient (CLI) | payer MEDICARE ==
--- NOTE | 2020-11-15 10:07 | XR ---
EXAMINATION TYPE: XR abdomen 2V DATE OF EXAM: 11/15/2020 COMPARISON: NONE HISTORY: Pain TECHNIQUE: One view abdominal series FINDINGS: The osseous structures are intact. The bowel gas pattern is nonspecific. Degenerative change of the spine. Atherosclerotic change of the vasculature. Arthropathy of the hips. Surgical clips in the righ t abdomen. Tiny calcifications along the right hemidiaphragm. Postsurgical changes involving the left upper quadrant. IMPRESSION: 1. Nonspecific abdomen
== END | disposition home or self-care (01) ==
LOC: RADXRMAIN 09:42
PROVIDERS: ATTEND Family Medicine
DX: R10.9 Unspecified abdominal pain (principal)
CPT/HCPCS: 74019

== ENCOUNTER → 2022-09-16 | Outpatient (CLI) | payer MEDICARE ==
--- NOTE | 2022-09-16 10:24 | CT ---
EXAMINATION TYPE: CT chest wo con DATE OF EXAM: 09/16/2022 COMPARISON: 08/14/2020 HISTORY: pulmonary fibrosis CT DLP: 1497.1 mGycm. Automated Exposure Control for Dose Reduction was Utilized. TECHNIQUE: CT scan of the thorax is performed without IV contrast. FINDINGS: LUNGS: There is a linear hyperdensity at the right lung base which could be related to a previous dys trophic calcification or surgery correlate clinically. There is interlobular septal thickening throug hout the lungs most marked involving the lung bases. Additional linear area of hyperdensity seen in t he right upper lobe axial image 210. Biapical pleural thickening. No focal pneumonia, pleural effusio n or pneumothorax. MEDIASTINUM: Lack of IV contrast is noted to limit evaluation for mediastinal and especially hilar ad enopathy. There are no definitive greater than 1 cm hilar or mediastinal lymph nodes. Atherosclerotic changes of the aorta. Coronary artery calcification. Heart is enlarged. There is a small hypodensity involving the dome of the liver measuring 3 Hounsfield units and 2 cm. OTHER: Multilevel hypertrophic and degenerative changes of the spine.. IMPRESSION: 1. Findings are compatible with moderate pulmonary interstitial chronic lung disease suggestive of id iopathic pulmonary fibrosis UIP type. 2. Coronary artery calcification.
== END | disposition home or self-care (01) ==
LOC: RADCTMAIN 09:26
PROVIDERS: ATTEND Internal Medicine Critical Care Medicine
DX: I25.10 Atherosclerotic heart disease of native coronary artery without angina pectoris (principal); J84.112 Idiopathic pulmonary fibrosis
CPT/HCPCS: 71250

== ENCOUNTER → 2023-03-13 | Outpatient (CLI) | payer OTHER ==
--- NOTE | 2023-03-13 13:47 | US ---
EXAMINATION TYPE: US arterial LE single level DATE OF EXAM: 03/13/2023 1:31 PM CLINICAL INDICATION: Male, 72 years old with history of M79.609 PAIN IN LEG UNSPECIFIED; BILATERAL LE G PAIN, PT HAD BACK SURGERY IN 2007 WITH PAIN EVER SINCE History of: Smoker: PREVIOUS Hypertension: Y Diabetic: N Hyperlipidemia: Y TIA/CVA: N Previous Vascular Surgery: N CAD: N MO: N Vascular Ulcers: N Claudication: N Gangrene: N Doppler Waveforms: Right: Multiphasic Left: Multiphasic Right Brachial Pressure: 134 Left Brachial Pressure: 146 Ankle-Brachial Indices: Right: 1.4 Left: 1.4 Toe Brachial Indices: Right: 1.0 Left: 1.0 IMPRESSION: Normal SACHIN and TBI indices
== END | disposition home or self-care (01) ==
LOC: RADUSWWP 12:26
DX: M79.604 Pain in right leg (principal); M79.605 Pain in left leg
CPT/HCPCS: 93922

== ENCOUNTER 2023-09-04 07:32 | Emergency (ER) | payer OTHER ==
--- NOTE | 2023-09-04 07:54 | ED ---
General Adult HPI - General Chief complaint: Back Pain/Injury Stated complaint: Back Pain Time Seen by Provider: 09/04/23 07:37 Source: patient, family, RN notes reviewed Mode of arrival: ambulatory Limitations: no limitations - History of Present Illness Initial comments: Patient is a pleasant 73-year-old male present to the emergency department with concerns for back pain. Patient feels he turned the wrong way and injured it. Patient does have history of chronic back pain and has had 2 previous surgeries. Discomfort is right lateral lower lumbar/hip region. Discomfort does increase with movement. Patient has also felt lightheaded over the past week. This is usually after taking his morning medications. Patient finds his blood pressure before his medications is very high and then after he takes his medication seems to be somewhat low. - Related Data Home Medications Medication Instructions Recorded Confirmed Tamsulosin [Flomax] 0.4 mg PO PC-SUPPER 05/09/20 10/26/20 Ammonium Lactate Cream [Lac-Hydrin 1 applic TOPICAL BID PRN 06/09/20 10/26/20 12% Cream] Cyclobenzaprine [Flexeril] 10 mg PO TID PRN 06/09/20 10/26/20 Tiotropium Br/Olodaterol HCl 2 spray INHALATION RT-DAILY 06/09/20 10/26/20 [Stiolto Respimat Inhal [place]] Apixaban [Eliquis] 5 mg PO BID 06/12/20 10/26/20 Ibuprofen/Diphenhydramine HCl 2 each PO HS PRN 10/22/20 10/22/20 [Advil Pm Liqui-Gels] Vit C/E/Zn/Coppr/Lutein/Zeaxan 1 each PO DAILY 10/22/20 10/22/20 [Preservision Areds 2 Softgel] Previous Rx's Medication Instructions Recorded Atorvastatin [Lipitor] 40 mg PO PC-SUPPER #30 tab 06/14/20 Diltiazem Oral [Cardizem*] 30 mg PO TID #90 tab 10/29/20 HYDROcodone/APAP 7.5-325MG [[place] 1 tab PO QID #14 tab 10/29/20 7.5-325] Propafenone [Rythmol] 150 mg PO TID #90 tab 10/29/20 lisinopriL 20 mg PO PC-SUPPER #30 tab 10/29/20 Allergies Allergy/AdvReac Type Severity Reaction Status Date / Time cefazolin Allergy Rash/Hives Verified 09/04/23 07:37 Review of Systems ROS Statement: Those systems with pertinent positive or pertinent negative responses have been documented in the HPI. ROS Other: All systems not noted in ROS Statement are negative. 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 cluster migraines, eczema, History of Any Multi-Drug Resistant Organisms: None Reported Past Surgical History: Back Surgery, Heart Catheterization, Orthopedic Surgery Additional Past Surgical History / Comment(s): lumbar laminectomy with decompression L2-3. lumbar surgery x2, left carpal tunnel, spleenectomy, [place] cataracts, left thumb trigger finger Past Anesthesia/Blood Transfusion Reactions: No Reported Reaction Past Psychological History: No Psychological Hx Reported Smoking Status: Former smoker Past Alcohol Use History: Daily Past Drug Use History: None Reported - Past Family History Brother(s) Family Medical History: Cancer Additional Family Medical History / Comment(s): colon Sister(s) Family Medical History: Cancer Additional Family Medical History / Comment(s): uterine General Exam Limitations: no limitations General appearance: alert, in no apparent distress Head exam: Present: atraumatic Eye exam: Present: normal appearance, PERRL Neck exam: Present: normal inspection Respiratory exam: Present: normal lung sounds bilaterally Cardiovascular Exam: Present: regular rate, normal rhythm Expanded Peripheral pulses: 2+: Posterior Tibialis (R), Posterior Tibialis (L) GI/Abdominal exam: Present: soft. Absent: tenderness, pulsatile mass Extremities exam: Present: normal inspection. Absent: pedal edema, calf tenderness Back exam: Present: tenderness (Near the right posterior superior iliac) Neurological exam: Present: alert, oriented X3, CN II-XII intact, normal gait. Absent: motor sensory deficit Psychiatric exam: Present: normal affect, normal mood Skin exam: Present: normal color Course Vital Signs 09/04/23 09/04/23 09/04/23 07:33 08:38 09:44 Temperature 97.7 F Pulse Rate 80 60 Respiratory 18 18 Rate Blood Pressure 116/67 100/72 Blood Pressure 88/63 [Sitting] Blood Pressure 126/77 [Supine] O2 Sat by Pulse 95 96 Oximetry 09/04/23 09/04/23 10:07 11:06 Temperature Pulse Rate 69 Respiratory 18 Rate Blood Pressure 96/67 Blood Pressure 137/83 [Sitting] Blood Pressure 142/82 [Supine] O2 Sat by Pulse 98 Oximetry EKG Findings - EKG Results: EKG: interpreted by ERMD, sinus rhythm, normal axis, normal QRS, normal ST/T Medical Decision Making - Medical Decision Making Was pt. sent in by a medical professional or institution (Dr. PA, INSULATION INSPECTOR, urgent care, hospital, or correction...) When possible be specific @ -No Did you speak to anyone other than the patient for history (EMS, parent, family, police, friend...)? What history was obtained from this source @ - is present and helps provide history including history of some chronic back problems Did you review nursing and triage notes (agree or disagree)? Why? @ -I reviewed and agree with nursing and triage notes Were old charts reviewed (outside hosp., previous admission, EMS record, old EKG, old radiological studies, urgent care reports/EKG's, correction records)? Report findings @ -Previous labs reviewed Differential Diagnosis (chest pain, altered mental status, abdominal pain women, abdominal pain men, vaginal bleeding, weakness, fever, dyspnea, syncope, headache, dizziness, GI bleed, back pain, seizure, CVA, palpatations, mental health, musculoskeletal)? @ -Differential Back Pain: Strain, zoster, cauda equina syndrome, epidural abscess, vertebral osteomyelit is, discitis, fracture, subluxation, disc herniation, DJD, spinal stenosis, dissection, AAA, pancreatitis, peptic ulcer disease, pyelonephritis, kidney stone, this is not meant to be an all-inclusive list. EKG interpreted by me (3pts min.). @ -As above X-rays interpreted by me (1pt min.). @ -Lumbar and pelvis x-rays reveal no acute abnormality CT interpreted by me (1pt min.). @ -None done U/S interpreted by me (1pt. min.). @ -None done What testing was considered but not performed or refused? (CT, X-rays, U/S, labs)? Why? @ -None What meds were considered but not given or refused? Why? @ -None Did you discuss the management of the patient with other professionals (professionals i.e. , PA, INSULATION INSPECTOR, lab, RT, psych nurse, 7th grade social studies teacher, model photographers', teacher, attendance officer, case maker)? Give summary @ -No Was smoking cessation discussed for >3mins.? @ -No Was critical care preformed (if so, how long)? @ -No Were there social determinants of health that impacted care today? How? (Home lessness, low income, unemployed, alcoholism, drug addiction, transportation, low edu. Level, literacy, decrease access to med. care, alf, rehab)? @ -No Was there de-escalation of care discussed even if they declined (Discuss DNR or withdrawal of care, Hospice)? DNR status @ -No What co-morbidities impacted this encounter? (DM, HTN, Smoking, COPD, CAD, Cancer, CVA, ARF, Chemo, Hep., AIDS, mental health diagnosis, sleep apnea, morbid obesity)? @ -None Was patient admitted / discharged? Hospital course, mention meds given and route, prescriptions, significant lab abnormalities, going to OR and other pertinent info. @ -Patient presents with back pain with history of chronic back pain. Patient also has lightheadedness. Blood pressure was low. Patient had mild dehydration based on blood work. Patient improved with IV fluids and is feeling better on reevaluation. Patient will be discharged and advised to keep a close eye on his blood pressure and close follow-up Undiagnosed new problem with uncertain prognosis? @ -No Drug Therapy requiring intensive monitoring for toxicity (Heparin, Nitro, Insulin, Cardizem)? @ -No Were any procedures done? @ -No Diagnosis/symptom? @ -Back pain, orthostatic hypotension Acute, or Chronic, or Acute on Chronic? @ -Acute on chronic, acute Uncomplicated (without systemic symptoms) or Complicated (systemic symptoms)? @ -Default Side effects of treatment? @ -No Exacerbation, Progression, or Severe Exacerbation? @ -No Poses a threat to life or bodily function? How? (Chest pain, USA, MS, pneumonia, PE, COPD, DKA, ARF, appy, cholecystitis, CVA, Diverticulitis, Homicidal, Suicidal, threat to staff... and all critical care pts) @ -No - Lab Data Result diagrams: 09/04/23 07:56 09/04/23 07:56 Lab Results 09/04/23 09/04/23 Range/Units 07:56 07:56 WBC 12.9 H (3.8-10.6) k/uL RBC 5.02 (4.30-5.90) m/uL Hgb 16.6 (13.0-17.5) gm/dL Hct 48.8 (39.0-53.0) % MCV 97.3 (80.0-100.0) fL MCH 33.1 (25.0-35.0) pg MCHC 34.0 (31.0-37.0) g/dL RDW 14.4 (11.5-15.5) % Plt Count 323 (150-450) k/uL MPV 8.0 Neutrophils % 76 % Lymphocytes % 16 % Monocytes % 6 % Eosinophils % 2 % Basophils % 0 % Neutrophils # 9.8 H (1.3-7.7) k/uL Lymphocytes # 2.0 (1.0-4.8) k/uL Monocytes # 0.8 (0-1.0) k/uL Eosinophils # 0.2 (0-0.7) k/uL Basophils # 0.0 (0-0.2) k/uL Sodium 138 (137-145) mmol/L Potassium 3.4 L (3.5-5.1) mmol/L Chloride 103 (98-107) mmol/L Carbon Dioxide 25 (22-30) mmol/L Anion Gap 10 mmol/L BUN 32 H (9-20) mg/dL Creatinine 1.13 (0.66-1.25) mg/dL Est GFR (CKD-EPI)AfAm 76 (>60 ml/min/1.73 sqM) Est GFR (CKD-EPI)NonAf 65 (>60 ml/min/1.73 sqM) Glucose 116 H (74-99) mg/dL Calcium 8.5 (8.4-10.2) mg/dL Magnesium 2.2 (1.6-2.3) mg/dL Total Bilirubin 0.5 (0.2-1.3) mg/dL AST 28 (17-59) U/L ALT 29 (4-49) U/L Alkaline Phosphatase 56 (38-126) U/L Total Protein 6.0 L (6.3-8.2) g/dL Albumin 3.5 (3.5-5.0) g/dL Disposition Clinical Impression: Back pain, Orthostatic hypotension Disposition: HOME SELF-CARE Condition: Stable Instructions (If sedation given, give patient instructions): Back Pain (ED) Additional Instructions: Please do keep a close eye on your blood pressure, and monitor 3-4 times daily and discuss this with your primary care physician. Please do follow-up with your primary care physician in the next day or 2 for recheck. Return for low blood pressure, increased lightheadedness, increased back pain, worsening or changing symptoms or any other concerns. Is patient prescribed a controlled substance at d/c from ED?: No Referrals: Prashant Baez DO [Primary Care Provider] - 1-2 days Time of Disposition: 11:31
[2023-09-04] MEDS: HYDROmorphone 1 MG/ML 1 ML SYRINGE IVP STA (08:06)
[2023-09-04 08:08] LABS: Basophils % (A) 0 %; Eosinophils # (A) 0.2 k/uL (0-0.7); Eosinophils % (A) 2 %; HCT 48.8 % (39.0-53.0); HGB 16.6 gm/dL (13.0-17.5); Lymphocytes % (A) 16 %; MCH 33.1 pg (25.0-35.0); MCV 97.3 fL (80.0-100.0); Monocytes # (A) 0.8 k/uL (0-1.0); Monocytes % (A) 6 %; Neutrophils # (A) 9.8 k/uL (1.3-7.7); Neutrophils % (A) 76 %; Platelet Count 323 k/uL (150-450); RBC 5.02 m/uL (4.30-5.90); RDW 14.4 % (11.5-15.5); WBC 12.9 k/uL (3.8-10.6)
[2023-09-04] MEDS: SODIUM CHLORIDE 0.9% 1,000 ML IV STA (08:09)
[2023-09-04] MEDS: SODIUM CHLORIDE 0.9% 500 ML 500 ML IV ONE (08:17)
[2023-09-04 08:27] LABS: ALT 29 U/L (4-49); AST 28 U/L (17-59); African American GFR (CKD) 76 (>60 ml/min/1.73 sqM); Albumin 3.5 g/dL (3.5-5.0); Alkaline Phosphatase 56 U/L (38-126); Anion Gap 10 mmol/L; Blood Urea Nitrogen 32 mg/dL (9-20); Calcium 8.5 mg/dL (8.4-10.2); Carbon Dioxide 25 mmol/L (22-30); Chloride 103 mmol/L (98-107); Glucose 116 mg/dL (74-99); Magnesium 2.2 mg/dL (1.6-2.3); Non-African American GFR(CKD) 65 (>60 ml/min/1.73 sqM); Potassium 3.4 mmol/L (3.5-5.1); Sodium 138 mmol/L (137-145); Total Bilirubin 0.5 mg/dL (0.2-1.3)
--- NOTE | 2023-09-04 08:34 | XR ---
EXAMINATION TYPE: XR pelvis AP view DATE OF EXAM: 09/04/2023 COMPARISON: NONE HISTORY: Pain The osseous structures are intact and the joint spaces are preserved. No acute fracture is seen. Vi sualized bowel gas pattern is nonspecific. Degenerative change lower lumbar spine. Surgical clips in the lower abdomen. Calcifications in the perineum. Vascular calcifications. There is mild bilateral hip arthropathy. IMPRESSION: 1. Moderate bilateral hip arthropathy correlate for femoral acetabular impingement. 2. Severe degenerative disc disease lower lumbar spine. Correlate for prior laminectomy..
--- NOTE | 2023-09-04 08:35 | XR ---
EXAM TYPE: LUMBAR SPINE X RAY SERIES COMPARISON: NONE HISTORY: Pain TECHNIQUE: 4 views are submitted. FINDINGS: Alignment is anatomic. The pedicles are intact. The transverse processes are intact. There is a mu ltilevel degenerative disc disease with multilevel severe facet arthropathy, posterior spondylosis an d suspected foraminal encroachment. Retrolisthesis at multiple levels grade 1. Vascular calcification s. Previous laminectomy changes seen. Additional postsurgical changes seen in the abdomen. SI joints patent. Sclerotic changes of the segments of most likely related to discogenic marrow changes. IMPRESSION: 1. Postoperative change with severe multilevel degenerative disc disease, facet arthropathy and suspe cted multilevel foraminal encroachment. Recommend follow-up MRI.
[2023-09-04] MEDS: SODIUM CHLORIDE 0.9% 500 ML 500 ML IV STA (09:19)
[2023-09-04 11:49] LABS: Appearance,Urine Clear (Clear); Bilirubin,Urine Negative (Negative); Blood,Urine Negative (Negative); Color,Urine Yellow; Glucose,Urine (UA) Negative (Negative); Ketones,Urine Negative (Negative); Leukocyte Esterase,Urine Negative (Negative); Nitrite,Urine Negative (Negative); Protein,Urine Trace (Negative); Specific Gravity,Urine 1.021 (1.001-1.035); Urobilinogen,Urine <2.0 mg/dL (<2.0)
[2023-09-04 12:16] VITALS: BP 149/86; PULSE 62; RESP 15; TEMP 98.2
== END 2023-09-04 11:57 | disposition home or self-care (01) ==
LOC: EC 07:32
DX: S39.92XA Unspecified injury of lower back, initial encounter (principal); I95.1 Orthostatic hypotension; E86.0 Dehydration; Z88.1 Allergy status to other antibiotic agents; Z87.891 Personal history of nicotine dependence; X50.9XXA Other and unspecified overexertion or strenuous movements or postures, initial encounter
CPT/HCPCS: 36415; 93005; 80053; 83735; 85025; 81003; 72100; 72170; 99284; 96374; 96361 ×4; J1170

== ENCOUNTER → 2023-10-08 | Outpatient (CLI) | payer MEDICARE ==
--- NOTE | 2023-10-08 09:13 | MR ---
EXAMINATION TYPE: MR lumbar spine wo con DATE OF EXAM: 10/08/2023 COMPARISON: HISTORY: Low back pain that radiates down right leg CONTRAST: 0 mL intravenous . TECHNIQUE: Multiplanar, multisequence images of the lumbar spine were acquired. FINDINGS: L5-S1: There is laminectomy at L5-S1. Grade 1 retrolisthesis of L5 posterior S1 may be present. Moder ate size right paracentral disc herniation appears to be present. Correlate with left S1 radicular sy mptoms. Disc space narrowing is present at this level. Moderate right and severe left foraminal steno sis is present. L4-L5: Broad-based disc bulge is present with moderate anterior thecal sac compression. Facet hypertr ophy is present. Some mild spinal canal narrowing may be present. L3-L4: There is narrowing of the disc height at this level. No focal disc herniation or significant d isc bulge. Moderate right and left foraminal narrowing is present. L2-L3: Disc uncovering is present with a grade 1 retrolisthesis of L2 posteriorly on L3. No spinal ca nal stenosis is present. Mild bilateral foraminal narrowing is present. L1-L2: Broad-based disc bulge is present with moderate anterior thecal sac compression. Ligamentum fl avum laxity is present. Spinal canal stenosis appears to be present. T12-L1: No significant disc bulge or disc herniation. No spinal canal stenosis. No foraminal stenos is. . IMPRESSION: 1. Spinal canal stenosis L1-2. 2. Retrolisthesis of L2 posterior L3 and retrolisthesis of L5 posterior S1. 3. Broad-based disc bulge with moderate anterior thecal sac impression possible mild spinal canal yanira rowing at L4-5. 4. Broad based disc bulge L5-S1 without spinal canal stenosis. However, contact and displacement of t he S1 nerve roots may be present and there is severe left foraminal stenosis. Correlate with radicula r symptoms.
[2023-10-08 14:44] LABS: BUN/Creat Ratio 20.23 Ratio (12.00-20.00); Blood Urea Nitrogen 26.3 mg/dL (9.0-27.0); Calcium 9.2 mg/dL (8.7-10.3); Carbon Dioxide 22.2 mmol/L (21.6-31.8); Chloride 104 mmol/L (96-109); Glucose 97 mg/dL (70-110); Potassium 4.4 mmol/L (3.5-5.5); Sodium 139 mmol/L (135-145)
== END | disposition home or self-care (01) ==
LOC: RADMRIMAIN 08:00
PROVIDERS: ATTEND Family Medicine
DX: M51.37 Other intervertebral disc degeneration, lumbosacral region (principal); M43.16 Spondylolisthesis, lumbar region; M48.061 Spinal stenosis, lumbar region without neurogenic claudication; E87.6 Hypokalemia
CPT/HCPCS: 36415; 72148; 80048

== ENCOUNTER → 2023-11-12 | Outpatient (CLI) | payer MEDICARE ==
[2023-11-12 09:56] VITALS: BP 129/83; PULSE 71; RESP 16
--- NOTE | 2023-11-12 14:31 | P.PAINPG ---
PQRS Measure Charge Sheet Comment: HISTORY OF PRESENT ILLNESS: A 73 yr old male as a referral from Dr Burciaga presents today w severe and chronic LBP > 1 yr secondary to post laminectomy syndrome for evaluation. Pt states pain level is provoked at 9 /10 in intensity, constant, localized in the lumbar spine, predominantly axial, dull in character w occasional shooting pain towards the R hip and the BLEs. Pain is provoked by walking and over activity. Pain is alleviated by PT yrs ago, physician guided home exercises/ stretches every other day weekly since Aug 2023, heat, use of a TENS unit every other day at home since Aug 2023, medications ([place], Advil), repositioning and rest . Oswestry axial pain score at 36. PMH: OA, aFib, NHL (1973), COPD, Fibromyalgia, Hearing Disorder / Deafness, Hyperlipidemia, Hypertension, Eczema, BPH, Macular Degeneration, [place] PSH: L2-L3 Laminectomy/ Decompression x3, L Carpal Tunnel, Cardiac Catheterization (2019), Splenectomy, BL Cataracts, L Thumb Trigger Finger, Sinus Surgery SH: Former tobacco user, No ETOH use, No illicit drug use FH: Bro- Colon CA. Sis- Uterine CA All: See list Meds: See list REVIEW OF ORGAN SYSTEMS: CONSTITUTIONAL: No fevers or chills. No recent weight loss. NEUROLOGICAL: + numbness and tingling along the distal extremities. No seizure disorders or headaches. MUSCULOSKELETAL: + pain PSYCHIATRIC: Denies current depression or suicidal thoughts. Physical Examinations : Constitutional : Cooperative , not in acute distress . Neurologic : Cranial nerve II to XII intact. No focal neurological deficits. Psychiatric : alert & oriented x 3. Matching mood & appropriate affect. Judgment & insight intact. Musculoskeletal : Cervical Spine Motor strength in the deltoid and biceps: Normal right side. Normal Left side Motor strength biceps and the wrist extensors: Normal right side . Normal left side Motor strength in the triceps muscle: Normal right side. Normal left side Deep tendon reflexes: Normal at the biceps. Normal at Brachioradialis. Normal at triceps Vertebral body tenderness to deep palpation over Cervical facet loading test: positive bilaterally Spurling test: positive bilaterally Neck distraction test: positive bilaterally Bradley sign: positive bilaterally Lumbar spine +Well healed incisional scar intact Motor strength lower extremities ,thigh and legs 5/5 Right side , 5/5 Left side Deep tendon reflexes : Normal Knee Jerk. Normal Ankle Jerk Vertebral body tenderness over L1 Z[place]ata Test positive BL L1-L2 R> L Lumbar facet Loading Test: positive Right / positive Left Range of motion of the lumbar spine Flexion 30 degrees, extension 10 degrees Straight Leg Raise test: Left/ Right positive at degrees Andres test: positive right / positive left. Severe tenderness over the Sacroiliac joint on the Right / Left sides Gaenslen test: positive bilaterally Seated flexion test: positive bilaterally. Sacral spine : Severe tenderness over the Sacroiliac joint: right side / left side Range of motion: Flexion of the lumbar spine <60 degrees Range of motion: Extension of the lumbar spine <20 degrees Gaenslen's Test positive Andres test: positive right side / left side Thigh Thrust Test Sacral Thrust Test Imaging: MRI noncontrast of the lumbar spine from 10/08/2023 reviewed Assessment/ Plan : Post laminectomy syndrome Recommendation of LEIGH L1-L2 #1. May need a series of injections for optimal pain relief. Risks, benefits of procedure discussed and patient verbalized understanding. Admits to anti- coagulant use or medical history of diabetes. Protocol for discontinuation/ continuation of medications giovany procedure discussed. All questions answered. I have spent greater than 30 minutes on patient care today. Dr Bobo was available by phone for the evaluation of this patient. The time was used to review the medical records including relevant urine studies and Prescription history (MAPs), review of the available imaging, evaluation and examination of the patient, coordination of care with the medical staff and if applicable referring physicians, as well as creation of the medical record PQRS Narrative: Smoking Status Former smoker Home Medications: Ambulatory Orders Tamsulosin [Flomax] 0.4 mg PO DAILY 05/09/20 Cyclobenzaprine [Flexeril] 10 mg PO DAILY PRN 06/09/20 Tiotropium Br/Olodaterol HCl [Stiolto Respimat Inhal [place]] 2 puff INHALATION RT-DAILY 06/09/20 Diltiazem Oral [Cardizem*] 30 mg PO TID #90 tab 10/29/20 Propafenone [Rythmol] 150 mg PO TID #90 tab 10/29/20 Apixaban [Eliquis] 2.5 mg PO BID 09/04/23 Atorvastatin [Lipitor] 40 mg PO HS 09/04/23 Ergocalciferol [Vitamin D2 (1250 Mcg = 01893 Iu)] 1,250 mcg PO SA 09/04/23 HYDROcodone/APAP 7.5-325MG [[place] 7.5-325] 1 tab PO BID PRN 09/04/23 Loperamide [Imodium] 2 mg PO BID 09/04/23 Losartan Potassium 100 mg PO HS 09/04/23 Naloxone HCl [Narcan] 4 mg NASAL DIRECTED PRN 09/04/23 Nintedanib Esylate [Ofev] 100 mg PO Q12H 09/04/23 Prooptic-Areds2 1 tab PO DAILY 09/04/23 diphenhydrAMINE [Benadryl] 25 mg PO DAILY PRN 09/04/23 lisinopriL 40 mg PO DIRECTED 09/04/23 Controlled Substance Measures - Controlled Substance Measures Is patient prescribed a controlled substance at discharge?: No
== END ==
LOC: PNWHC3 08:44
PROVIDERS: ATTEND Specialist
DX: M51.16 Intervertebral disc disorders with radiculopathy, lumbar region (principal); M96.1 Postlaminectomy syndrome, not elsewhere classified; Z87.891 Personal history of nicotine dependence; Z88.8 Allergy status to other drugs, medicaments and biological substances
CPT/HCPCS: 99211

== ENCOUNTER → 2024-02-03 | Outpatient (CLI) | payer MEDICARE ==
[2024-02-03 08:35] LABS: African American GFR (CKD) 74 (>60 ml/min/1.73 sqM); Blood Urea Nitrogen 20 mg/dL (9-20); Non-African American GFR(CKD) 64 (>60 ml/min/1.73 sqM)
--- NOTE | 2024-02-03 17:46 | CT ---
EXAMINATION TYPE: CT chest without contrast DATE OF EXAM: 02/03/2024 COMPARISON: 09/16/2022 HISTORY: 73-year-old male I72.9, aneurysm TECHNIQUE: There was scanner malfunction and the scan did not perform correctly despite 2 separate in jection attempts with 80 mL Isovue-370 IV contrast. The patient was subsequently scanned after the co ntrast had artery cleared. Coronal/sagittal reconstructions performed. CT DLP: 47mGycm. Automatic exposure control utilized for a dose reduction. FINDINGS: The heart is normal size pericardial effusion. LAD and RCA coronary calcifications are present. At le ast mild aortic valvular calcifications. There is ectasia of the aortic root at 3.8 cm versus 4.0 cm previously. There is mild aneurysm ascending aorta 4.0 cm versus 4.1 cm, previously. Moderate atherosclerotic arch calcifications with conventional branching anatomy. Possible moderate a therosclerotic narrowing at the origin of the left common carotid artery. Possible moderate or severe atherosclerotic narrowing at the origin of the left subclavian artery. Possible severe atherosclerot ic narrowing at the proximal right subclavian artery. Borderline ectasia upper descending thoracic aorta 3.1 cm. Additional mild ectasia lower descending t horacic aorta at 2.7 cm. Borderline caliber main right and left pulmonary arteries measuring up to 2.6 cm may reflect underlyi ng pulmonary arterial hypertension. No thoracic lymphadenopathy by CT size criteria. Biapical pleural-parenchymal scarring. Mild diffuse bronchial wall thickening. Mild subpleural ground glass and reticular change is stable from prior and could represent some underlying interstitial fibr osis or interstitial pneumonitis. No shari consolidation or pleural effusion. Visualized upper abdomen shows no gross abnormality. Bones: DISH lower thoracic spine. IMPRESSION: 1. Stable mild aneurysm ascending aorta 4.0 cm. 2. Moderate apical scarring changes at the aortic arch. Possible moderate or severe stenosis of the o rigin of the left subclavian artery and possible moderate at the origin of the left common carotid ar [place]. Severe axis carotid stenosis suspected at the proximal right subclavian artery. 3. Similar mild interstitial and groundglass change in the subpleural region of the lungs could refle ct some underlying interstitial fibrosis or interstitial pneumonitis such as NSIP or DIP.
== END | disposition home or self-care (01) ==
LOC: RADCTMAIN 07:49
PROVIDERS: ATTEND Internal Medicine Interventional Cardiology
DX: I72.9 Aneurysm of unspecified site
CPT/HCPCS: 36415; 71250; 82565; 84520

== ENCOUNTER → 2024-02-23 | Outpatient (CLI) | payer MEDICARE ==
[2024-02-23 07:23] LABS: African American GFR (CKD) 76 (>60 ml/min/1.73 sqM); Blood Urea Nitrogen 22 mg/dL (9-20); Non-African American GFR(CKD) 66 (>60 ml/min/1.73 sqM)
--- NOTE | 2024-03-01 12:24 | CT ---
EXAMINATION TYPE: CT angio chest DATE OF EXAM: 02/23/2024 COMPARISON: 02/03/2024 HISTORY: Thoracic aortic aneurysm w/o rupture. CT DLP: 847 mGycm Automated exposure control for dose reduction was used. Contrast: None Technique: Axial images 2 mm thick sections. Reconstructed images in the coronal and sagittal plane. This compared to 01/26/2024 exam. FINDINGS: Ascending thoracic aorta and main pulmonary artery is 4.0 cm. Aortic root is 3.7 cm. Transverse dimen keri of the thoracic aorta is 3.1 cm. Descending thoracic aorta tapers to its visualized course of th e diaphragm which measures 2.4 cm. Celiac axis and superior mesenteric arteries appear normal. Renal arteries appear normal there is vascular calcification within the aorta. No dissection is identified. Mild pulmonary fibrosis periphery of the lung macdonald. No new infiltrates or nodules are evident. No s uspicious hilar or mediastinal adenopathy. Few scattered small axillary lymph nodes present. IMPRESSION: 1. STABLE ASCENDING THORACIC AORTIC ANEURYSM 4.0 CM. [facility], , 03/01/2024 12:21 PM
== END | disposition home or self-care (01) ==
LOC: RADCTMAIN 06:47
PROVIDERS: ATTEND Internal Medicine Interventional Cardiology
DX: I71.21 Aneurysm of the ascending aorta, without rupture (principal)
CPT/HCPCS: 82565; 84520; 36415; Q9967

== ENCOUNTER 2024-06-07 08:09 | Emergency (ER) | payer MEDICARE ==
--- NOTE | 2024-06-07 08:39 | ED ---
General Adult HPI - General Chief complaint: Extremity Problem,Nontraumatic Stated complaint: left arm issue Time Seen by Provider: 06/07/24 08:16 Source: patient Mode of arrival: ambulatory Limitations: no limitations - History of Present Illness Initial comments: Dictation was produced using [employer] dictation software. please excuse any grammatical, word or spelling errors. Chief Complaint: 74-year-old male multiple comorbidities presents to the emergency department requesting left upper extremity ultrasound History of Present Illness: Patient is 75-year-old with multiple comorbidities presents to the emergency department requesting ultrasound of the left upper extremity. Patient states that 10 days ago he was at his primary care office where he had an x-ray performed for several days of left medial forearm pain. States that he feels like it is on the edge of the bone. States that if his symptoms not improving that he should get an ultrasound. Denies any fever, chills or night sweats. No swelling to the arm. Denies any weakness or loss of function to the left upper extremity. The ROS documented in this emergency department record has been reviewed and confirmed by me. Those systems with pertinent positive or negative responses have been documented in the HPI. All other systems are other negative and/or noncontributory. - Related Data Home Medications Medication Instructions Recorded Confirmed Tamsulosin [Flomax] 0.4 mg PO DAILY 05/09/20 11/12/23 Cyclobenzaprine [Flexeril] 10 mg PO DAILY PRN 06/09/20 11/12/23 Tiotropium Br/Olodaterol HCl 2 puff INHALATION RT-DAILY 06/09/20 11/12/23 [Stiolto Respimat Inhal [place]] Apixaban [Eliquis] 2.5 mg PO BID 09/04/23 11/12/23 Atorvastatin [Lipitor] 40 mg PO HS 09/04/23 11/12/23 Ergocalciferol [Vitamin D2 (1250 1,250 mcg PO SA 09/04/23 11/12/23 Mcg = 80628 Iu)] HYDROcodone/APAP 7.5-325MG [[place] 1 tab PO BID PRN 09/04/23 11/12/23 7.5-325] Loperamide [Imodium] 2 mg PO BID 09/04/23 11/12/23 Losartan Potassium 100 mg PO HS 09/04/23 11/12/23 Naloxone HCl [Narcan] 4 mg NASAL DIRECTED PRN 09/04/23 11/12/23 Nintedanib Esylate [Ofev] 100 mg PO Q12H 09/04/23 11/12/23 Prooptic-Areds2 1 tab PO DAILY 09/04/23 11/12/23 diphenhydrAMINE [Benadryl] 25 mg PO DAILY PRN 09/04/23 11/12/23 lisinopriL 40 mg PO DIRECTED 09/04/23 11/12/23 Previous Rx's Medication Instructions Recorded Diltiazem Oral [Cardizem*] 30 mg PO TID #90 tab 10/29/20 Propafenone [Rythmol] 150 mg PO TID #90 tab 10/29/20 Allergies Allergy/AdvReac Type Severity Reaction Status Date / Time cefazolin Allergy Rash/Hives Verified 06/07/24 08:14 gabapentin AdvReac tinnitus Verified 06/07/24 08:14 Review of Systems ROS Statement: Those systems with pertinent positive or pertinent negative responses have been documented in the HPI. ROS Other: All systems not noted in ROS Statement are negative. 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 cluster migraines, eczema, History of Any Multi-Drug Resistant Organisms: None Reported Past Surgical History: Back Surgery, Heart Catheterization, Orthopedic Surgery Additional Past Surgical History / Comment(s): lumbar laminectomy with decompression L2-3. lumbar surgery x2, left carpal tunnel, spleenectomy, gunnar cataracts, left thumb trigger finger Past Anesthesia/Blood Transfusion Reactions: No Reported Reaction Past Psychological History: No Psychological Hx Reported Smoking Status: Former smoker Past Alcohol Use History: Daily Past Drug Use History: None Reported - Past Family History Brother(s) Family Medical History: Cancer Additional Family Medical History / Comment(s): colon Sister(s) Family Medical History: Cancer Additional Family Medical History / Comment(s): uterine General Exam - General Exam Comments Initial Comments: General: Well-appearing, nontoxic, no acute distress. Head: Normocephalic, atraumatic Eyes: PERRLA, EOMI ENT: Airway patent Chest: Nonlabored breathing Skin: No visual rash, normal skin tone Neuro: Alert and oriented 3 Musculoskeletal: No gross abnormalities Left upper extremity: No gross abnormalities, palpatory tenderness to the left medial forearm Limitations: no limitations Course Vital Signs 06/07/24 08:14 Temperature 97.7 F Pulse Rate 80 Respiratory 20 Rate Blood Pressure 180/92 O2 Sat by Pulse 95 Oximetry Medical Decision Making - Medical Decision Making Was pt. sent in by a medical professional or institution (, PA, WORLD HISTORY TEACHER, urgent care, hospital, or halfway...) When possible be specific @ -No Did you speak to anyone other than the patient for history (EMS, parent, family, police, friend...)? What history was obtained from this source @ -No Did you review nursing and triage notes (agree or disagree)? Why? @ -I reviewed and agree with nursing and triage notes Were old charts reviewed (outside hosp., previous admission, EMS record, old EKG, old radiological studies, urgent care reports/EKG's, halfway records)? Report findings @ -No old charts were reviewed Differential Diagnosis (chest pain, altered mental status, abdominal pain women, abdominal pain men, vaginal bleeding, musculoskeletal, weakness, fever, dyspnea, syncope, headache, dizziness, GI bleed, back pain, seizure, CVA, palpatations, mental health)? @ -DVT, cellulitis, thrombophlebitis EKG interpreted by me (3pts min.). @ -None done X-rays interpreted by me (1pt min.). @ -None done CT interpreted by me (1pt min.). @ -None done U/S interpreted by me (1pt. min.). @ -Ultrasound shows thrombophlebitis What testing was considered but not performed or refused? (CT, X-rays, U/S, labs)? Why? @ -None What meds were considered but not given or refused? Why? @ -None Was smoking cessation discussed for >3mins.? @ -No Were there social determinants of health that impacted care today? How? (Homelessness, low income, unemployed, alcoholism, drug addiction, transportation, low edu. Level, literacy, decrease access to med. care, prison, rehab)? @ -No Was there de-escalation of care discussed even if they declined (Discuss DNR or withdrawal of care, Hospice)? DNR status @ -No What co-morbidities impacted this encounter? (DM, HTN, Smoking, COPD, CAD, Cancer, CVA, ARF, Chemo, Hep., AIDS, mental health diagnosis, sleep apnea, morbid obesity)? @ -None Was patient admitted / discharged? Hospital course, mention meds given and route, prescriptions, significant lab abnormalities, going to OR and other pertinent info. @ -74-year-old male with left forearm pain. Sent here by PCP for ultrasound. Vital signs stable. Ultrasound shows thrombosed varicosity. Patient stable discharge advised follow-up with PCP Did you discuss the management of the patient with other professionals (professionals i.e. , PA, WORLD HISTORY TEACHER, lab, RT, psych nurse, social worker school, engagement liaison, teacher, general service officer, briefcase sewer)? Give summary @ -No Was critical care preformed (if so, how long)? @ -No Undiagnosed new problem with uncertain prognosis? @ -No Drug Therapy requiring intensive monitoring for toxicity (Heparin, Nitro, Insulin, Cardizem)? @ -No Were any procedures done? @ -No Diagnosis/symptom? Acute, or Chronic, or Acute on Chronic? Uncomplicated (without systemic symptoms) or Complicated (systemic symptoms)? @ -Thrombosed varicose vein Side effects of treatment? @ -No Exacerbation, Progression, or Severe Exacerbation? @ -No Poses a threat to life or bodily function? How? (Chest pain, [place], [place], pneumonia, PE, COPD, DKA, ARF, appy, cholecystitis, CVA, Diverticulitis, Homicidal, Suicidal, threat to staff... and all critical care pts) @ -No Disposition Clinical Impression: Superficial vein thrombosis Disposition: HOME SELF-CARE Condition: Good Instructions (If sedation given, give patient instructions): Superficial Thrombophlebitis (ED) Is patient prescribed a controlled substance at d/c from ED?: No Referrals: Prashant Baez DO [Primary Care Provider] - 1-2 days Time of Disposition: 09:43
--- NOTE | 2024-06-07 09:35 | US ---
EXAMINATION TYPE: US venous doppler duplex UE LT DATE OF EXAM: 06/07/2024 COMPARISON: NONE CLINICAL INDICATION: Male, 74 years old with history of pain; left lateral arm tiny palpable with carlitos n when pressure is applied. On Eliquis, no h/o DVT, no swelling or redness TECHNIQUE: Grayscale, color Doppler and spectral Doppler imaging of the upper extremity. Grayscale, color doppler, spectral doppler imaging performed of the deep veins of the upper extremities. SIDE PERFORMED: Left FINDINGS: Left Arm: Negative for DVT. At AO on lateral forearm there appears to be a thrombosed varicose ve in. IMPRESSION: 1. No evidence for DVT within the left upper extremity. 2. Along the lateral forearm at the area of concern, there appears to be a tiny thrombosed superficia l varicosity. [facility], , 06/07/2024 9:33 AM
[2024-06-07 09:50] VITALS: BP 169/87; PULSE 77; RESP 18; TEMP 97.8
== END 2024-06-07 09:53 | disposition home or self-care (01) ==
LOC: EC 08:09
DX: I82.812 Embolism and thrombosis of superficial veins of left lower extremity (principal); Z87.891 Personal history of nicotine dependence; Z88.1 Allergy status to other antibiotic agents; Z88.8 Allergy status to other drugs, medicaments and biological substances
CPT/HCPCS: 99283

== ENCOUNTER 2024-09-27 20:08 | Emergency (ER) | payer MEDICARE ==
[2024-09-27 20:16] VITALS: TEMP 97.8
--- NOTE | 2024-09-27 21:26 | ED ---
Chest Pain HPI - General Source: patient, family, RN notes reviewed Mode of arrival: wheelchair Limitations: no limitations <Alex Gomez - Last Filed: 09/27/24 21:23> <Sigifredo Hdz - Last Filed: 09/28/24 00:03> - General Chief Complaint: Chest Pain Stated Complaint: Chest Pain/SOB Time Seen by Provider: 09/27/24 20:25 - History of Present Illness Initial Comments: Quick note: This is a 74-year-old male with history including A-fib and heart catheterization presenting for left-sided chest pain (10/15) x 1 hour. Patient states pain is intermittent, radiating to jaw and left elbow. Endorses sensation of palpitations and "skipping beats". Endorses associated SOB, dizziness/lightheadedness, low blood pressure and weakness. Patient states he had a nuclear echocardiogram performed 3 months ago. States he currently takes Eliquis. Patient states he recently had his propafenone and Cardizem dosage changed by Dr. Sherman. (Alex Gomez) Dictation was produced using [employer] dictation software. please excuse any grammatical, word or spelling errors. Chief Complaint: 74-year-old male with history of A-fib presents to the ER with palpitations and chest pain History of Present Illness: Patient 74-year-old male with extensive cardiac history including A-fib. Takes anticoagulation medications. Patient states that today he had what he describes as severe palpitations that lasted for several minutes. States that he had a pressure in his substernal chest. He states it was nonradiating. He did feel slightly dizzy and presyncopal. Denies any symptoms at the bedside. The ROS documented in this emergency department record has been reviewed and confirmed by me. Those systems with pertinent positive or negative responses have been documented in the HPI. All other systems are other negative and/or noncontributory. (Sigifredo Hdz) - Related Data Home Medications Medication Instructions Recorded Confirmed Tamsulosin [Flomax] 0.4 mg PO DAILY 05/09/20 11/12/23 Cyclobenzaprine [Flexeril] 10 mg PO DAILY PRN 06/09/20 11/12/23 Tiotropium Br/Olodaterol HCl 2 puff INHALATION RT-DAILY 06/09/20 11/12/23 [Stiolto Respimat Inhal [place]] Apixaban [Eliquis] 2.5 mg PO BID 09/04/23 11/12/23 Atorvastatin [Lipitor] 40 mg PO HS 09/04/23 11/12/23 Ergocalciferol [Vitamin D2 (1250 1,250 mcg PO SA 09/04/23 11/12/23 Mcg = 34210 Iu)] HYDROcodone/APAP 7.5-325MG [[place] 1 tab PO BID PRN 09/04/23 11/12/23 7.5-325] Loperamide [Imodium] 2 mg PO BID 09/04/23 11/12/23 Losartan Potassium 100 mg PO HS 09/04/23 11/12/23 Naloxone HCl [Narcan] 4 mg NASAL DIRECTED PRN 09/04/23 11/12/23 Nintedanib Esylate [Ofev] 100 mg PO Q12H 09/04/23 11/12/23 Prooptic-Areds2 1 tab PO DAILY 09/04/23 11/12/23 diphenhydrAMINE [Benadryl] 25 mg PO DAILY PRN 09/04/23 11/12/23 lisinopriL 40 mg PO DIRECTED 09/04/23 11/12/23 Previous Rx's Medication Instructions Recorded Diltiazem Oral [Cardizem*] 30 mg PO TID #90 tab 10/29/20 Propafenone [Rythmol] 150 mg PO TID #90 tab 10/29/20 Allergies Allergy/AdvReac Type Severity Reaction Status Date / Time cefazolin Allergy Rash/Hives Verified 09/27/24 20:16 gabapentin AdvReac tinnitus Verified 09/27/24 20:16 Review of Systems ROS Other: All systems not noted in ROS Statement are negative. <Alex Gomez - Last Filed: 09/27/24 21:23> ROS Other: All systems not noted in ROS Statement are negative. <Sigifredo Hdz - Last Filed: 09/28/24 00:03> ROS Statement: Those systems with pertinent positive or pertinent negative responses have been documented in the HPI. 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 cluster migraines, eczema, History of Any Multi-Drug Resistant Organisms: None Reported Past Surgical History: Back Surgery, Heart Catheterization, Orthopedic Surgery Additional Past Surgical History / Comment(s): lumbar laminectomy with decompression L2-3. lumbar surgery x2, left carpal tunnel, spleenectomy, gunnar cataracts, left thumb trigger finger Past Anesthesia/Blood Transfusion Reactions: No Reported Reaction Past Psychological History: No Psychological Hx Reported Smoking Status: Former smoker Past Alcohol Use History: Daily Past Drug Use History: None Reported - Past Family History Brother(s) Family Medical History: Cancer Additional Family Medical History / Comment(s): colon Sister(s) Family Medical History: Cancer Additional Family Medical History / Comment(s): uterine <Alex Gomez - Last Filed: 09/27/24 21:23> General Exam Limitations: no limitations <Alex Gomez - Last Filed: 09/27/24 21:23> <Sigifredo Hdz - Last Filed: 09/28/24 00:03> - General Exam Comments Initial Comments: Visual Physical Exam Vital signs reviewed General: Well-appearing, nontoxic, no acute distress. Head: Normocephalic, atraumatic Eyes: PERRLA, EOMI ENT: Airway patent Chest: Nonlabored breathing Skin: No visual rash, normal skin tone Neuro: Alert and oriented 3 Musculoskeletal: No gross abnormalities (Alex Gomez) PHYSICAL EXAM: General Impression: Alert and oriented x3, not in acute distress HEENT: Normocephalic atraumatic, extra-ocular movements intact, pupils equal and reactive to light bilaterally, mucous membranes moist. Cardiovascular: Irregular pulse Chest: Able to complete full sentences, no retractions, no tachypnea Abdomen: abdomen soft, non-tender, non-distended, no organomegaly Musculoskeletal: Pulses present and equal in all extremities, no peripheral edema Motor: no focal deficits noted Neurological: CN II-XII grossly intact, no focal motor or sensory deficits noted Skin: Intact with no visualized rashes Psych: Normal affect and mood (Sigifredo Hdz) Course Vital Signs 09/27/24 09/27/24 09/27/24 20:13 21:57 23:58 Temperature 97.8 F Pulse Rate 67 109 H Respiratory 18 17 18 Rate Blood Pressure 114/66 160/111 O2 Sat by Pulse 96 100 Oximetry Chest Pain MDM <Alex Gomez - Last Filed: 09/27/24 21:23> <Sigifredo Hdz - Last Filed: 09/28/24 00:03> - MDM I completed the quick note portion of this chart signed NIXON Bishop (Alex Gomez) Was pt. sent in by a medical professional or institution ([facility]avis, TREATMENT SUPERVISOR, urgent care, hospital, or skilled nursing...) When possible be specific @ -No Did you speak to anyone other than the patient for history (EMS, parent, family, police, friend...)? What history was obtained from this source @ -No Did you review nursing and triage notes (agree or disagree)? Why? @ -I reviewed and agree with nursing and triage notes Were old charts reviewed (outside hosp., previous admission, EMS record, old EKG, old radiological studies, urgent care reports/EKG's, skilled nursing records)? Report findings @ -No old charts were reviewed Differential Diagnosis (chest pain, altered mental status, abdominal pain women, abdominal pain men, vaginal bleeding, musculoskeletal, weakness, fever, dyspnea, syncope, headache, dizziness, GI bleed, back pain, seizure, CVA, palp atations, mental health)? @ - Differential Palpitations: Ventricular arrhythmias, atrial arrhythmias, myocardial infarction, anemia, thyrotoxicosis, electrolyte imbalance, hypokalemia, pulmonary embolism, pulmonary disease, drugs, alcohol, anxiety, stress.... This is not meant to be an all-inclusive list. EKG interpreted by me (3pts min.). @ -See above X-rays interpreted by me (1pt min.). @ -Chest x-ray shows no acute processes CT interpreted by me (1pt min.). @ -None done U/S interpreted by me (1pt. min.). @ -None done What testing was considered but not performed or refused? (CT, X-rays, U/S, labs)? Why? @ -None What meds were considered but not given or refused? Why? @ -None Was smoking cessation discussed for >3mins.? @ -No Were there social determinants of health that impacted care today? How? (Homelessness, low income, unemployed, alcoholism, drug addiction, transportation, low edu. Level, literacy, decrease access to med. care, alf, rehab)? @ -No Was there de-escalation of care discussed even if they declined (Discuss DNR or withdrawal of care, Hospice)? DNR status @ -No What co-morbidities impacted this encounter? (DM, HTN, Smoking, COPD, CAD, Cancer, CVA, ARF, Chemo, Hep., AIDS, mental health diagnosis, sleep apnea, morbid obesity)? @ -None Was patient admitted / discharged? Hospital course, mention meds given and route, prescriptions, significant lab abnormalities, going to OR and other pertinent info. @ -74-year-old male presents to the emergency department for palpitations associated with chest pain. History of A-fib. Vital signs are stable. EKG is rate controlled. No signs of ischemia infarction. Laboratory evaluation is unremarkable. Given that patient is high risk is recommended that he be admitted for cardiac monitoring cardiology consultation. Patient refused states that he needs to go because he has a dentist appointment tomorrow that he does not want to miss. He understands that his symptoms of chest pain could be an indication of acute coronary syndrome that his symptoms may worse leading to cardiac possibly even permanent comorbidities. Patient understand the risks and will return to the emergency department should he have any worsening symptoms. at the bedside will continue to monitor patient. Patient given aspirin. Patient discharged Did you discuss the management of the patient with other professionals (professionals i.e. , PA, TREATMENT SUPERVISOR, lab, RT, psych nurse, social work program coordinator, division head, teacher, cavalry officer, casey saw operator)? Give summary @ -No Was critical care preformed (if so, how long)? @ -No Undiagnosed new problem with uncertain prognosis? @ -No Drug Therapy requiring intensive monitoring for toxicity (Heparin, Nitro, Insulin, Cardizem)? @ -No Were any procedures done? @ -No Diagnosis/symptom? Acute, or Chronic, or Acute on Chronic? Uncomplicated (without systemic symptoms) or Complicated (systemic symptoms)? @ -Palpitations, presyncope, chest pain Side effects of treatment? @ -No Exacerbation, Progression, or Severe Exacerbation? @ -No Poses a threat to life or bodily function? How? (Chest pain, [place], [place], pneumonia, PE, COPD, DKA, ARF, appy, cholecystitis, CVA, Diverticulitis, Homicidal, Suicidal, threat to staff... and all critical care pts) @ -yes (Sigifredo Hdz) Disposition <Alex Gomez - Last Filed: 09/27/24 21:23> Is patient prescribed a controlled substance at d/c from ED?: No Time of Disposition: 00:03 <Sigifredo Hdz - Last Filed: 09/28/24 00:03> Clinical Impression: Chest pain Disposition: HOME SELF-CARE Condition: Fair Instructions (If sedation given, give patient instructions): Chest Pain (ED) Referrals: Prashant Baez DO [Primary Care Provider] - 1-2 days
[2024-09-27 22:01] LABS: Basophils # (A) 0.07 10*3/uL (0.00-0.10); Basophils % (A) 0.5 %; Eosinophils # (A) 0.17 10*3/uL (0.04-0.35); Eosinophils % (A) 1.1 %; HCT 46.4 % (39.6-50.0); HGB 16.5 g/dL (13.0-17.0); Lymphocytes # (A) 1.99 10*3/uL (0.90-5.00); Lymphocytes % (A) 13.3 %; MCH 32.9 pg (27.0-32.0); MCHC 35.6 g/dL (32.0-37.0); MCV 92.6 fL (80.0-97.0); Mean Platelet Volume 9.3 fL (9.5-12.2); Monocytes # (A) 1.72 10*3/uL (0.20-1.00); Monocytes % (A) 11.5 %; Neutrophils # (A) 10.79 10*3/uL (1.80-7.70); Platelet Count 263 10*3/uL (140-440); RBC 5.01 10*6/uL (4.40-5.60); WBC 14.98 10*3/uL (4.50-10.00)
[2024-09-27] MEDS: ASPIRIN 81 MG PO STA (22:02)
--- NOTE | 2024-09-27 22:04 | XR ---
EXAMINATION TYPE: XR chest 2V DATE OF EXAM: 09/27/2024 9:55 PM COMPARISON: 10/29/2020 CLINICAL INDICATION: Male, 74 years old with history of Chest Pain, TECHNIQUE: XR chest 2V view(s) obtained. FINDINGS: The heart size is normal. The pulmonary vasculature is normal. There is some silhouetting of the diaphragm on the left. Lungs otherwise appear clear. Consider some atelectasis. IMPRESSION: 1. There may be some left basilar atelectasis. [facility], , 09/27/2024 10:01 PM
[2024-09-27 22:13] LABS: Partial Thromboplastin Time 24.7 sec (22.0-30.0); Prothrombin Time 10.9 sec (10.0-12.5)
[2024-09-27 22:14] LABS: ALT 23 U/L (4-49); AST 42 U/L (17-59); African American GFR (CKD) 57 (>60 ml/min/1.73 sqM); Albumin 4.2 g/dL (3.5-5.0); Alkaline Phosphatase 30 U/L (38-126); Anion Gap 13 mmol/L; Blood Urea Nitrogen 22 mg/dL (9-20); Calcium 9.3 mg/dL (8.4-10.2); Carbon Dioxide 22 mmol/L (22-30); Chloride 100 mmol/L (98-107); Glucose 116 mg/dL (74-99); Magnesium 2.1 mg/dL (1.6-2.3); Non-African American GFR(CKD) 49 (>60 ml/min/1.73 sqM); Sodium 135 mmol/L (137-145); Total Bilirubin 1.2 mg/dL (0.2-1.3); Total Protein 7.1 g/dL (6.3-8.2)
[2024-09-27 22:32] LABS: Potassium 4.7 mmol/L (3.5-5.1)
[2024-09-27] MEDS: PROPAFENONE 150 MG TAB PO STA (23:37)
[2024-09-27] MEDS: DILTIAZEM ORAL 30 MG TAB PO STA (23:37)
[2024-09-28] VITALS: BP 160/111; PULSE 109; RESP 18
== END 2024-09-28 00:25 | disposition home or self-care (01) ==
LOC: EC 20:08
DX: R07.9 Chest pain, unspecified (principal); Z87.891 Personal history of nicotine dependence; Z88.1 Allergy status to other antibiotic agents; Z88.8 Allergy status to other drugs, medicaments and biological substances
CPT/HCPCS: 36415; 71046; 80053; 83735; 84484; 85025; 85610; 85730; 93005; 99285